=== PATIENT | female | born 1970 | race Caucasian/White ===

== ENCOUNTER 2020-07-04 14:05 | Inpatient (IN) | payer MEDICAID, SELFPAY ==
[2020-07-04 14:13] VITALS: BP 129/70; PULSE 106; RESP 14; TEMP 36.4; O2SAT 97; BMI 27.3
--- NOTE | 2020-07-04 14:23 | W.ED.ABDPA2 ---
Documented by User: KELLE Mixon 07/04/20 16:41 HPI - Abdominal Pain General: Chief Complaint: Abdominal Pain Stated Complaint: lower abd pain Time Seen by Provider: 07/04/20 14:19 History of Present Illness: HPI narrative: Patient is a 49-year-old female who comes to the ED with UTI symptoms. Patient is a past surgical history of a hysterectomy. Symptoms started on Sunday. She describes having a burning sensation when she urinates and also some intermittent cramping pelvic pain. Currently she has no pelvic pain, but says it comes and goes and usually lasts for several minutes to about 1/2-hour. Patient has been taking ibuprofen to help with her pelvic cramping. Denies fever, chills, shortness of breath, chest pain, nausea, diarrhea, constipation, blood in the stool or hematuria. Denies any vaginal discharge or vaginal bleeding. Associated Symptoms: Reports dysuria; Denies chills, constipation, diarrhea, fever(s), hematochezia, hematuria, nausea and vomiting Review of Systems Const: Denies: fever(s), chills or fatigue Eyes: Denies: change in vision or eye discomfort ENMT: Denies: throat pain, odynophagia, nasal discharge or nasal congestion Card: Denies: chest pain, palpitations, edema, swelling of feet/ankles, dyspnea on exertion or orthopnea Resp: Denies: dyspnea, productive cough or non-productive cough GI: Denies: abdominal pain, nausea, vomiting, diarrhea, constipation or hematochezia : Reports: dysuria and pelvic pain (intermittent cramping); Denies: flank pain or hematuria Musc: Denies: neck pain, back pain or extremity swelling Skin/Breast: Denies: rash or new lesions Neuro: Denies: headache(s), numbness in extremities or weakness in extremities PFSH ED PFSH: Social History Smoking and tobacco status: current every day smoker Physical Exam Narrative: EXAM NARRATIVE: Patient is a pleasant 49-year-old female that is sitting comfortably on exam bed when I enter the room. She is showing no signs of acute distress or pain. Const: COMMON NORMALS: no acute distress, patient oriented x3, healthy appearing and alert GENERAL APPEARANCE: cooperative and comfortable HENMT: COMMON NORMALS: normocephalic HEAD & SCALP: normocephalic MOUTH: Normal oral and palatal mucosa present THROAT: posterior oropharynx normal and uvula midline Eye: COMMON NORMALS: Equal, round and reactive pupils present PUPIL: Yes Equal, round and reactive pupils present Neck/C-Spine: COMMON NORMALS: supple GENERAL: Yes normal visual inspection Resp: COMMON NORMALS: normal respiratory effort, No retractions, No use of accessory muscles and clear to auscultation bilaterally AUSCULTATION: clear to auscultation bilaterally Cardio: COMMON NORMALS: regular rate, regular rhythm, S1 normal heart sound present, S2 normal heart sound present, No gallops present (Cardio), No clicks present (Cardio), No murmurs present (Cardio) and Peripheral pulses 2+ throughout RATE: regular rate RHYTHM: regular rhythm HEART SOUNDS: S1 normal heart sound present and S2 normal heart sound present PERIPHERAL PULSES: Peripheral pulses 2+ throughout GI: COMMON NORMALS: Normal to inspection, nondistended, normoactive bowel sounds present, Soft to palpation and no masses PALPATION: Yes Soft to palpation and Yes Tenderness to palpation present (GI) Details: LLQ (mild tenderness) : COMMON NORMALS: Yes no CVA tenderness BLADDER/KIDNEY EXAM: Yes no CVA tenderness Back/Pelvis: COMMON NORMALS: no CVA tenderness Extremity: COMMON NORMALS: normal to inspection and no pedal edema Neuro: COMMON NORMALS: patient oriented x3 SENSORIUM/ORIENTATION: Yes alert GAIT: Yes Normal gait present Skin: COMMON NORMALS: no rashes or lesions noted GENERAL SKIN EXAM: no rashes or lesions noted and dry skin Course Vital Signs: Vital signs: Vital Signs Temperature 97.6 F 07/04/20 14:13 Pulse Rate 106 H 07/04/20 14:13 Respiratory Rate 14 07/04/20 14:13 Blood Pressure 129/70 07/04/20 14:13 Pulse Oximetry 97 07/04/20 14:13 MDM - Abdominal Pain MDM Narrative: Medical decision making narrative: I spoke with Dr. Cardenas about patient's case, lab and CT findings. Patient will need to be admitted. Dr. Cardenas will be taking over patient and managing admitting patient. Lab Data: Attestation: I reviewed the patient's lab results. Labs: Lab Results 08/09/20 08/09/20 08/09/20 Range/Units 14:12 14:29 14:29 WBC 24.9 H (4.0-10.0) 10^3/ uL RBC 3.85 L (4.1-5.3) 10^6/u L Hgb 12.8 (11.5-15.3) g/dL Hct 38.1 (37.0-47.0) % MCV 99.0 (81-99) fL MCH 33.2 (28.0-34.0) pg MCHC 33.6 (30.0-36.0) g/dL RDW 14.3 (12.1-15.1) % Plt Count 338 (130-400) 10^3/c mm MPV 9.4 (7.4-10.4) fL Neut % (Auto) 86.4 % Lymph % (Auto) 6.5 % [place] % (Auto) 5.5 % Eos % (Auto) 0.3 % Baso % (Auto) 0.2 % Neut # (Auto) 21.46 H (1.8-7.7) 10^3/u L Lymph # (Auto) 1.6 (0.8-4.8) 10^3/u L [place] # (Auto) 1.4 H (0.2-0.9) 10^3/u L Eos # (Auto) 0.1 (0.0-0.8) 10^3/u L Baso # (Auto) 0.1 (0.0-0.1) 10^3/u L Nucleated RBC % (a uto) 0 % Nucleated RBCs # 0.0 /100WBC Sodium 133 L (136-145) mmol/L Potassium 4.4 (3.5-5.1) mmol/L Chloride 98 (98-107) mmol/L Carbon Dioxide 27 (22-29) mmol/L Anion Gap 12.4 (5-19) BUN 6 (6-20) mg/dL Creatinine 0.7 (0.5-0.9) mg/dL GFR Calculation 88.9 L (90-130) mL/min Glucose 119 H (65-115) mg/dL Calculated Osmolal ity 273 L (285-295) mOsm/k g Lactic Acid (0.5-2.2) mmol/L Calcium 10.3 (8.5-10.5) mg/dL Total Bilirubin 0.8 (0.15-1.2) mg/dL AST 14 (0-32) U/L ALT 16 (0-33) U/L Alkaline Phosphata se 103 (35-105) IU/L Total Protein 6.9 (6.6-8.7) g/dL Albumin 3.9 (3.5-5.2) g/dL Globulin 3.0 (1.3-4.6) g/dL Lipase 14 (13-60) U/L Urine Color Yellow (Yellow) Urine Appearance Clear (CLEAR) Urine pH 5 (5-7) Ur Specific Gravit y 1.005 (1.005-1.030) Urine Protein Neg (Negative) Urine Glucose (UA) Norm (Normal) Urine Ketones Negative (Negative) Urine Blood 2+ H (Negative) Urine Nitrate Negative (Negative) Urine Bilirubin Neg (NEGATIVE) Urine Urobilinogen Norm (Negative) mg/dL Ur Leukocyte Jo Ann ase Negative (Negative) Urine RBC Rare (0-2) /hpf Urine WBC None (0-5) /hpf Ur Squamous Epith Cells 0-4 H (0-5) Amorphous Sediment Not Reportable Urine Bacteria None (NONE) 07/04/20 Range/Units 14:29 WBC (4.0-10.0) 10^3/ uL RBC (4.1-5.3) 10^6/u L Hgb (11.5-15.3) g/dL Hct (37.0-47.0) % MCV (81-99) fL MCH (28.0-34.0) pg MCHC (30.0-36.0) g/dL RDW (12.1-15.1) % Plt Count (130-400) 10^3/c mm MPV (7.4-10.4) fL Neut % (Auto) % Lymph % (Auto) % [place] % (Auto) % Eos % (Auto) % Baso % (Auto) % Neut # (Auto) (1.8-7.7) 10^3/u L Lymph # (Auto) (0.8-4.8) 10^3/u L [place] # (Auto) (0.2-0.9) 10^3/u L Eos # (Auto) (0.0-0.8) 10^3/u L Baso # (Auto) (0.0-0.1) 10^3/u L Nucleated RBC % (a uto) % Nucleated RBCs # /100WBC Sodium (136-145) mmol/L Potassium (3.5-5.1) mmol/L Chloride (98-107) mmol/L Carbon Dioxide (22-29) mmol/L Anion Gap (5-19) BUN (6-20) mg/dL Creatinine (0.5-0.9) mg/dL GFR Calculation (90-130) mL/min Glucose (65-115) mg/dL Calculated Osmolal ity (285-295) mOsm/k g Lactic Acid 0.9 (0.5-2.2) mmol/L Calcium (8.5-10.5) mg/dL Total Bilirubin (0.15-1.2) mg/dL AST (0-32) U/L ALT (0-33) U/L Alkaline Phosphata se (35-105) IU/L Total Protein (6.6-8.7) g/dL Albumin (3.5-5.2) g/dL Globulin (1.3-4.6) g/dL Lipase (13-60) U/L Urine Color (Yellow) Urine Appearance (CLEAR) Urine pH (5-7) Ur Specific Gravit y (1.005-1.030) Urine Protein (Negative) Urine Glucose (UA) (Normal) Urine Ketones (Negative) Urine Blood (Negative) Urine Nitrate (Negative) Urine Bilirubin (NEGATIVE) Urine Urobilinogen (Negative) mg/dL Ur Leukocyte Jo Ann ase (Negative) Urine RBC (0-2) /hpf Urine WBC (0-5) /hpf Ur Squamous Epith Cells (0-5) Amorphous Sediment Urine Bacteria (NONE) Imaging Data ^: CT Abd/Pel: Attestation: I personally reviewed and interpreted this imaging study as follows: Radiologist's impression: [address] [address] [address] Scan Report Signed with Cassy Patient: Radha Doe Unit #: [id number] : 1970 Age/Sex: 49 / F ADM Date: 07/04/20 Loc: ER Room/Bed: Attending Dr: Ordering Provider/Ordering MD: Trsitan Warner Date of Service: 07/04/20 Procedure(s): CT abdomen pelvis w con* [id number] Accession Number(s): [id number] Report Number: [id number]/CT abdomen pelvis w con* [id number] THIS REPORT CONTAINS FINDINGS THAT MAY BE CRITICAL TO PATIENT CARE. The findings were verbally communicated via telephone conference with Tristan Warner at 4:29 PM CDT on 07/04/2020. The findings were acknowledged and understood. Radiation Dose CTDIVOL = (mGy): DLP = 670.26 (mGy-cm) Addendum Dictated By: Sebastian Cheng MD Addendum Signed By: Sebastian Cheng MD Signed Date/Time: 07/04/20 1630 Addendum Cosigned By: PROCEDURE INFORMATION: Exam: CT Abdomen And Pelvis With Contrast Exam date and time: 07/04/2020 3:10 PM Age: 49 years old Clinical indication: Abdominal tenderness and nausea and vomiting; Prior surgery; Surgery date: 6+ months; Surgery type: Hystorectomy; Patient HX: PT states n/v, cramping x3 days, elevated wbc; Additional info: Lower abdominal pain TECHNIQUE: Imaging protocol: Computed tomography of the abdomen and pelvis with intravenous contrast. Radiation optimization: All CT scans at this facility use at least one of these dose optimization techniques: automated exposure control; mA and/or kV adjustment per patient size (includes targeted exams where dose is matched to clinical indication); or iterative reconstruction. Contrast material: OMNIPAQUE 300; Contrast volume: 95 ml; Contrast route: INTRAVENOUS (IV); COMPARISON: No relevant prior studies available. RADIATION DOSE METRICS: Total DLP (mGy-cm): 670.26 FINDINGS: Liver: Normal. No mass. Gallbladder and bile ducts: Solitary gallstone within the gallbladder. Pancreas: Normal. No ductal dilation. Spleen: Normal. No splenomegaly. Adrenals: Normal. No mass. Kidneys and ureters: Normal. No hydronephrosis. Stomach and bowel: Severe proximal sigmoid diverticulitis. 3.6 x 2.6 x 2.0 cm air-fluid level immediately inferior to the proximal sigmoid colon consistent with developing abscess from loculated/contained perforation of a diverticulum. Mild bowel wall thickening and loops of small bowel adjacent to the contained sigmoid colon perforation. Secondary enteritis/peritonitis. Appendix: Normal appendix. Intraperitoneal space: Prominent inflammation in the fat surrounding the proximal sigmoid colon and developing abscess with no evidence of additional free air or pneumoperitoneum. Vasculature: One or more calcified pelvic phleboliths. Lymph nodes: Unremarkable. No enlarged lymph nodes. Bladder: Unremarkable as visualized. Reproductive: 3.6 and 3.2 cm right ovarian cyst. 1.5 cm left ovarian cyst. Bilateral solitary ovarian calcifications. Status post hysterectomy. Bones/joints: Unremarkable. No acute fracture. Soft tissues: Unremarkable. CT/CT abdomen pelvis w con* [id number] IMPRESSION: 1. Severe proximal sigmoid diverticulitis. 2. 3.6 x 2.6 x 2.0 cm air-fluid level immediately inferior to the proximal sigmoid colon consistent with developing abscess from loculated/contained perforation of a diverticulum. 3. Prominent inflammation in the fat surrounding the proximal sigmoid colon and developing abscess with no evidence of additional free air or pneumoperitoneum. 4. Mild bowel wall thickening within loops of small bowel adjacent to the contained sigmoid colon perforation. Secondary enteritis/peritonitis. Radiation Dose CTDIVOL = (mGy): DLP = 670.26 (mGy-cm) Dictated By: Sebastian Cheng MD Signed By: Sebastian Cheng MD Signed Date/Time: 07/04/201605 DD/ 160 Discharge Plan Discharge Patient Disposition: Admitted As Inpatient Clinical Impression: Diverticulitis, Abdominal abscess Condition: Stable Referrals: Violeta Tavarez MD [Primary Care Provider] - Coding Level of Care Code ED Refractory Manager for Chg Fwd Exam Comprehensive Documented by User: Ana Cardenas 07/04/20 16:38 HPI - Abdominal Pain General: Chief Complaint: Abdominal Pain Stated Complaint: lower abd pain Time Seen by Provider: 07/04/20 14:19 PFSH ED PFSH: Social History Smoking and tobacco status: current every day smoker Course Vital Signs: Vital signs: Vital Signs Temperature 97.6 F 07/04/20 14:13 Pulse Rate 106 H 07/04/20 14:13 Respiratory Rate 14 07/04/20 14:13 Blood Pressure 129/70 07/04/20 14:13 Pulse Oximetry 97 07/04/20 14:13 MDM - Abdominal Pain MDM Narrative: Medical decision making narrative: Care assumed by me after CT scan was performed. On my exam the patient has no peritonitis but has tenderness in the left lower quadrant. She does not appear clinically septic. Her heart rate is improved after IV fluids and pain medication. I reviewed the scan in full with Dr. Wilson who is agreeable to admission. Patient be put on the medical surge floor and receive IV antibiotics and IV fluids. Further care will be dictated by him. Lab Data: Attestation: I reviewed the patient's lab results. Labs: Lab Results 07/04/20 07/04/20 07/04/20 Range/Units 14:12 14:29 14:29 WBC 24.9 H (4.0-10.0) 10^3/ uL RBC 3.85 L (4.1-5.3) 10^6/u L Hgb 12.8 (11.5-15.3) g/dL Hct 38.1 (37.0-47.0) % MCV 99.0 (81-99) fL MCH 33.2 (28.0-34.0) pg MCHC 33.6 (30.0-36.0) g/dL RDW 14.3 (12.1-15.1) % Plt Count 338 (130-400) 10^3/c mm MPV 9.4 (7.4-10.4) fL Neut % (Auto) 86.4 % Lymph % (Auto) 6.5 % [place] % (Auto) 5.5 % Eos % (Auto) 0.3 % Baso % (Auto) 0.2 % Neut # (Auto) 21.46 H (1.8-7.7) 10^3/u L Lymph # (Auto) 1.6 (0.8-4.8) 10^3/u L [place] # (Auto) 1.4 H (0.2-0.9) 10^3/u L Eos # (Auto) 0.1 (0.0-0.8) 10^3/u L Baso # (Auto) 0.1 (0.0-0.1) 10^3/u L Nucleated RBC % (a uto) 0 % Nucleated RBCs # 0.0 /100WBC Sodium 133 L (136-145) mmol/L Potassium 4.4 (3.5-5.1) mmol/L Chloride 98 (98-107) mmol/L Carbon Dioxide 27 (22-29) mmol/L Anion Gap 12.4 (5-19) BUN 6 (6-20) mg/dL Creatinine 0.7 (0.5-0.9) mg/dL GFR Calculation 88.9 L (90-130) mL/min Glucose 119 H (65-115) mg/dL Calculated Osmolal ity 273 L (285-295) mOsm/k g Lactic Acid (0.5-2.2) mmol/L Calcium 10.3 (8.5-10.5) mg/dL Total Bilirubin 0.8 (0.15-1.2) mg/dL AST 14 (0-32) U/L ALT 16 (0-33) U/L Alkaline Phosphata se 103 (35-105) IU/L Total Protein 6.9 (6.6-8.7) g/dL Albumin 3.9 (3.5-5.2) g/dL Globulin 3.0 (1.3-4.6) g/dL Lipase 14 (13-60) U/L Urine Color Yellow (Yellow) Urine Appearance Clear (CLEAR) Urine pH 5 (5-7) Ur Specific Gravit y 1.005 (1.005-1.030) Urine Protein Neg (Negative) Urine Glucose (UA) Norm (Normal) Urine Ketones Negative (Negative) Urine Blood 2+ H (Negative) Urine Nitrate Negative (Negative) Urine Bilirubin Neg (NEGATIVE) Urine Urobilinogen Norm (Negative) mg/dL Ur Leukocyte Jo Ann ase Negative (Negative) Urine RBC Rare (0-2) /hpf Urine WBC None (0-5) /hpf Ur Squamous Epith Cells 0-4 H (0-5) Amorphous Sediment Not Reportable Urine Bacteria None (NONE) 07/04/20 Range/Units 14:29 WBC (4.0-10.0) 10^3/ uL RBC (4.1-5.3) 10^6/u L Hgb (11.5-15.3) g/dL Hct (37.0-47.0) % MCV (81-99) fL MCH (28.0-34.0) pg MCHC (30.0-36.0) g/dL RDW (12.1-15.1) % Plt Count (130-400) 10^3/c mm MPV (7.4-10.4) fL Neut % (Auto) % Lymph % (Auto) % [place] % (Auto) % Eos % (Auto) % Baso % (Auto) % Neut # (Auto) (1.8-7.7) 10^3/u L Lymph # (Auto) (0.8-4.8) 10^3/u L [place] # (Auto) (0.2-0.9) 10^3/u L Eos # (Auto) (0.0-0.8) 10^3/u L Baso # (Auto) (0.0-0.1) 10^3/u L Nucleated RBC % (a uto) % Nucleated RBCs # /100WBC Sodium (136-145) mmol/L Potassium (3.5-5.1) mmol/L Chloride (98-107) mmol/L Carbon Dioxide (22-29) mmol/L Anion Gap (5-19) BUN (6-20) mg/dL Creatinine (0.5-0.9) mg/dL GFR Calculation (90-130) mL/min Glucose (65-115) mg/dL Calculated Osmolal ity (285-295) mOsm/k g Lactic Acid 0.9 (0.5-2.2) mmol/L Calcium (8.5-10.5) mg/dL Total Bilirubin (0.15-1.2) mg/dL AST (0-32) U/L ALT (0-33) U/L Alkaline Phosphata se (35-105) IU/L Total Protein (6.6-8.7) g/dL Albumin (3.5-5.2) g/dL Globulin (1.3-4.6) g/dL Lipase (13-60) U/L Urine Color (Yellow) Urine Appearance (CLEAR) Urine pH (5-7) Ur Specific Gravit y (1.005-1.030) Urine Protein (Negative) Urine Glucose (UA) (Normal) Urine Ketones (Negative) Urine Blood (Negative) Urine Nitrate (Negative) Urine Bilirubin (NEGATIVE) Urine Urobilinogen (Negative) mg/dL Ur Leukocyte Jo [place] ase (Negative) Urine RBC (0-2) /hpf Urine WBC (0-5) /hpf Ur Squamous Epith Cells (0-5) Amorphous Sediment Urine Bacteria (NONE) Discharge Plan Discharge Patient Disposition: Admitted As Inpatient Clinical Impression: Diverticulitis, Abdominal abscess Condition: Stable Referrals: Violeta Tavarez MD [Primary Care Provider] - Coding Level of Care Code ED Refractory Manager for Chg Fwd Exam Comprehensive
[2020-07-04 14:28] LABS: Bilirubin Urine Neg (NEGATIVE); Blood Urine 2+ (Negative); Glucose Urine UA Norm (Normal); Ketones Urine Negative (Negative); Leukocyte Esterase Urine Negative (Negative); Nitrate Urine Negative (Negative); Protein Urine Neg (Negative); Specific Gravity, Urine 1.005 (1.005-1.030); Urine Appearance Clear (CLEAR); Urine Color Yellow (Yellow); Urobilinogen Urine Norm (Negative); pH Urine 5 (5-7)
[2020-07-04 14:29] LABS: RBC Urine RARE /hpf (0-2); Squamous Epithelial Cell Urine 0-4 (0-5)
[2020-07-04 14:31] LABS: Add Urine Culture? No
[2020-07-04 14:35] LABS: Basophils # 0.1 10^3/uL (0.0-0.1); Basophils % 0.2 %; Eosinophils # 0.1 10^3/uL (0.0-0.8); Eosinophils % 0.3 %; Hematocrit 38.1 % (37.0-47.0); Hemoglobin 12.8 g/dL (11.5-15.3); Lymphocytes # 1.6 10^3/uL (0.8-4.8); Lymphocytes % 6.5 %; Mean Corpuscular HGB Conc 33.6 g/dL (30.0-36.0); Mean Corpuscular Hemoglobin 33.2 pg (28.0-34.0); Mean Platelet Volume 9.4 fL (7.4-10.4); Monocytes # 1.4 10^3/uL (0.2-0.9); Monocytes % 5.5 %; Neutrophils # 21.46 10^3/uL (1.8-7.7); Neutrophils % 86.4 %; Nucleated Red Blood Cells % 0 %; Platelet Count 338 10^3/cmm (130-400); Red Blood Count 3.85 10^6/uL (4.1-5.3); Red Cell Distribution Width 14.3 % (12.1-15.1); White Blood Count 24.9 10^3/uL (4.0-10.0)
--- NOTE | 2020-07-04 14:58 | CTR_ITS ---
PROCEDURE INFORMATION: Exam: CT Abdomen And Pelvis With Contrast Exam date and time: 07/04/2020 3:10 PM Age: 49 years old Clinical indication: Abdominal tenderness and nausea and vomiting; Prior surgery; Surgery date: 6+ months; Surgery type: Hystorectomy; Patient HX: PT states n/v, cramping x3 days, elevated wbc; Additional info: Lower abdominal pain TECHNIQUE: Imaging protocol: Computed tomography of the abdomen and pelvis with intravenous contrast. Radiation optimization: All CT scans at this facility use at least one of these dose optimization techniques: automated exposure control; mA and/or kV adjustment per patient size (includes targeted exams where dose is matched to clinical indication); or iterative reconstruction. Contrast material: OMNIPAQUE 300; Contrast volume: 95 ml; Contrast route: INTRAVENOUS (IV); COMPARISON: No relevant prior studies available. RADIATION DOSE METRICS: Total DLP (mGy-cm): 670.26 FINDINGS: Liver: Normal. No mass. Gallbladder and bile ducts: Solitary gallstone within the gallbladder. Pancreas: Normal. No ductal dilation. Spleen: Normal. No splenomegaly. Adrenals: Normal. No mass. Kidneys and ureters: Normal. No hydronephrosis. Stomach and bowel: Severe proximal sigmoid diverticulitis. 3.6 x 2.6 x 2.0 cm air-fluid level immediately inferior to the proximal sigmoid colon consistent with developing abscess from loculated/contained perforation of a diverticulum. Mild bowel wall thickening and loops of small bowel adjacent to the contained sigmoid colon perforation. Secondary enteritis/peritonitis. Appendix: Normal appendix. Intraperitoneal space: Prominent inflammation in the fat surrounding the proximal sigmoid colon and developing abscess with no evidence of additional free air or pneumoperitoneum. Vasculature: One or more calcified pelvic phleboliths. Lymph nodes: Unremarkable. No enlarged lymph nodes. Bladder: Unremarkable as visualized. Reproductive: 3.6 and 3.2 cm right ovarian cyst. 1.5 cm left ovarian cyst. Bilateral solitary ovarian calcifications. Status post hysterectomy. Bones/joints: Unremarkable. No acute fracture. Soft tissues: Unremarkable. CT/CT abdomen pelvis w con* [id number] IMPRESSION: 1. Severe proximal sigmoid diverticulitis. 2. 3.6 x 2.6 x 2.0 cm air-fluid level immediately inferior to the proximal sigmoid colon consistent with developing abscess from loculated/contained perforation of a diverticulum. 3. Prominent inflammation in the fat surrounding the proximal sigmoid colon and developing abscess with no evidence of additional free air or pneumoperitoneum. 4. Mild bowel wall thickening within loops of small bowel adjacent to the contained sigmoid colon perforation. Secondary enteritis/peritonitis. Radiation Dose CTDIVOL = (mGy): DLP = 670.26 (mGy-cm)
[2020-07-04 15:11] LABS: Alanine Aminotransferase 16 U/L (0-33); Albumin Level 3.9 g/dL (3.5-5.2); Alkaline Phosphatase 103 IU/L (35-105); Anion Gap 12.4 (5-19); Aspartate Amino Transferase 14 U/L (0-32); Blood Urea Nitrogen 6 mg/dL (6-20); Calcium 10.3 mg/dL (8.5-10.5); Carbon Dioxide 27 mmol/L (22-29); Chloride 98 mmol/L (98-107); Glomerular Filtration Rate 88.9 mL/min (90-130); Glucose 119 mg/dL (65-115); Lipase 14 U/L (13-60); Osmolality Calculated 273 mOsm/kg (285-295); Potassium 4.4 mmol/L (3.5-5.1); Sodium 133 mmol/L (136-145); Total Bilirubin 0.8 mg/dL (0.15-1.2); Total Protein 6.9 g/dL (6.6-8.7)
[2020-07-04] MEDS: iohexol 300 mg/mL 100 mL Btl IV (15:20)
[2020-07-04] MEDS: piperacillin-tazobactam 3.375 GM in sodium chloride 0.9% (plus) 50 ML IV ×2 (16:31→23:52)
[2020-07-04 16:32] LABS: Lactic Sepsis W/Reflex 0.9 mmol/L (0.5-2.2)
[2020-07-04 17:52] VITALS: BP 127/80; PULSE 73; RESP 14; O2SAT 98
[2020-07-04] MEDS: dextrose 5%-sod chloride 0.45% 1,000 ML 100 ML IV (18:02)
--- NOTE | 2020-07-04 19:32 | PM.HP ---
Providers/Chief Complaint Admitting Physician: Shay Wilson MD Primary Care Provider: Violeta Tavarez MD Chief Complaint: lower abd pain History of Present Illness Radha Doe is a 49 year old female who presented to the ER from the urgent care with left lower quadrant pain. Patient states that her abdominal pain started 2 weeks ago when she thought she was having a UTI. She went to the urgent care today and she had vomiting when she tried to drink a lot of water to get a urine sample. Patient denies any fevers or chills. No constipation or diarrhea. No similar episodes in the past. No history of prior diverticulitis. No prior colonoscopy. Review of Systems General: Reports: 10 or more systems reviewed and unremarkable except in HPI and below Medications/Allergies Home Medications Medication Instructions Recorded Confirmed Last Taken Type albuterol sulfate 2.5 mg INHALATION Q4H PRN 07/04/20 07/04/20 07/04/20 History ibuprofen 800 mg PO TID PRN 07/04/20 07/04/20 07/04/20 13:40 History 800 mg Allergies Allergy/AdvReac Type Severity Reaction Status Date / Time No Known Allergies Allergy Verified 07/04/20 14:41 PFSH Acute PFSH: Medical History (Updated 07/04/20 @ 19:34 by Shay Wilson MD) Diverticular disease of intestine with perforation and abscess Surgical History (Updated 07/04/20 @ 19:32 by Shay Wilson MD) H/O tubal ligation H/O: hysterectomy S/P excision of ganglion cyst Social History Smoking and tobacco status: current every day smoker Female Reproductive History: Date of last menstrual period: 11/26/14 Vitals/I&O/Wt Last Vital Signs Temp 97.6 F 07/04/20 14:13 Pulse 73 07/04/20 17:52 Resp 14 07/04/20 17:52 BP 127/80 07/04/20 17:52 Pulse Ox 98 07/04/20 17:52 Weight last 48 hrs Weight 154 lb Physical Exam Narrative: EXAM NARRATIVE: HEENT: Normocephalic Eye: Sclera /conjunctiva normal Respiratory and chest: Bilateral clear breath sounds on auscultation Cardiovascular: Normal S1 and S2 heart sounds Abdomen: Soft to palpation, tender left lower quadrant, rest of the abdomen is benign Neurological: Oriented to place person and time Skin: Intact, no lesions appreciated on gross exam Data : 07/04/20 14:29 07/04/20 14:29 Micro: Microbiology 07/04/20 14:29 Blood Culture - Preliminary Blood SPECIMEN COLLECTED CT Abd/Pel: Radiologist's impression: 1. Severe proximal sigmoid diverticulitis. 2. 3.6 x 2.6 x 2.0 cm air-fluid level immediately inferior to the proximal sigmoid colon consistent with developing abscess from loculated/contained perforation of a diverticulum. 3. Prominent inflammation in the fat surrounding the proximal sigmoid colon and developing abscess with no evidence of additional free air or pneumoperitoneum. 4. Mild bowel wall thickening within loops of small bowel adjacent to the contained sigmoid colon perforation. Secondary enteritis/peritonitis. A&P Assessment and plan (1) Diverticular disease of intestine with perforation and abscess: 49-year-old female who presents with left lower quadrant pain, leukocytosis of 24.[address] scan showing perforated sigmoid diverticulitis with 3.6 x 2.6 x 2 cm abscess. Patient is currently hemodynamically stable IV fluids at 125 cc/h N.p.o. except ice chips Daily labs IV Zosyn Lovenox for DVT prophylaxis Pepcid for GI prophylaxis Patient will need greater than 2 nights of inpatient stay to ensure resolution of leukocytosis and that she does not need surgery Status: Acute Attestations Medical Necessity Statement*: Perforated diverticular abscess requiring continued inpatient stay for IV antibiotics Coding Level of Care Code Acute [employer] Driver for vladimir Dawkins Diagnoses Diverticular disease of intestine with perforation and abscess K57.80
[2020-07-04] MEDS: famotidine 20 mg/2 mL INJ IVP (19:41)
[2020-07-04] MEDS: D5-NS 0.45% + KCL 20 mEq 20 MEQ/1,000 ML BAG 125 MEQ IV (19:42)
[2020-07-04 20:05] VITALS: BP 127/78; PULSE 93; RESP 18; TEMP 36.6; O2SAT 99
[2020-07-04 20:41] VITALS: PULSE 96; RESP 12; O2SAT 97
[2020-07-04] MEDS: acetaminophen 325 mg Tablet 650 MG PO (22:58)
[2020-07-05] VITALS (9 sets, daily range): BP systolic 100–140; BP diastolic 59–73; PULSE 82–113; RESP 16–20; TEMP 36.7–37.1; O2SAT 94–98
[2020-07-05] MEDS: D5-NS 0.45% + KCL 20 mEq 20 MEQ/1,000 ML BAG 125 MEQ IV ×3 (02:48→20:22)
[2020-07-05] MEDS: morphine 4 mg/mL SDV 1 mL 2 MG IVP ×2 (03:24→20:59)
[2020-07-05 04:38] LABS: Basophils % 0.2 %; Eosinophils # 0.1 10^3/uL (0.0-0.8); Eosinophils % 0.4 %; Hematocrit 38.3 % (37.0-47.0); Hemoglobin 12.9 g/dL (11.5-15.3); Lymphocytes % 9.5 %; Mean Corpuscular HGB Conc 33.7 g/dL (30.0-36.0); Mean Corpuscular Hemoglobin 34.2 pg (28.0-34.0); Mean Corpuscular Volume 101.6 fL (81-99); Mean Platelet Volume 9.9 fL (7.4-10.4); Monocytes # 1.2 10^3/uL (0.2-0.9); Monocytes % 5.6 %; Neutrophils # 17.32 10^3/uL (1.8-7.7); Neutrophils % 82.9 %; Nucleated Red Blood Cells % 0 %; Platelet Count 353 10^3/cmm (130-400); Red Blood Count 3.77 10^6/uL (4.1-5.3); Red Cell Distribution Width 14.4 % (12.1-15.1); White Blood Count 20.9 10^3/uL (4.0-10.0)
[2020-07-05 04:55] LABS: Anion Gap 10.2 (5-19); Blood Urea Nitrogen 6 mg/dL (6-20); Calcium 8.9 mg/dL (8.5-10.5); Carbon Dioxide 26 mmol/L (22-29); Chloride 104 mmol/L (98-107); Glomerular Filtration Rate 88.9 mL/min (90-130); Glucose 114 mg/dL (65-115); Osmolality Calculated 279 mOsm/kg (285-295); Potassium 4.2 mmol/L (3.5-5.1); Sodium 136 mmol/L (136-145)
[2020-07-05] MEDS: enoxaparin 40 mg/0.4 mL Syringe SUBCUT (05:52)
[2020-07-05] MEDS: ondansetron 2 mg/ML SDV 2 mL 4 MG IVP (05:58)
[2020-07-05] MEDS: acetaminophen 325 mg Tablet 650 MG PO ×2 (07:44→14:13)
[2020-07-05] MEDS: piperacillin-tazobactam 3.375 GM in sodium chloride 0.9% (plus) 50 ML IV ×2 (07:44→17:59)
[2020-07-05] MEDS: famotidine 20 mg/2 mL INJ IVP ×2 (07:49→18:46)
[2020-07-05] MEDS: docusate sodium 100 mg Capsule PO ×2 (08:10→17:59)
--- NOTE | 2020-07-05 15:38 | PM.PN ---
Subjective Subjective: Interval history: She has some left lower quadrant pain, no nausea or vomiting, feels a bit bloated Vitals/I&O/Wt Last Vital Signs Temp 98.1 F 07/05/20 12:30 Pulse 88 07/05/20 12:30 Resp 18 07/05/20 12:30 BP 111/73 07/05/20 12:30 Pulse Ox 98 07/05/20 12:30 07/05/20 07/05/20 07/05/20 06:59 14:59 22:59 Intake Total 937.5 / 937.5 1220 / 1220 Output Total 1150 / 1350 300 / 300 Balance -212.5 / -412.5 920 / 920 Weight last 48 hrs Weight 154 lb Physical Exam Narrative: EXAM NARRATIVE: Abdomen: Soft, minimally distended, tender left lower quadrant Data : 07/05/20 03:47 07/05/20 03:47 Micro: Microbiology 07/04/20 14:29 Blood Culture - Preliminary Blood NEGATIVE TO DATE A&P Assessment and plan (1) Diverticular disease of intestine with perforation and abscess: 49-year-old female who presents with left lower quadrant pain, WBC down to 20 today. Patient is currently hemodynamically stable IV fluids at 125 cc/h Clear liquid diet Daily labs IV Zosyn Lovenox for DVT prophylaxis Pepcid for GI prophylaxis Patient will need greater than 2 nights of inpatient stay to ensure resolution of leukocytosis and that she does not need surgery Status: Acute Attestations Medical Necessity Statement*: Perforated diverticulitis Coding Level of Care Code Acute Bomb Squad Officer for vladimir Dawkins Diagnoses Diverticular disease of intestine with perforation and abscess K57.80
[2020-07-06] VITALS (9 sets, daily range): BP systolic 108–122; BP diastolic 62–77; PULSE 75–97; RESP 14–20; TEMP 36.4–37.1; O2SAT 94–98
[2020-07-06] MEDS: piperacillin-tazobactam 3.375 GM in sodium chloride 0.9% (plus) 50 ML IV ×3 (00:13→18:20)
[2020-07-06] MEDS: morphine 4 mg/mL SDV 1 mL 2 MG IVP (00:19)
[2020-07-06 05:03] LABS: Basophils # 0.1 10^3/uL (0.0-0.1); Basophils % 0.4 %; Eosinophils # 0.2 10^3/uL (0.0-0.8); Eosinophils % 1.3 %; Hematocrit 37.6 % (37.0-47.0); Lymphocytes # 1.7 10^3/uL (0.8-4.8); Lymphocytes % 10.6 %; Mean Corpuscular HGB Conc 31.9 g/dL (30.0-36.0); Mean Corpuscular Hemoglobin 32.8 pg (28.0-34.0); Mean Corpuscular Volume 102.7 fL (81-99); Mean Platelet Volume 9.7 fL (7.4-10.4); Monocytes # 1.1 10^3/uL (0.2-0.9); Monocytes % 6.4 %; Neutrophils # 13.05 10^3/uL (1.8-7.7); Neutrophils % 79.7 %; Nucleated Red Blood Cells % 0 %; Platelet Count 355 10^3/cmm (130-400); Red Blood Count 3.66 10^6/uL (4.1-5.3); Red Cell Distribution Width 14.3 % (12.1-15.1); White Blood Count 16.4 10^3/uL (4.0-10.0)
[2020-07-06 05:30] LABS: Anion Gap 8.2 (5-19); Blood Urea Nitrogen 4 mg/dL (6-20); Calcium 8.8 mg/dL (8.5-10.5); Carbon Dioxide 30 mmol/L (22-29); Chloride 102 mmol/L (98-107); Glomerular Filtration Rate 76.2 mL/min (90-130); Glucose 123 mg/dL (65-115); Osmolality Calculated 279 mOsm/kg (285-295); Potassium 4.2 mmol/L (3.5-5.1); Sodium 136 mmol/L (136-145)
[2020-07-06] MEDS: ondansetron 2 mg/ML SDV 2 mL 4 MG IVP (05:43)
[2020-07-06] MEDS: famotidine 20 mg/2 mL INJ IVP ×2 (06:29→18:30)
[2020-07-06] MEDS: enoxaparin 40 mg/0.4 mL Syringe SUBCUT (08:39)
[2020-07-06] MEDS: acetaminophen 325 mg Tablet 650 MG PO (12:05)
--- NOTE | 2020-07-06 17:32 | P.PN_ITS ---
Subjective Subjective: Interval history: Patient passing small amount of flatus, no BM, no nausea or vomiting, tolerating full liquid diet Vitals/I&O/Wt Last Vital Signs Temp 97.7 F 07/06/20 16:00 Pulse 76 07/06/20 16:00 Resp 14 07/06/20 16:00 BP 117/73 07/06/20 16:00 Pulse Ox 98 07/06/20 16:00 07/06/20 07/06/20 07/06/20 06:59 14:59 22:59 Intake Total 50 / 2850 120 / 120 Output Total 1500 / 2350 900 / 900 Balance -1450 / 500 120 / -780 -900 / -780 Physical Exam Narrative: EXAM NARRATIVE: Abdomen: Soft, slightly distended, nontender Data : 07/07/20 04:47 07/07/20 04:47 Micro: Microbiology 07/04/20 14:29 Blood Culture - Preliminary Blood NEGATIVE TO DATE A&P Assessment and plan (1) Diverticular disease of intestine with perforation and abscess: 49-year-old female who presents with left lower quadrant pain, WBC down to 16 today. Patient is currently hemodynamically stable IV fluids at50 cc/h Clear liquid diet Daily labs IV Zosyn Lovenox for DVT prophylaxis Pepcid for GI prophylaxis Patient will need greater than 2 nights of inpatient stay to ensure resolution of leukocytosis and that she does not need surgery Status: Acute Attestations Medical Necessity Statement*: Perforated sigmoid diverticulitis requiring continued IV antibiotics Coding Level of Care Code Acute Journeyman Pipefitter for [facility] Pamela Diagnoses Diverticular disease of intestine with perforation and abscess K57.80
[2020-07-06] MEDS: D5-NS 0.45% + KCL 20 mEq 20 MEQ/1,000 ML BAG 125 MEQ IV (18:21)
[2020-07-07] VITALS: BP 121/72; PULSE 76; RESP 20; TEMP 36.8; O2SAT 97
[2020-07-07] MEDS: piperacillin-tazobactam 3.375 GM in sodium chloride 0.9% (plus) 50 ML IV (01:21)
[2020-07-07 05:18] VITALS: BP 102/65; PULSE 71; RESP 20; TEMP 36.6; O2SAT 97
[2020-07-07 06:22] LABS: Basophils # 0.1 10^3/uL (0.0-0.1); Basophils % 0.5 %; Eosinophils # 0.6 10^3/uL (0.0-0.8); Eosinophils % 4.6 %; Hematocrit 40.7 % (37.0-47.0); Hemoglobin 13.2 g/dL (11.5-15.3); Lymphocytes # 1.8 10^3/uL (0.8-4.8); Lymphocytes % 15.5 %; Mean Corpuscular HGB Conc 32.4 g/dL (30.0-36.0); Mean Corpuscular Hemoglobin 33.2 pg (28.0-34.0); Mean Corpuscular Volume 102.3 fL (81-99); Mean Platelet Volume 9.8 fL (7.4-10.4); Monocytes # 0.8 10^3/uL (0.2-0.9); Monocytes % 6.7 %; Neutrophils # 8.24 10^3/uL (1.8-7.7); Neutrophils % 69.7 %; Nucleated Red Blood Cells % 0 %; Platelet Count 456 10^3/cmm (130-400); Red Blood Count 3.98 10^6/uL (4.1-5.3); Red Cell Distribution Width 14.3 % (12.1-15.1); White Blood Count 11.8 10^3/uL (4.0-10.0)
[2020-07-07 06:56] LABS: Anion Gap 10.2 (5-19); Blood Urea Nitrogen 5 mg/dL (6-20); Calcium 9.1 mg/dL (8.5-10.5); Carbon Dioxide 31 mmol/L (22-29); Chloride 102 mmol/L (98-107); Glomerular Filtration Rate 88.9 mL/min (90-130); Glucose 89 mg/dL (65-115); Osmolality Calculated 283 mOsm/kg (285-295); Potassium 4.2 mmol/L (3.5-5.1); Sodium 139 mmol/L (136-145)
[2020-07-07 08:00] VITALS: BP 115/66; PULSE 74; RESP 16; TEMP 37; O2SAT 97
[2020-07-07] MEDS: famotidine 20 mg/2 mL INJ IVP (08:33)
[2020-07-07 08:39] VITALS: PULSE 78; RESP 16; O2SAT 97
[2020-07-07 08:42] VITALS: PULSE 83
--- NOTE | 2020-07-07 08:45 | P.PN_ITS ---
Subjective Subjective: Interval history: Patient feels great, no nausea or vomiting, tolerating a liquid diet, passing flatus no BM Vitals/I&O/Wt Last Vital Signs Temp 98.6 F 07/07/20 08:00 Pulse 83 07/07/20 08:42 Resp 16 07/07/20 08:39 BP 115/66 07/07/20 08:00 Pulse Ox 97 07/07/20 08:39 07/06/20 07/07/20 07/07/20 22:59 06:59 14:59 Intake Total 222.083 / 392.083 Output Total 1200 / 1500 300 / 1500 600 / 600 Balance -977.917 / -1107.917 -300 / -1107.917 -600 / -600 Weight last 48 hrs Weight 178 lb 2 oz Physical Exam Narrative: EXAM NARRATIVE: Abdomen: Soft, nondistended, minimally tender Data : 07/07/20 04:47 07/07/20 04:47 A&P Assessment and plan (1) Diverticular disease of intestine with perforation and abscess: 49-year-old female who presents with left lower quadrant pain, WBC down to 16 today. Patient is currently hemodynamically stable DC home today Status: Acute Attestations Medical Necessity Statement*: Perforated diverticulitis Coding Level of Care Code Acute [place] Technical Lead Senior Developer for Nayeli Dawkins Diagnoses Diverticular disease of intestine with perforation and abscess K57.80
--- NOTE | 2020-07-07 08:48 | PM.DCS ---
Discharge Providers Date of Admission: 07/04/20 16:27 Date of Discharge: July 07, 2020 Attending Provider at Admission: Shay Wilson MD Attending Provider at Discharge: Shay Wilson MD Primary Care Provider: Violeta Tavarez MD Diagnoses at Discharge Discharge Diagnosis (1) Diverticular disease of intestine with perforation and abscess: Status: Acute Reason for Visit Reason for Visit: lower abd pain Hospital Course Hospital Course: This is a 49-year-old female who was admitted to the hospital for IV antibiotics for perforated sigmoid diverticulitis. Over the next 3 days her white count went down from 20 5K to 11 K. Patient is afebrile and hemodynamically stable and tolerating a full liquid diet at time of discharge. Since patient is doing clinically better I did not repeat imaging but plan to obtain a CT abdomen pelvis in 2 weeks to ensure resolution of abscess. Discharge Data Data Completed and Pending: Completed Studies During Hospitalization Category Date Time Status CT abdomen pelvis w con* [id number] Urge nt Cat Scan 07/04/20 14:58 Completed Pending at discharge Category Date Time Status Blood Culture Sta t Lab 07/04/20 14:29 Results Labs from last 24 hours 07/07/20 07/07/20 04:47 04:47 WBC 11.8 H RBC 3.98 L Hgb 13.2 Hct 40.7 MCV 102.3 H MCH 33.2 MCHC 32.4 RDW 14.3 Plt Count 456 H MPV 9.8 Neut % (Auto) 69.7 Lymph % (Auto) 15.5 [place] % (Auto) 6.7 Eos % (Auto) 4.6 Baso % (Auto) 0.5 Neut # (Auto) 8.24 H Lymph # (Auto) 1.8 [place] # (Auto) 0.8 Eos # (Auto) 0.6 Baso # (Auto) 0.1 Nucleated RBC % (a uto) 0 Nucleated RBCs # 0.0 Sodium 139 Potassium 4.2 Chloride 102 Carbon Dioxide 31 H Anion Gap 10.2 BUN 5 L Creatinine 0.7 GFR Calculation 88.9 L Glucose 89 Calculated Osmolal ity 283 L Calcium 9.1 Vitals: Last Vital Signs Temp 98.6 F 07/07/20 08:00 Pulse 83 07/07/20 08:42 Resp 16 07/07/20 08:39 BP 115/66 07/07/20 08:00 Pulse Ox 97 07/07/20 08:39 Discharge Plan Discharge Patient Disposition: Home Condition: Stable Prescriptions: New Senna Plus 8.6-50 mg capsule 1 tab-cap PO BID Qty: 60 RF: 0 Continued ibuprofen 800 mg Tablet 800 mg PO TID PRN (Reason: Pain) RF: 0 albuterol sulfate 2.5 mg /3 mL (0.083 %) Solution For Nebulization 2.5 mg INHALATION Q4H PRN (Reason: Shortness Of Breath) RF: 0 Discharge Orders: Discharge Order (Routine); Ordered 07/07/20 Ordered By: Shay Wilson Referrals: Violeta Tavarez MD [Primary Care Provider] - Shay Wilson MD [Physician] - 2 weeks Discharge Diet: Advance as tolerated Discharge Activity: Resume usual activity Discharge Attestations Time Spent in Discharge Care*: less than 30 min Quality Metrics Clinical Quality Measures During this hospital stay, did patient experience: None Coding Level of Care Code Acute Chocolate Finisher for [facility] Fwd Diagnoses Diverticular disease of intestine with perforation and abscess K57.80
[2020-07-07] MEDS: acetaminophen 325 mg Tablet 650 MG PO (09:14)
[2020-07-07 09:56] VITALS: BP 115/66; PULSE 83; RESP 16; TEMP 37; O2SAT 97
--- NOTE | 2020-07-07 12:19 | PC.RESP ---
Smoking Cessation information sent to patient.
== END 2020-07-07 10:25 | disposition home or self-care (01) | DRG 392 ==
LOC: ER 16:38 → MEDSURG 17:32
PROVIDERS: Emergency Medicine; Physician Assistant; Admitting Provider Surgery; PCP Family Medicine; Visit Provider Surgery
DX: K57.80 Diverticulitis of intestine, part unspecified, with perforation and abscess without bleeding (principal); F17.210 Nicotine dependence, cigarettes, uncomplicated
CPT/HCPCS: 12345; 36415; 74177; 80048; 80053; 81000; 81001; 83605; 83690; 85025; 87040; 87086; 94640; 96372; 96375; 99283; J1650; J2270; J2405; J2543; J3490; J7611; J7799; Q9967

== ENCOUNTER 2020-07-22 07:47 | Outpatient (CLI) | payer MEDICAID, SELFPAY ==
--- NOTE | 2020-07-22 09:30 | CT_ITS ---
WS: [id number] CT ABDOMEN AND PELVIS WITH CONTRAST HISTORY: perforated diverticulitis TECHNIQUE: Imaging performed of the abdomen and pelvis with IV contrast. Single phase imaging of the abdomen. Coronal and sagittal reformats are submitted. All CT scans at [facility] use at least one of these dose optimization techniques: automated exposure control; mA and/or kV adjustment per patient size (includes targeted exams where dose is matched to clinical indication); or iterativ e reconstruction. IV CONTRAST: Omnipaque 300; 95 mL IV. Oral contrast: Yes. DLP: 1041.64 mGycm COMPARISON: 07/04/2020 Lower thorax: Lung bases are clear. Heart is normal size. Small hiatal hernia. Liver/biliary system: Mild hepatomegaly. No bile duct dilatation. No mass. Gallbladder: Mildly contracted gallbladder with a central stone. No adjacent inflammation. Pancreas: Normal. Spleen: Normal. Adrenal glands: Normal. Right kidney: Normal. Left kidney: Normal. Aorta: Mild atherosclerosis with no aneurysm. Lymphadenopathy: None. Free fluid: None. GI tract: Significant improvement in the recently described inflammatory process surrounding the sigm oid colon. There is mild persistent bowel wall thickening measuring up to 10 mm of the sigmoid colon. The lumen is narrowed throughout a long segment of the sigmoid but no obstruction. Significant decre ase in size of the abscess posterior and inferior to the sigmoid. There are a few small foci of air p ersistent the cavity has significantly decreased in size. Maximum diameter of 1.6 cm. The adjacent sm all bowel loops are also mildly thickened but improved. The mesenteric edema and inflammatory strandi ng has improved significantly but mildly persists. The appendix is normal. Abdominal wall: Unremarkable abdominal wall. No hernia. Pelvis: Normally distended urinary bladder. Bilateral small ovarian follicles. RIGHT ovarian cyst celena suring 2.7 cm has decreased in size. Bones: Mild straightening of the normal lumbar lordosis. CT/CT abdomen pelvis w con* [id number] IMPRESSION: 1. Significant improvement in the acute sigmoid diverticulitis and adjacent si gmoid abscess. 2. Persistent sigmoid wall thickening with narrowing of the lumen. Wall thicke zack measures 10 mm. 3. Significant decrease in size of the sigmoid abscess now measuring 1.6 cm wi th persistent foci of air in the cavity. 4. Cholelithiasis without acute cholecystitis. 5. Significant improvement of mesenteric edema.
[2020-07-22] MEDS: iohexol 300 mg/mL 50 mL Btl PO (09:34)
[2020-07-22] MEDS: iohexol 300 mg/mL 100 mL Btl IV (09:47)
== END 2020-07-22 07:48 | disposition home or self-care (01) ==
LOC: RADWPI 07:51
PROVIDERS: PCP Family Medicine; Visit Provider Surgery
DX: K57.20 Diverticulitis of large intestine with perforation and abscess without bleeding (principal); K80.20 Calculus of gallbladder without cholecystitis without obstruction; R60.0 Localized edema
CPT/HCPCS: 74177; Q9967

== ENCOUNTER → 2021-01-23 11:35 | Outpatient (BNVA) | payer MEDICAID, SELFPAY | PROVIDERS: PCP Family Medicine; Visit Provider Nurse Practitioner | DX: R05 Cough (principal) | CPT/HCPCS: 71046 ==

== ENCOUNTER 2021-01-25 10:56 | Outpatient (CLI) | payer MEDICAID, SELFPAY ==
--- NOTE | 2021-01-25 11:04 | MM_ITS ---
WS: [id number] BILATERAL SCREENING DIGITAL MAMMOGRAM WITH CAD HISTORY: SCREENING COMPARISON: 11/20/2019, 11/15/2018 and 10/06/2015 Bilateral CC and MLO views submitted. Computer aided detection analyzed. Breast composition: There are scattered areas of fibroglandular density. Architectural distortion seen just lateral to the nipple in the LEFT breast on the CC projection. Oth erwise the pattern is stable. MM/[place] [id number] IMPRESSION: BI-RADS: 0-Incomplete: Need additional imaging evaluation FOLLOW UP: Need Additional Imaging LEFT breast: Spot compression views (CC and MLO). True ML. Ultrasound to follow if abnormality persists.
== END 2021-01-25 10:57 | disposition home or self-care (01) ==
LOC: RADSHAW 10:58
PROVIDERS: PCP Family Medicine; Visit Provider Nurse Practitioner Family
DX: Z12.31 Encounter for screening mammogram for malignant neoplasm of breast (principal)
CPT/HCPCS: 77067

== ENCOUNTER 2021-02-16 12:49 | Outpatient (CLI) | payer MEDICAID, SELFPAY ==
--- NOTE | 2021-02-16 13:14 | US_ITS ---
WS: [id number] DIAGNOSTIC LEFT DIGITAL MAMMOGRAM WITH CAD LEFT breast ultrasound, limited HISTORY: LT BREAST ARCHITECTURAL DISTORTION COMPARISON: 01/25/2021, 11/20/2019 and 11/15/2018 Technique: ML view. Spot compression CC and MLO. Breast composition: There are scattered areas of fibroglandular density. The architectural distortio n persists but appears less significant on the spot compression view. Dense fibroglandular tissue in the superior breast towards the upper outer quadrant. LEFT breast ultrasound, limited. There is no soft tissue mass or shadowing or distortion seen by ultrasound in the superior portion of the LEFT breast towards the upper outer quadrant. There is dense fibroglandular tissue at 12-1 o'maykel ck which is probably responsible for the mammographic findings. There is also a small cyst at 1:00, 2 cm from the nipple measuring 5 x 4 x 3 mm. US/US breast LT limited* [id number] IMPRESSION: BI-RADS: 2-Benign FOLLOW UP: 1 Year Follow-up
== END 2021-02-16 12:50 | disposition home or self-care (01) ==
PROVIDERS: PCP Family Medicine; Visit Provider Nurse Practitioner Family
DX: R92.8 Other abnormal and inconclusive findings on diagnostic imaging of breast (principal); N60.02 Solitary cyst of left breast
CPT/HCPCS: 76642; 77065

== ENCOUNTER 2021-02-23 20:23 | Inpatient (IN) | payer MEDICAID, SELFPAY ==
[2021-02-23] VITALS (15 sets, daily range): BP systolic 112–160; BP diastolic 80–116; PULSE 112–126; RESP 16–32; TEMP 36.6; O2SAT 90–99; BMI 27.4; BMI 28.3
--- NOTE | 2021-02-23 20:31 | XR_ITS ---
WS: [id number] Portable AP upright chest, 02/23/2021 Clinical Data: COPD/asthma Comparison: PA and lateral chest, 01/23/2021 Findings: No nodules, masses or effusions are seen. The heart is normal. The pulmonary vascularity is not increased. No pneumonia or pneumothorax is seen. The diaphragms are flattened. There are monitor leads on the chest wall. XR/XR chest 1V portable [id number] Impression: Hyperinflation.
--- NOTE | 2021-02-23 20:33 | ECG_ITS ---
[facility] Test Date: 2021-02-23 Pat Name: Radha Doe Department: Room: Gender: Female [employer]: : 1970 Requested By: Clifton James Order Number: [id number] Santana MD: Sharonda Shirley M.D. Measurements Intervals [place] Rate: 120 P: 85 [place]: 187 QRS: 84 QRSD: 74 T: 83 QT: 339 QTc: 480 Interpretive Statements SINUS TACHYCARDIA LOW QRS VOLTAGE IN PRECORDIAL LEADS [QRS DEFLECTION < 1.0 mV IN CHEST LEADS] NONSPECIFIC T-WAVE ABNORMALITY ABNORMAL RHYTHM ECG No previous ECG available for comparison Electronically Signed On 02-24-2021 17:23:09 CDT by Sharonda Shirley M.D. [id number]
[2021-02-23 20:45] LABS: Basophils % 0.1 %; Eosinophils % 0.1 %; Hematocrit 45.6 % (37.0-47.0); Lymphocytes % 6.9 %; Mean Corpuscular HGB Conc 32.9 g/dL (30.0-36.0); Mean Corpuscular Hemoglobin 32.1 pg (28.0-34.0); Mean Corpuscular Volume 97.6 fL (81-99); Mean Platelet Volume 9.7 fL (7.4-10.4); Monocytes # 0.2 10^3/uL (0.2-0.9); Monocytes % 1.1 %; Neutrophils # 12.88 10^3/uL (1.8-7.7); Neutrophils % 91.2 %; Nucleated Red Blood Cells % 0 %; Platelet Count 460 10^3/cmm (130-400); Red Blood Count 4.67 10^6/uL (4.1-5.3); White Blood Count 14.1 10^3/uL (4.0-10.0)
--- NOTE | 2021-02-23 20:45 | W.ED.SOB ---
HPI - SOB/Dyspnea General: Chief Complaint: Shortness of Breath/Dyspnea Stated Complaint: SOB Time Seen by Provider: 02/23/21 20:40 History of Present Illness: HPI Narrative: The patient is a 52-year-old female with past medical history COPD, asthma, and seasonal allergies who comes to the ER complaining of increased shortness of breath that started this morning. She says it is just now beginning to be springtime which worsens her symptoms and she called her primary care physician who gave her 20 mg of prednisone to start taking today which she did however it has not yet worked. She got short of breath and called EMS who noted her to be satting 84% on room air. She was placed on 6 L and is satting 94% on 6 L. She has severely reduced breath sounds bilaterally with wheezes. MD elicited complaint: shortness of breath and asthma attack Pertinent past history: COPD and asthma Associated symptoms: Deny abdominal pain, chest pain, dizziness, extremity pain, orthopnea, palpitations or polyuria Review of Systems General: Reports: 10 or more systems reviewed and unremarkable except in HPI and below Const: Denies: fatigue Eyes: Denies: change in vision, blurry vision or eye redness ENMT: Denies: throat pain, swelling of lips/tongue, ear or mastoid pain or nasal congestion Card: Denies: chest pain, palpitations, irregular heart rhythm, edema, dyspnea on exertion or orthopnea Resp: Reports: dyspnea, non-productive cough and wheezing; Denies: productive cough GI: Denies: abdominal pain, diarrhea or GI cramping : Denies: flank pain, difficulty voiding, urinary frequency or urinary urgency Musc: Denies: neck pain, back pain, extremity pain, joint pain, joint redness, limited range of motion or muscle weakness Skin/Breast: Denies: rash, pruritus, erythema, skin pain or skin tenderness Neuro: Denies: headache(s), numbness in extremities, weakness in extremities, sensory changes, difficulty walking, dizziness, confusion or Slurred speech present Psych: Denies: anxiety or depression Endo: Denies: polyuria All/Imm: Denies: urticaria, throat swelling or tongue swelling PFSH ED PFSH: Medical History COPD (chronic obstructive pulmonary disease) Diverticular disease of intestine with perforation and abscess Surgical History H/O tubal ligation H/O: hysterectomy S/P excision of ganglion cyst Social History Smoking and tobacco status: former smoker Female Reproductive History: Date of last menstrual period: 11/26/14 Physical Exam Const: COMMON NORMALS: average body habitus, patient oriented x3, no limitations, alert and well nourished GENERAL APPEARANCE: cooperative, comfortable and well developed ORIENTATION/CONSCIOUSNESS: Yes awake, Yes oriented to person, Yes oriented to place and Yes oriented to time HENMT: COMMON NORMALS: normocephalic, external ears normal and Normal external nose present HEAD & SCALP: normal to inspection and normocephalic NOSE: Normal external nose present EXTERNAL EAR: Yes external ears normal MOUTH: Normal oral and palatal mucosa present THROAT: posterior oropharynx normal Eye: COMMON NORMALS: Equal, round and reactive pupils present and EOMs intact bilaterally GENERAL EYE: appearance normal, both eyes and all related structures PUPIL: Yes Equal, round and reactive pupils present Neck/C-Spine: COMMON NORMALS: full ROM, no lymphadenopathy, no meningeal signs and no JVD GENERAL: Yes normal visual inspection Lymph: LYMPHATIC: no lymphadenopathy noted Chest: COMMONS NORMALS: normal inspection of the chest and normal palpation of entire chest wall Resp: EFFORT & INSPECTION: Yes able to speak in complete sentences, Yes tachypneic, Yes respiratory distress (moderate. ), Yes pursed lip breathing, Yes retractions, Yes uses accessory muscles and Yes tripod positioning AUSCULTATION: wheezes and diminished lung sounds (severely reduced breath sounds bilaterally) Cardio: COMMON NORMALS: no JVD, regular rate, regular rhythm, S1 normal heart sound present, S2 normal heart sound present and Peripheral pulses 2+ throughout RATE: regular rate RHYTHM: regular rhythm HEART SOUNDS: S1 normal heart sound present and S2 normal heart sound present PERIPHERAL PULSES: Peripheral pulses 2+ throughout GI: COMMON NORMALS: Normal to inspection, nondistended, normoactive bowel sounds present, Soft to palpation, non-tender and no masses INSPECTION: Yes normal to inspection PALPATION: Yes Soft to palpation : COMMON NORMALS: Yes no CVA tenderness BLADDER/KIDNEY EXAM: Yes no CVA tenderness Back/Pelvis: COMMON NORMALS: no CVA tenderness, thoracic and lumbar spine normal to inspection, no thoracic nor lumbar tenderness and thoraco-lumbar ROM normal Extremity: COMMON NORMALS: normal to inspection, full ROM, capillary refill normal, no joint enlargement and no pedal edema GENERAL: Yes normal exam except as noted Neuro: COMMON NORMALS: patient oriented x3, CN's II-XII intact bilaterally, moves all extremities, no focal motor deficits, no sensory deficits noted and gait normal SENSORIUM/ORIENTATION: Yes alert, Yes oriented to person, Yes oriented to place and Yes oriented to time MENINGEAL SIGNS: Yes no meningeal signs Psych: COMMON NORMALS: mental status grossly normal, Normal thought process present, cooperative, normal affect and speech normal ATTITUDE: Yes calm SPEECH: Yes normal speech THOUGHT PROCESS: Normal thought process present Skin: COMMON NORMALS: no rashes or lesions noted GENERAL SKIN EXAM: no rashes or lesions noted Course Vital Signs: Vital signs: Vital Signs Temperature 97.9 F 02/23/21 20:27 Pulse Rate 118 H 02/23/21 22:34 Respiratory Rate 22 H 02/23/21 22:34 Blood Pressure 112/94 02/23/21 22:34 Pulse Oximetry 98 02/23/21 22:34 MDM - SOB/Dyspnea MDM Narrative: Medical decision making narrative: The patient has COPD, asthma, and likely seasonal allergies have triggered this recent exacerbation. She was in moderate respiratory distress and required BiPAP with slight hypercarbia on ABG. She became comfortable on BiPAP and was stable for admission to the ICU. She was given Solu-Medrol, and albuterol to help with her symptoms. Lab Data: Labs: Lab Results 02/23/21 02/23/21 02/23/21 Range/Units 20:15 20:15 20:15 WBC 14.1 H (4.0-10.0) 10^3/ uL RBC 4.67 (4.1-5.3) 10^6/u L Hgb 15.0 (11.5-15.3) g/dL Hct 45.6 (37.0-47.0) % MCV 97.6 (81-99) fL MCH 32.1 (28.0-34.0) pg MCHC 32.9 (30.0-36.0) g/dL RDW 12.0 L (12.1-15.1) % Plt Count 460 H (130-400) 10^3/c mm MPV 9.7 (7.4-10.4) fL Neut % (Auto) 91.2 % Lymph % (Auto) 6.9 % [place] % (Auto) 1.1 % Eos % (Auto) 0.1 % Baso % (Auto) 0.1 % Neut # (Auto) 12.88 H (1.8-7.7) 10^3/u L Lymph # (Auto) 1.0 (0.8-4.8) 10^3/u L [place] # (Auto) 0.2 (0.2-0.9) 10^3/u L Eos # (Auto) 0.0 (0.0-0.8) 10^3/u L Baso # (Auto) 0.0 (0.0-0.1) 10^3/u L Nucleated RBC % (a uto) 0 % Nucleated RBCs # 0.0 /100WBC D-Dimer (0-0.59) ug/mIFE U Specimen Type Sample Site ABG pH (7.35-7.45) ABG pCO2 (35-45) mmHg ABG pO2 (80.0-100.0) mmH g ABG HCO3 (22-26) mmol/L ABG Base Excess (-2.0-2.0) mmol/ L Prosper Test Hematocrit (37-47) % Hgb O2 Saturation (95-100) % Carboxyhemoglobin (0.4-20.1) %THgb Methemoglobin (0.4-1.5) % Total Hemoglobin (12-16) g/dL O2 Delivery Device O2 Liters/Min % Technical Lead ID Sodium 144 (136-145) mmol/L Potassium 4.0 (3.5-5.1) mmol/L Chloride 104 (98-107) mmol/L Carbon Dioxide 27 (22-29) mmol/L Anion Gap 17.0 (5-19) BUN 6 (6-20) mg/dL Creatinine 0.6 (0.5-0.9) mg/dL GFR Calculation 105.8 (90-130) mL/min Glucose 146 H (65-115) mg/dL Calculated Osmolal ity 298 H (285-295) mOsm/k g Calcium 10.1 (8.5-10.5) mg/dL Total Bilirubin 0.2 (0.15-1.2) mg/dL AST 13 (0-32) U/L ALT 20 (0-33) U/L Alkaline Phosphata se 89 (35-105) IU/L Troponin T Baselin e 7 (0-10) ng/L Troponin T 120 Min [place] (0-10) ng/L Delta Troponin T (0-10) ABS# Total Protein 7.9 (6.6-8.7) g/dL Albumin 4.5 (3.5-5.2) g/dL Globulin 3.4 (1.3-4.6) g/dL SARS-CoV-2 Ag (Rap id) (Negative) 02/23/21 02/23/21 02/23/21 Range/Units 20:15 20:35 20:48 WBC (4.0-10.0) 10^3/ uL RBC (4.1-5.3) 10^6/u L Hgb (11.5-15.3) g/dL Hct (37.0-47.0) % MCV (81-99) fL MCH (28.0-34.0) pg MCHC (30.0-36.0) g/dL RDW (12.1-15.1) % Plt Count (130-400) 10^3/c mm MPV (7.4-10.4) fL Neut % (Auto) % Lymph % (Auto) % [place] % (Auto) % Eos % (Auto) % Baso % (Auto) % Neut # (Auto) (1.8-7.7) 10^3/u L Lymph # (Auto) (0.8-4.8) 10^3/u L [place] # (Auto) (0.2-0.9) 10^3/u L Eos # (Auto) (0.0-0.8) 10^3/u L Baso # (Auto) (0.0-0.1) 10^3/u L Nucleated RBC % (a uto) % Nucleated RBCs # /100WBC D-Dimer 0.71 H (0-0.59) ug/mIFE U Specimen Type Arterial Sample Site Brachial, right ABG pH 7.34 L (7.35-7.45) ABG pCO2 52.8 H (35-45) mmHg ABG pO2 55.9 L (80.0-100.0) mmH g ABG HCO3 28.3 H (22-26) mmol/L ABG Base Excess 1.4 (-2.0-2.0) mmol/ L Prosper Test N/a Hematocrit 45.7 (37-47) % Hgb O2 Saturation 87.0 L (95-100) % Carboxyhemoglobin 1.5 (0.4-20.1) %THgb Methemoglobin 0.3 L (0.4-1.5) % Total Hemoglobin 14.9 (12-16) g/dL O2 Delivery Device Nc O2 Liters/Min 5.0 % Technical Lead ID Harkr Sodium (136-145) mmol/L Potassium (3.5-5.1) mmol/L Chloride (98-107) mmol/L Carbon Dioxide (22-29) mmol/L Anion Gap (5-19) BUN (6-20) mg/dL Creatinine (0.5-0.9) mg/dL GFR Calculation (90-130) mL/min Glucose (65-115) mg/dL Calculated Osmolal ity (285-295) mOsm/k g Calcium (8.5-10.5) mg/dL Total Bilirubin (0.15-1.2) mg/dL AST (0-32) U/L ALT (0-33) U/L Alkaline Phosphata se (35-105) IU/L Troponin T Baselin e (0-10) ng/L Troponin T 120 Min [place] (0-10) ng/L Delta Troponin T (0-10) ABS# Total Protein (6.6-8.7) g/dL Albumin (3.5-5.2) g/dL Globulin (1.3-4.6) g/dL SARS-CoV-2 Ag (Rap id) Negative (Negative) 02/23/21 Range/Units 22:10 WBC (4.0-10.0) 10^3/ uL RBC (4.1-5.3) 10^6/u L Hgb (11.5-15.3) g/dL Hct (37.0-47.0) % MCV (81-99) fL MCH (28.0-34.0) pg MCHC (30.0-36.0) g/dL RDW (12.1-15.1) % Plt Count (130-400) 10^3/c mm MPV (7.4-10.4) fL Neut % (Auto) % Lymph % (Auto) % [place] % (Auto) % Eos % (Auto) % Baso % (Auto) % Neut # (Auto) (1.8-7.7) 10^3/u L Lymph # (Auto) (0.8-4.8) 10^3/u L [place] # (Auto) (0.2-0.9) 10^3/u L Eos # (Auto) (0.0-0.8) 10^3/u L Baso # (Auto) (0.0-0.1) 10^3/u L Nucleated RBC % (a uto) % Nucleated RBCs # /100WBC D-Dimer (0-0.59) ug/mIFE U Specimen Type Sample Site ABG pH (7.35-7.45) ABG pCO2 (35-45) mmHg ABG pO2 (80.0-100.0) mmH g ABG HCO3 (22-26) mmol/L ABG Base Excess (-2.0-2.0) mmol/ L Prosper Test Hematocrit (37-47) % Hgb O2 Saturation (95-100) % Carboxyhemoglobin (0.4-20.1) %THgb Methemoglobin (0.4-1.5) % Total Hemoglobin (12-16) g/dL O2 Delivery Device O2 Liters/Min % Technical Lead ID Sodium (136-145) mmol/L Potassium (3.5-5.1) mmol/L Chloride (98-107) mmol/L Carbon Dioxide (22-29) mmol/L Anion Gap (5-19) BUN (6-20) mg/dL Creatinine (0.5-0.9) mg/dL GFR Calculation (90-130) mL/min Glucose (65-115) mg/dL Calculated Osmolal ity (285-295) mOsm/k g Calcium (8.5-10.5) mg/dL Total Bilirubin (0.15-1.2) mg/dL AST (0-32) U/L ALT (0-33) U/L Alkaline Phosphata se (35-105) IU/L Troponin T Baselin e (0-10) ng/L Troponin T 120 Min [place] 8.84 (0-10) ng/L Delta Troponin T 1.84 (0-10) ABS# Total Protein (6.6-8.7) g/dL Albumin (3.5-5.2) g/dL Globulin (1.3-4.6) g/dL SARS-CoV-2 Ag (Rap id) (Negative) Discharge Plan Discharge Patient Disposition: Admitted As Inpatient Clinical Impression: Acute exacerbation of chronic obstructive pulmonary disease (COPD) Condition: Stable Coding Level of Care Code ED Jewel Bearing Facer for Nayeli Dawkins
[2021-02-23 20:46] LABS: ABG PCO2 52.8 mmHg (35-45); ABG PH Result 7.34 (7.35-7.45); Arterial Blood Gas Hematocrit 45.7 % (37-47); Base Excess ABG 1.4 mmol/L (-2.0-2.0); Blood Gas Operator Identificat HARKR; Blood Gas Sample Site Brachial, right; Blood Gas Sample Type Arterial; Carboxyhemoglobin 1.5 %THgb (0.4-20.1); HCO3 ABG 28.3 mmol/L (22-26); Methemoglobin 0.3 % (0.4-1.5); Oxygen Device NC; PO2 ABG 55.9 mmHg (80.0-100.0); Total Hemoglobin 14.9 g/dL (12-16)
[2021-02-23] MEDS: levofloxacin-dextrose 5 % 750 MG/150 ML PREMIX 100 MG IV (20:52)
[2021-02-23 21:10] LABS: SARS Covid-2 Antigen Negative (Negative)
[2021-02-23 21:12] LABS: Alanine Aminotransferase 20 U/L (0-33); Albumin Level 4.5 g/dL (3.5-5.2); Alkaline Phosphatase 89 IU/L (35-105); Aspartate Amino Transferase 13 U/L (0-32); Blood Urea Nitrogen 6 mg/dL (6-20); Calcium 10.1 mg/dL (8.5-10.5); Carbon Dioxide 27 mmol/L (22-29); Chloride 104 mmol/L (98-107); Globulin 3.4 g/dL (1.3-4.6); Glomerular Filtration Rate 105.8 mL/min (90-130); Glucose 146 mg/dL (65-115); Osmolality Calculated 298 mOsm/kg (285-295); Sodium 144 mmol/L (136-145); Total Bilirubin 0.2 mg/dL (0.15-1.2); Total Protein 7.9 g/dL (6.6-8.7)
[2021-02-23 21:13] LABS: Troponin(5th) Baseline 7 ng/L (0-10)
--- NOTE | 2021-02-23 22:22 | PC.NURSE ---
EKG done at 221 and shown to ER doctor
--- NOTE | 2021-02-23 22:23 | PC.NURSE ---
EKG taken and given to Dr. James
--- NOTE | 2021-02-23 22:24 | P.HP_ITS ---
Providers/Chief Complaint Primary Care Provider: Violeta Tavarez MD Chief Complaint: SOB History of Present Illness Radha Doe is a 50 year old female who has history of seasonal allergies, COPD, nonoxygen dependent, active smoker presented today with chief complaint of shortness of breath. Patient is stating that for last few days she has been struggling with seasonal allergies and today when she woke up she started experiencing shortness of breath, she is also bringing up white sputum with cough, she has not noticed any fever, nausea, vomiting, chest pain, orthopnea, PND or lower extremity swelling. She is trying to cut down on her smoking currently smoking few cigarettes a day. She went to her PCP who prescribed prednisone 20 mg. Her symptoms were not getting better hence she decided to come to the hospital for further evaluation Diagnostics in the ER revealed COPD exacerbation with acute hypoxic respiratory acidosis, she was put on BiPAP setting 12/6 FiO2 40% with good tidal volume, at the time my evaluation she was drinking water, off BiPAP, she quickly desaturated to 88% on room air, she is not moving much air and has active wheezing, no active cyanosis Chest x-ray shows consolidative changes in right lower lobe, bilateral interstitial markings, groundglass opacity EKG shows sinus tachycardia currently saturating well on FiO2 40%, she meets sepsis criteria Review of Systems Const: Reports: chills, body aches and fatigue Eyes: Denies: change in vision ENMT: Denies: throat pain Card: Denies: chest pain Resp: Reports: dyspnea and productive cough GI: Denies: abdominal pain : Denies: flank pain Musc: Denies: neck pain Skin/Breast: Denies: rash Neuro: Denies: headache(s) Psych: Denies: anxiety Endo: Denies: polyuria Jesus/Lymph: Denies: easy bruising All/Imm: Denies: urticaria Medications/Allergies Home Medications Medication Instructions Recorded Confirmed Last Taken Type albuterol sulfate 2.5 mg INHALATION Q4H PRN 30 Days 02/03/21 02/23/21 Unknown Rx #540 ml albuterol sulfate 90 mcg/actuation 2 puff INHALATION Q6H PRN #8.5 g 02/03/21 02/23/21 02/23/21 Rx aerosol inhaler fluticasone 250 mcg-salmeterol 50 1 inh INHALATION Q12H #60 ea 02/03/21 02/23/21 02/23/21 Rx mcg/dose blistr powdr for inhalation prednisone 20 mg tablet 20 mg PO DAILY #30 tab 02/03/21 02/23/21 02/23/21 Rx ibuprofen 800 mg tablet 800 mg PO TID PRN #90 tab 02/07/21 02/23/21 Unknown Rx Allergies Allergy/AdvReac Type Severity Reaction Status Date / Time No Known Allergies Allergy Verified 02/23/21 20:32 PFSH Acute PFSH: Medical History COPD (chronic obstructive pulmonary disease) Diverticular disease of intestine with perforation and abscess Surgical History H/O tubal ligation H/O: hysterectomy S/P excision of ganglion cyst Family History (Updated 02/23/21 @ 23:18 by Dasha Mckeon MD) Father Diabetes Mother Diabetes Social History (Updated 02/23/21 @ 23:18 by Dasha Mckeon MD) Smoking and tobacco status: current every day smoker cigarettes [ Other cigarette details: She smokes 4 to 5 cigarettes a day, heavy smoker in the past ] Alcohol intake: never Substance/Drug Use: never Housing: House Previous occupational history: Worked at [employer] Female Reproductive History: Date of last menstrual period: 11/26/14 Vitals/I&O/Wt Last Vital Signs Temp 97.9 F 02/23/21 20:27 Pulse 112 H 02/23/21 22:21 Resp 16 02/23/21 22:19 BP 125/80 02/23/21 22:19 Pulse Ox 99 02/23/21 22:19 Weight last 48 hrs Weight 70.307 kg Physical Exam Narrative: EXAM NARRATIVE: Middle-age female who appears more than stated age Does not look fluid overloaded or dehydrated No cachexia She was drinking water when entered the room She desaturated quickly on room air, she was put on BiPAP right away which improved her oxygenation S1, S2 sinus tachycardia no signs of heart failure or murmur Abdomen soft nontender EOMI, PERRLA No neurological deficit Appropriate mood and affect She seems a bit anxious Bilateral diminished breath sounds with active expiratory wheezing, 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 of 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 however she is tachypneic in 20s Lower extremity no swelling Data : 02/23/21 20:15 02/23/21 20:15 Micro: Microbiology 02/23/21 22:14 Blood Culture - Preliminary Blood SPECIMEN COLLECTED 02/23/21 22:10 Blood Culture - Preliminary Blood SPECIMEN COLLECTED A&P Assessment and plan (1) Acute exacerbation of chronic obstructive pulmonary disease (COPD): Status: Acute (2) Acute on chronic respiratory failure with hypoxia and hypercapnia: Status: Acute (3) Community acquired pneumonia: Status: Acute (4) Sepsis: Status: Acute Additional A&P Information Sepsis secondary to community-acquired pneumonia Criteria met with tachypnea, tachycardia, leukocytosis Right lower lobe infiltrate seen on chest x-ray, Start her on ceftriaxone and azithromycin Systemic steroids to reduce inflammation Requested procalcitonin level And urine antigen along blood cultures Acute COPD exacerbation Acute hypoxic hypercarbic respiratory failure 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 active smoker does not use oxygen at home, she will need outpatient pulmonary follow-up Exacerbation secondary to seasonal allergies and community-acquired pneumonia Rule out PE requested CTA Full code Cardiac diet DVT prophylaxis Lovenox Will need outpatient pulmonary follow-up and home O2 evaluation Attestations Medical Necessity Statement*: Anticipating stay in the hospital cross more t tompkins to protect for sepsis secondary to pneumonia rule out PE currently on IV antibiotics, requiring BiPAP for acute hypoxic hypercarbic respiratory failure Time Spent in Patient Care: (>than 50% of time spent in counselling and/or direct pt care on unit) . 40mins Coding Level of Care Code Acute Hitcher for Chg Fwd Diagnoses Acute exacerbation of chronic obstructive pulmonary disease (COPD) J44.1 Acute on chronic respiratory failure with hypoxia and hypercapnia J96.21; J96.22 Community acquired pneumonia J18.9 Sepsis A41.9
--- NOTE | 2021-02-23 22:33 | ECG_ITS ---
[facility] Test Date: 2021-02-23 Pat Name: Radha Doe Department: Room: Gender: Female Fowl Blood Tester: : 1970 Requested By: Clifton James Order Number: [id number] Santana MD: Sharonda Shirley M.D. Measurements Intervals [place] Rate: 112 P: 85 KS: 172 QRS: 83 QRSD: 72 T: 79 QT: 291 QTc: 398 Interpretive Statements SINUS TACHYCARDIA LOW QRS VOLTAGE IN PRECORDIAL LEADS [QRS DEFLECTION < 1.0 mV IN CHEST LEADS] NONSPECIFIC T-WAVE ABNORMALITY ABNORMAL RHYTHM ECG Compared to ECG 02/23/2021 20:36:46 No significant changes Electronically Signed On 02-24-2021 17:26:55 CDT by Sharonda Shirley M.D. [email or web address]
[2021-02-23 22:36] LABS: Troponin 5 2HR 8.84 ng/L (0-10); Troponin 5 2HR Delta 1.84 ABS# (0-10)
[2021-02-23 22:46] LABS: D Dimer 0.71 ug/mIFEU (0-0.59)
[2021-02-23 22:56] LABS: Procalcitonin 0.06 ng/mL (0-0.5)
--- NOTE | 2021-02-23 23:12 | CTR_ITS ---
PROCEDURE INFORMATION: Exam: CT Angiography Chest With Contrast Exam date and time: 02/23/2021 11:15 PM Age: 50 years old Clinical indication: Abnormal findings; Abnormal diagnostic tests; Elevated d-dimer; Shortness of breath; Patient HX: Copd exacerbation. Elevated d dimer. ; Additional info: Hypoxia and copd exacerbation TECHNIQUE: Imaging protocol: Computed tomographic angiography of the chest with contrast. 3D rendering (Not supervised by radiologist): MIP and/or 3D reconstructed images were created by the technologist. Total images: 905 Radiation optimization: All CT scans at this facility use at least one of these dose optimization techniques: automated exposure control; mA and/or kV adjustment per patient size (includes targeted exams where dose is matched to clinical indication); or iterative reconstruction. Contrast material: OMNI 350; Contrast volume: 75 ml; Contrast route: INTRAVENOUS (IV); COMPARISON: CR XR chest 1V portable [id number] 02/23/2021 9:19 PM RADIATION DOSE METRICS: Total DLP (mGy-cm): 542.04 FINDINGS: Pulmonary arteries: No visible evidence of pulmonary embolism/pulmonary arterial thrombus. Aorta: The thoracic aorta is nonaneurysmal. No visible intimal flap or dissection. Lungs: Advanced and marked centrilobular emphysema. No visible active interstitial or alveolar airspace disease. Pleural spaces: Unremarkable. No pneumothorax. No pleural effusion. Heart: No cardiomegaly. No visible pericardial effusion. No visible significant coronary artery disease. Lymph nodes: No visible active mediastinal or hilar lymphadenopathy. Gallbladder and bile ducts: Cholelithiasis. Solitary gallstone within the field of view measuring 16 mm. Bones/joints: No visible active or acute osseous pathology. Soft tissues: Unremarkable. CT/CT angio chest PE protcl [id number] IMPRESSION: 1. No visible evidence of pulmonary embolism/pulmonary arterial thrombus. 2. Cholelithiasis. 3. Markedly advanced centrilobular emphysema. Radiation Dose CTDIVOL = (mGy): DLP = 542.04 (mGy-cm)
[2021-02-23] MEDS: iohexol 350 mg/mL 100 mL Btl IV (23:27)
[2021-02-23] MEDS: enoxaparin 40 mg/0.4 mL Syringe SUBCUT (23:48)
[2021-02-24] VITALS (158 sets, daily range): BP systolic 81–190; BP diastolic 48–134; PULSE 70–130; RESP 13–60; TEMP 36.3–36.7; O2SAT 83–889
[2021-02-24 01:56] LABS: Add Urine Microscopic? YES; Bacteria Urine 3+ /hpf; Bilirubin Urine Neg (Negative); Blood Urine 3+ (Negative); Glucose Urine UA Norm (Normal); Hyaline Casts Urine 0-4 /lpf; Ketones Urine Negative (Negative); Leukocyte Esterase Urine Trace (Negative); Mucus Urine 1+ /hpf; Nitrate Urine Negative (Negative); Protein Urine Neg (Negative); Squamous Epithelial Cell Urine 15-25 /hpf (0-5); Urine Appearance Clear (CLEAR); Urine Color Yellow (Yellow); Urobilinogen Urine Norm (Negative); WBC Urine 15-25 /hpf (0-5); pH Urine 5 (5-7)
[2021-02-24] MEDS: ipratropium-albuterol 3 mL Neb INHALATION ×6 (03:24→23:36)
[2021-02-24 04:16] LABS: Basophils % 0.1 %; Hematocrit 44.4 % (37.0-47.0); Hemoglobin 14.6 g/dL (11.5-15.3); Lymphocytes % 6.5 %; Mean Corpuscular HGB Conc 32.9 g/dL (30.0-36.0); Mean Corpuscular Hemoglobin 32.4 pg (28.0-34.0); Mean Corpuscular Volume 98.7 fL (81-99); Mean Platelet Volume 9.5 fL (7.4-10.4); Monocytes # 0.1 10^3/uL (0.2-0.9); Monocytes % 0.5 %; Neutrophils # 14.12 10^3/uL (1.8-7.7); Neutrophils % 92.2 %; Nucleated Red Blood Cells % 0 %; Platelet Count 426 10^3/cmm (130-400); Red Cell Distribution Width 12.2 % (12.1-15.1); White Blood Count 15.3 10^3/uL (4.0-10.0)
[2021-02-24 04:32] LABS: Anion Gap 12.3 (5-19); Blood Urea Nitrogen 8 mg/dL (6-20); Calcium 10.4 mg/dL (8.5-10.5); Carbon Dioxide 30 mmol/L (22-29); Chloride 102 mmol/L (98-107); Creatinine Clr Calc Pharmacy 107.0823; Glomerular Filtration Rate 105.8 mL/min (90-130); Glucose 137 mg/dL (65-115); Osmolality Calculated 290 mOsm/kg (285-295); Potassium 4.3 mmol/L (3.5-5.1); Sodium 140 mmol/L (136-145)
[2021-02-24 05:39] LABS: ABG PH Result 7.27 (7.35-7.45); Arterial Blood Gas Hematocrit 44.8 % (37-47); Base Excess ABG 2.3 mmol/L (-2.0-2.0); Blood Gas Operator Identificat JB; Blood Gas Sample Site Brachial, right; Blood Gas Sample Type Arterial; HCO3 ABG 31.5 mmol/L (22-26); Oxygen Device BIPAP; PO2 ABG 79.2 mmHg (80.0-100.0)
[2021-02-24 05:40] LABS: ABG PCO2 69.1 mmHg (35-45)
[2021-02-24] MEDS: LORazepam 2 mg/mL INJ 1 mL IM ×2 (08:17→11:56)
[2021-02-24] MEDS: azithromycin 250 mg Tablet 500 MG PO (08:18)
[2021-02-24] MEDS: cefTRIAXone 1,000 MG in sodium chloride 0.9% (plus) 50 ML 100 MG IV (09:20)
--- NOTE | 2021-02-24 09:20 | PC.NURSE ---
Second vial of rocephin was removed from the pyxis because the first one was broken/ cracked et was not able to be administered.
--- NOTE | 2021-02-24 10:12 | PM.PN ---
Subjective Subjective: Interval history: Denies pain. Was anxious earlier this morning but received 2 mg Ativan IM, currently resting. Oriented x3. States BiPAP is helping. Vitals/I&O/Wt Last Vital Signs Temp 97.3 F L 02/24/21 08:00 Pulse 114 H 02/24/21 09:08 Resp 23 H 02/24/21 09:00 BP 170/119 02/24/21 08:00 Pulse Ox 88 L 02/24/21 09:03 02/23/21 02/24/21 02/24/21 22:59 06:59 14:59 Intake Total 150 / 150 Output Total 325 / 325 Balance 150 / 150 -325 / -175 Weight last 48 hrs Weight 72.575 kg Weight 70.307 kg Physical Exam Const: COMMON NORMALS: no acute distress and patient oriented x3 OTHER: Sleeping. HENMT: COMMON NORMALS: oropharynx normal Neck/C-Spine: COMMON NORMALS: no JVD Resp: COMMON NORMALS: normal respiratory effort AUSCULTATION: wheezes and diminished lung sounds Cardio: COMMON NORMALS: no JVD, regular rhythm, S1 normal heart sound present, S2 normal heart sound present and No murmurs present (Cardio) RHYTHM: regular rhythm HEART SOUNDS: S1 normal heart sound present and S2 normal heart sound present GI: COMMON NORMALS: Normal to inspection, nondistended, normoactive bowel sounds present, Soft to palpation and non-tender PALPATION: Yes Soft to palpation Extremity: COMMON NORMALS: no joint enlargement and no pedal edema Neuro: COMMON NORMALS: patient oriented x3 and moves all extremities Skin: COMMON NORMALS: no rashes or lesions noted GENERAL SKIN EXAM: no rashes or lesions noted Data : 02/24/21 03:45 02/24/21 03:45 Micro: Microbiology 02/23/21 01:35 Legionella Urinary Antigen - Final Urine,Clean Catch Bacterial Antigens - Final 02/23/21 22:14 Blood Culture - Preliminary Blood SPECIMEN COLLECTED 02/23/21 22:10 Blood Culture - Preliminary Blood SPECIMEN COLLECTED A&P Assessment and plan (1) Acute exacerbation of chronic obstructive pulmonary disease (COPD): Severe exacerbation of COPD. Worsening. Worsening on ABG this morning, 7.2 /. She was very anxious earlier. Appears was not working with BiPAP well. Received 2 mg IM Ativan this morning for anxiety. Currently resting. Change Solu-Medrol to 60 mg every 6. Pulmicort. Add scheduled nebulizations every 4 hours and continue as needed. Continue BiPAP. Avoid hyperoxia. Monitor. Discussed with her may require intubation if continues to worsen or getting tired. She verbalized understanding agreement. Tried several times to contact her mother for an update on the phone number listed, but unable to connect. Status: Acute (2) Acute on chronic respiratory failure with hypoxia and hypercapnia: Status: Acute (3) Community acquired pneumonia: No pneumonia on CTA, however, clinically in respiratory failure, with leukocytosis, sinus tachycardia. Noted sepsis on admission. Continue antibiotics. Follow blood cultures. Requesting sputum culture. Status: Acute (4) Sepsis: Status: Acute (5) Smoking addiction: Continue to encourage cessation. Status: Acute Additional A&P Information Full code Cardiac diet DVT prophylaxis Lovenox Will need outpatient pulmonary follow-up and home O2 evaluation p Attestations Medical Necessity Statement*: Continue admission for assessment of management of severe exacerbation of COPD, with worsening, BiPAP support, escalation of therapy. Critical Care Time: In addition to noncritical issues 35 minutes critical care time spent on assessment and management of life-threatening conditions of respiratory failure, severe COPD exacerbation requiring escalation of therapy. Discussed with nursing staff, respiratory therapy and patient in detail. Coding Level of Care Code Acute Rn Ur[facility] for Nayeli Dawkins Diagnoses Acute exacerbation of chronic obstructive pulmonary disease (COPD) J44.1 Acute on chronic respiratory failure with hypoxia and hypercapnia J96.21; J96.22 Community acquired pneumonia J18.9 Sepsis A41.9 Smoking addiction F17.200
--- NOTE | 2021-02-24 11:33 | PC.NURSE ---
Patient's respiratory assessment remains unchanged with very little air movement et wheexing, worse on the left. Notified physician. New orders noted et implemented. Will continue to monitor.
[2021-02-24 12:02] LABS: ABG PH Result 7.26 (7.35-7.45); Alveolar-Arterial Oxygen Gradi 11.7 mmHg (5-10); Arterial Blood Gas Hematocrit 44.4 % (37-47); Base Excess ABG 3.9 mmol/L (-2.0-2.0); Blood Gas Allen Test Pos; Blood Gas Operator Identificat GD; Blood Gas Sample Site Radial, right; Blood Gas Sample Type Arterial; Carboxyhemoglobin 0.5 %THgb (0.4-20.1); HCO3 ABG 33.8 mmol/L (22-26); Ionized Calcium Level - ABG 1.4 mmol/L (1.1-1.4); Methemoglobin 0.5 % (0.4-1.5); Oxygen Device BIPAP; Oxygen Saturation ABG 98.1; Potassium Level - ABG 4.6 mmol/L (3.5-5.0); Total Hemoglobin 14.5 g/dL (12-16)
[2021-02-24 12:05] LABS: ABG PCO2 75.8 mmHg (35-45)
--- NOTE | 2021-02-24 12:15 | PC.CHAP ---
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 [] Patient/Family/Request visit [] Outpatient visit [] Follow-up visit [] Physician referral [] Code/Alert [x] Routine visit [] Staff referral [] Actively dying [] Patient sleeping [] Family support [] [] Out of room [] Palliative care [] [] Receiving care in room [] Pre-surgical visit [] Trauma [] Long length of stay [x] ICU visit [x] Other: ventilator Relational/Emotional Strength [] Patient feels connected with others/family/visitors/staff [] Distress [] Loneliness/isolation [] Abandonment Spirituality of Patient [] Person of Sia [] Attends [facility]itan of their Sia [] Believes in Prayer [] Reads Bible or Bahai materials [] There are Spiritual issues to be addressed Extension Course Counselor Interventions [x] Prayer [] Active listening [] Non-anxious presence [] Spiritual/emotional support [] Crisis/trauma care [] Spiritual counseling [] Bereavement support [] Provided bereavement packet [] Provided Bible/devotional materials [] Provided toy/stuffed animal, coloring book to patient or family member [] Provided Communion [] Anointing/[place] [] Salvation [x] Completed spiritual assessment [] Other: Impact on Illness or Injury [] Angry [] Fearful [] Anxious [] Often cries [] Exhaustion [] Unable to work [] Unable to attend scientology [] Unable to walk/stand [] Unable to read [] Unable to drive [] Unable to eat/drink [] Unable to sleep [] Unable to be with family [] Patient intubated [] Other: Summary Time spent with patient
--- NOTE | 2021-02-24 14:15 | XR_ITS ---
WS: [id number] Portable AP upright chest, 02/24/2021 Clinical Data: intub Comparison: Portable chest, 02/23/2021 Findings: The endotracheal tube is above the marco a. No pneumothorax is noted. Monitor leads are on t he chest wall. XR/XR chest 1V portable [id number] Impression: Satisfactory insertion of endotracheal tube.
--- NOTE | 2021-02-24 14:17 | P.PN_ITS ---
Subjective Subjective: Interval history: Despite escalation in therapy she unfortunately progressively continue to worsen, working harder on breathing, with worsening on ABG. She is getting tired. Additional discussion was had with her and her son as well on the phone conference call, and they were agreeable to proceed with intubation. Vitals/I&O/Wt Last Vital Signs Temp 97.3 F L 02/24/21 08:00 Pulse 105 H 02/24/21 11:34 Resp 22 H 02/24/21 11:25 BP 149/119 02/24/21 10:00 Pulse Ox 93 02/24/21 11:25 02/23/21 02/24/21 02/24/21 22:59 06:59 14:59 Intake Total 150 / 150 50 / 50 Output Total 325 / 325 450 / 450 Balance 150 / 150 -325 / -175 -400 / -400 Weight last 48 hrs Weight 72.575 kg Weight 70.307 kg Physical Exam Const: COMMON NORMALS: no acute distress and patient oriented x3 OTHER: Awake, alert, sitting forward, left up on, speaking in few short statements. HENMT: COMMON NORMALS: oropharynx normal Neck/C-Spine: COMMON NORMALS: no JVD Resp: COMMON NORMALS: normal respiratory effort AUSCULTATION: wheezes and diminished lung sounds Cardio: COMMON NORMALS: no JVD, regular rhythm, S1 normal heart sound present, S2 normal heart sound present and No murmurs present (Cardio) RHYTHM: regular rhythm HEART SOUNDS: S1 normal heart sound present and S2 normal heart sound present GI: COMMON NORMALS: Normal to inspection, nondistended, normoactive bowel sounds present, Soft to palpation and non-tender PALPATION: Yes Soft to palpation Extremity: COMMON NORMALS: no joint enlargement and no pedal edema Neuro: COMMON NORMALS: patient oriented x3 and moves all extremities Skin: COMMON NORMALS: no rashes or lesions noted GENERAL SKIN EXAM: no rashes or lesions noted Data : 02/24/21 03:45 02/24/21 03:45 Micro: Microbiology 02/23/21 01:35 Legionella Urinary Antigen - Final Urine,Clean Catch Bacterial Antigens - Final 02/23/21 22:14 Blood Culture - Preliminary Blood SPECIMEN COLLECTED 02/23/21 22:10 Blood Culture - Preliminary Blood SPECIMEN COLLECTED A&P Assessment and plan (1) Acute exacerbation of chronic obstructive pulmonary disease (COPD): With progressive worsening, increasing work of breathing, worsening blood gas, 7.27-7.26 on repeat, carbon dioxide worsening from 69-75.8 despite BiPAP. Intubated. CXR. Initiate MV support. Sedation. Collect culture if poss. Weaning trial in the morning. Severe exacerbation of COPD. Worsening. Solu-Medrol 0 mg every 6. Pulmicort. Scheduled nebulizations every 4 hours and continue as needed. Status: Acute (2) Acute on chronic respiratory failure with hypoxia and hypercapnia: Status: Acute (3) Community acquired pneumonia: No pneumonia on CTA, however, clinically in respiratory failure, with leukocytosis, sinus tachycardia. Noted sepsis on admission. Continue antibiotics. Follow blood cultures. Requesting sputum culture. Status: Acute (4) Sepsis: Status: Acute (5) Smoking addiction: Continue to encourage cessation. Status: Acute Additional A&P Information Full code Cardiac diet DVT prophylaxis Lovenox Will need outpatient pulmonary follow-up and home O2 evaluation p Attestations Medical Necessity Statement*: Continued mission for assessment management of acute hypoxic and hypercapnic respite failure. 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
[2021-02-24] MEDS: succinylcholine 20 mg/mL SDV 10mL 75 MG IVP (14:27)
--- NOTE | 2021-02-24 14:27 | PM.ACPR ---
Procedure/Consent Consent: Consent for Procedure: Consent obtained from patient Procedure Narrative: Intubation due to worsening respiratory failure. Acute Procedures Intubation: Time out performed: Yes Sedative: etomidate Mg given: 20 Paralytic: succinylcholine Mg given: 100 Laryngoscope: fiber optic video scope ET tube size: 8 ET tube uncuffed: Yes Tube secured depth (cm): 23 Tube placement confirmation: visualized tube passing through cords, equal breath sounds bilaterally, no breath sounds over epigastrium and color change noted Patient tolerated procedure: well and no complications Additional comments: Assisted by Dr Elliott at bedside.
--- NOTE | 2021-02-24 14:30 | PC.NURSE ---
Dr. Nieto et Dr. Andrews at bedside to intubate patient. Patient pre-medicated with 20 mg IV etomidate et 100 mg IV Succinylcholine. Time out performed. Patient orally intubated with 8.0 ETT, positive placement confirmed with CO2 color changer, chest x-ray will be obtained. Patient tolerated intubation well. Please RT flowsheet for details.
--- NOTE | 2021-02-24 14:30 | PC.NURSE ---
Post intubation chest x-ray results reviewed. Satisfactory placement of ETT.
[2021-02-24] MEDS: propofol 1,000 MG/100 ML INJ 4.4 MG IV (14:39)
[2021-02-24] MEDS: propofol 1,000 MG/100 ML INJ 8.7 MG IV (17:32)
[2021-02-24 17:52] LABS: ABG PH Result 7.36 (7.35-7.45); Alveolar-Arterial Oxygen Gradi 20.1 mmHg (5-10); Arterial Blood Gas Hematocrit 42.6 % (37-47); Base Excess ABG 7.2 mmol/L (-2.0-2.0); Blood Gas Allen Test Pos; Blood Gas Operator Identificat GD; Blood Gas Sample Site Radial, right; Blood Gas Sample Type Arterial; Carboxyhemoglobin 0.9 %THgb (0.4-20.1); HCO3 ABG 34.8 mmol/L (22-26); Ionized Calcium Level - ABG 1.5 mmol/L (1.1-1.4); Methemoglobin 0.7 % (0.4-1.5); Oxygen Device VENT; Oxygen Saturation ABG 92.4; Potassium Level - ABG 4.5 mmol/L (3.5-5.0); Total Hemoglobin 13.9 g/dL (12-16)
[2021-02-24 17:54] LABS: ABG PCO2 61.4 mmHg (35-45)
[2021-02-24] MEDS: dexmedetomidine 400 MCG in sodium chloride 0.9% (100 ml) 100 ML IV (18:10)
[2021-02-24] MEDS: propofol 1,000 MG/100 ML INJ 21.8 MG IV (21:41)
--- NOTE | 2021-02-24 21:51 | PC.NURSE ---
Authorization to release information Matt Harper had called [employer] [facility] about concerns of not receiving healthcare information on his mother. Matt was informed by manager local he was not on contact list. Neno Harper (son of patient) called to floor at 1940 and verbalized authorization to give information to Matt Harper (also son) and wishes for patient to be added to call list for PHI. Registration notified.
[2021-02-24] MEDS: enoxaparin 40 mg/0.4 mL Syringe SUBCUT (23:03)
--- NOTE | 2021-02-24 23:43 | PC.NURSE ---
Change in sedation Propofol causing hypotension. Had notified Dr. Mckeon, orders received to wean Propofol and start Versed gtt.
[2021-02-25] VITALS (118 sets, daily range): BP systolic 81–134; BP diastolic 53–96; PULSE 60–117; RESP 10–20; TEMP 36.4–37; O2SAT 87–99
[2021-02-25] MEDS: ipratropium-albuterol 3 mL Neb INHALATION ×7 (04:02→23:21)
[2021-02-25 04:03] LABS: Basophils % 0.1 %; Hemoglobin 12.2 g/dL (11.5-15.3); Lymphocytes # 1.2 10^3/uL (0.8-4.8); Lymphocytes % 7.4 %; Mean Corpuscular HGB Conc 31.3 g/dL (30.0-36.0); Mean Corpuscular Hemoglobin 31.6 pg (28.0-34.0); Monocytes # 0.5 10^3/uL (0.2-0.9); Monocytes % 2.7 %; Neutrophils # 14.82 10^3/uL (1.8-7.7); Neutrophils % 89.3 %; Nucleated Red Blood Cells % 0 %; Platelet Count 323 10^3/cmm (130-400); Red Blood Count 3.86 10^6/uL (4.1-5.3); Red Cell Distribution Width 12.4 % (12.1-15.1); White Blood Count 16.6 10^3/uL (4.0-10.0)
[2021-02-25 04:24] LABS: Alanine Aminotransferase 16 U/L (0-33); Albumin Level 3.8 g/dL (3.5-5.2); Alkaline Phosphatase 66 IU/L (35-105); Anion Gap 13.2 (5-19); Aspartate Amino Transferase 12 U/L (0-32); Blood Urea Nitrogen 25 mg/dL (6-20); Carbon Dioxide 32 mmol/L (22-29); Chloride 102 mmol/L (98-107); Globulin 2.8 g/dL (1.3-4.6); Glomerular Filtration Rate 75.9 mL/min (90-130); Glucose 135 mg/dL (65-115); Osmolality Calculated 302 mOsm/kg (285-295); Potassium 4.2 mmol/L (3.5-5.1); Sodium 143 mmol/L (136-145); Total Bilirubin 0.2 mg/dL (0.15-1.2); Total Protein 6.6 g/dL (6.6-8.7)
[2021-02-25 04:36] LABS: ABG PH Result 7.34 (7.35-7.45); Arterial Blood Gas Hematocrit 38.7 % (37-47); Base Excess ABG 8.2 mmol/L (-2.0-2.0); Blood Gas Sample Site Brachial, right; Blood Gas Sample Type Arterial; HCO3 ABG 36.4 mmol/L (22-26); Oxygen Device VENT; PO2 ABG 64.6 mmHg (80.0-100.0)
--- NOTE | 2021-02-25 06:00 | XR_ITS ---
WS: [id number] Portable AP semiupright chest, 02/25/2021 Clinical Data: Hypoxia Comparison: Portable chest, 02/24/2021. Findings: No nodules, masses or effusions are seen. The heart is normal. The pulmonary vascularity is not increased. No pneumonia or pneumothorax is seen. The endotracheal tube remains above the marco a. Monitor leads on the chest wall. XR/XR chest 1V portable [id number] Impression: No change from yesterday's portable chest.
[2021-02-25] MEDS: budesonide 0.5 mg/2 mL Neb INHALATION ×2 (07:35→20:04)
--- NOTE | 2021-02-25 08:52 | P.PN_ITS ---
Subjective Subjective: Interval history: Eyes closed, appears to be resting. Denies pain. Reports breathing overall is more comfortable. Denies chest tightness or pain. Vitals/I&O/Wt Last Vital Signs Temp 97.6 F 02/25/21 06:00 Pulse 86 02/25/21 07:35 Resp 15 02/25/21 07:41 BP 115/85 02/25/21 06:00 Pulse Ox 88 L 02/25/21 07:41 02/24/21 02/25/21 02/25/21 22:59 06:59 14:59 Intake Total 165.276 / 215.276 96.533 / 311.809 Output Total 500 / 950 250 / 1200 Balance -334.724 / -734.724 -153.467 / -888.191 Weight last 48 hrs Weight 72.575 kg Weight 70.307 kg Physical Exam Const: COMMON NORMALS: no acute distress and patient oriented x3 HENMT: COMMON NORMALS: oropharynx normal Neck/C-Spine: COMMON NORMALS: no JVD Resp: COMMON NORMALS: normal respiratory effort AUSCULTATION: no rhonchi, no wheezes and diminished lung sounds Cardio: COMMON NORMALS: no JVD, regular rhythm, S1 normal heart sound present, S2 normal heart sound present and No murmurs present (Cardio) RHYTHM: regular rhythm HEART SOUNDS: S1 normal heart sound present and S2 normal heart sound present GI: COMMON NORMALS: Normal to inspection, nondistended, normoactive bowel sounds present, Soft to palpation and non-tender PALPATION: Yes Soft to palpation Extremity: COMMON NORMALS: no joint enlargement and no pedal edema Neuro: COMMON NORMALS: patient oriented x3 and moves all extremities Skin: COMMON NORMALS: no rashes or lesions noted GENERAL SKIN EXAM: no rashes or lesions noted Urinary Catheter Management^: Walters: Cath Placed During This Visit: yes Reason for Continuing Indwelling Catheter: Accurate Measurement of Urinary Output in Critically Ill Patients Urinary Catheter Date of Insertion: 02/24/21 Urinary Catheter Time of Insertion: 21:30 Data : 02/25/21 03:30 02/25/21 03:30 Micro: Microbiology 02/23/21 22:14 Blood Culture - Preliminary Blood NEGATIVE TO DATE 02/23/21 22:10 Blood Culture - Preliminary Blood NEGATIVE TO DATE 02/24/21 14:30 Gram Stain - Final Sputum - Endotracheal Tube Aspirate 02/23/21 01:35 Legionella Urinary Antigen - Final Urine,Clean Catch Bacterial Antigens - Final A&P Assessment and plan (1) Acute exacerbation of chronic obstructive pulmonary disease (COPD): Clinically she is doing a bit better today. Does not have as much wheezing. Moving little bit more air. Still, working against a ventilator per discussion with RT, despite being on 100 MCG of fentanyl, 5 of Versed, as well as 0.3 of Precedex. She appears calm, but is awake, answering questions, following commands. Discussed with her . He denies any drug alcohol use. We will keep working with sedation to try to get her little bit better sedated so she may work with the ventilator. Follow sputum culture. Severe exacerbation of COPD. Solu-Medrol 60 mg every 6. Antibiotics. Pulmicort. Nebulizations every 4 hours with DuoNeb. Twice daily Pulmicort. Long-term she really needs to quit smoking. Discussed with . May benefit from seeing a record maker. Consider testing for alpha-1 antitrypsin deficiency. Status: Acute (2) Acute on chronic respiratory failure with hypoxia and hypercapnia: Status: Acute (3) Community acquired pneumonia: Follow-up sputum, blood cultures. Continue antibiotics. Status: Acute (4) Sepsis: Status: Acute (5) Smoking addiction: Continue to encourage cessation. Status: Acute Additional A&P Information Full code Cardiac diet DVT prophylaxis Lovenox p Attestations Medical Necessity Statement*: Continue admission for assessment management of acute respiratory failure with hypoxia and hypercapnia, mechanical ventilator support. Critical Care Time: In addition to noncritical issues 30 minutes critical care time spent on life-threatening issues of respiratory failure requiring mechanical infiltrate support, with ventilator dyssynchrony, incomplete response to sedation, adjustment of ventilation, sedation. Discussed with respiratory therapy. Nursing staff. Patient's . 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
[2021-02-25] MEDS: cefTRIAXone 1,000 MG in sodium chloride 0.9% (plus) 50 ML 100 MG IV (09:29)
[2021-02-25] MEDS: azithromycin 500 MG in sodium chloride 0.9% 250 ML 250 MG IV (12:00)
[2021-02-25] MEDS: dexmedetomidine 400 MCG in sodium chloride 0.9% (100 ml) 100 ML 7.5 MCG IV (12:02)
[2021-02-25 12:26] LABS: ABG PCO2 67.8 mmHg (35-45)
--- NOTE | 2021-02-25 16:06 | XRR_ITS ---
PROCEDURE INFORMATION: Exam: XR Chest Exam date and time: 02/25/2021 4:08 PM Age: 50 years old Clinical indication: Other: Hypoxia, difficulty ventilating TECHNIQUE: Imaging protocol: XR of the chest Views: 1 view. COMPARISON: CR XR chest 1V portable [id number] 02/25/2021 5:07 AM FINDINGS: Tubes, catheters and devices: Endotracheal tube is 3.6 cm above the marco a. Lungs: Unremarkable. No consolidation. Pleural spaces: Unremarkable. No pleural effusion. No pneumothorax. Heart/Mediastinum: Unremarkable. No cardiomegaly. Bones/joints: Unremarkable. XR/XR chest 1V portable [id number] IMPRESSION: 1. No acute findings. 2. Endotracheal tube is above the marco a
--- NOTE | 2021-02-25 16:30 | PC.NURSE ---
RT requesting more sedation for patient because she is unable to ventilate patient. RT called physician. Vent settings were changed per physician. Please see physician et RT notes for details et vent changes.
--- NOTE | 2021-02-25 17:35 | PC.NURSE ---
ABG results noted. Physician notified et present. vent changes noted et implemented.
[2021-02-25 17:49] LABS: Arterial Blood Gas Hematocrit 40.1 % (37-47); Base Excess ABG 6.8 mmol/L (-2.0-2.0); Blood Gas Allen Test Pos; Blood Gas Operator Identificat GD; Blood Gas Sample Site Radial, right; Blood Gas Sample Type Arterial; HCO3 ABG 38.3 mmol/L (22-26); Oxygen Device VENT
[2021-02-25 17:50] LABS: ABG PCO2 97.1 mmHg (35-45)
--- NOTE | 2021-02-25 18:13 | PC.RESP ---
Unable to reach Dr. Nieto to report critical ABG results. Will keep trying.
[2021-02-25 18:56] LABS: Alveolar-Arterial Oxygen Gradi 32.3 mmHg (5-10); Arterial Blood Gas Hematocrit 38.8 % (37-47); Base Excess ABG 4.7 mmol/L (-2.0-2.0); Blood Gas Allen Test Pos; Blood Gas Operator Identificat GD; Blood Gas Sample Site Radial, right; Blood Gas Sample Type Arterial; Carboxyhemoglobin 0.5 %THgb (0.4-20.1); HCO3 ABG 36.1 mmol/L (22-26); Ionized Calcium Level - ABG 1.4 mmol/L (1.1-1.4); Methemoglobin 1.1 % (0.4-1.5); Oxygen Device VENT; Oxygen Saturation ABG 91.4; Potassium Level - ABG 4.6 mmol/L (3.5-5.0); Total Hemoglobin 12.7 g/dL (12-16)
[2021-02-25 18:57] LABS: ABG PCO2 96.3 mmHg (35-45); ABG PH Result 7.18 (7.35-7.45)
--- NOTE | 2021-02-25 19:00 | PC.NURSE ---
Report Bedside report received from Odette MCCORD. Pt remains intubated with fentanyl at 150mcg/hr, Versed at 6mg/hr, Precedex at 0.4mcg/kg/hr. Physician Dr. Nieto approved of fentanyl and versed being above hospital protocol max rates. High PIP pressures, pt autopeeping on ventilator and use of accessory muscles. Dr. Nieto at bedside on phone with catering attendant for ventilator changes and ABG results.
[2021-02-25] MEDS: magnesium sulfate premix 2 GM/50 ML PIGGYBACK IV (19:51)
--- NOTE | 2021-02-25 19:55 | XRR_ITS ---
PROCEDURE INFORMATION: Exam: XR Chest Exam date and time: 02/25/2021 8:10 PM Age: 50 years old Clinical indication: Shortness of breath; Additional info: R/O pneumothorax TECHNIQUE: Imaging protocol: XR of the chest Views: 1 view. COMPARISON: CR XR chest 1V portable [id number] 02/25/2021 4:33 PM FINDINGS: Tubes, catheters and devices: ET tube is in the trachea approximately 3.5 cm above the marco a. Lungs: Hyperlucency of the upper lungs is related to the patient's known advanced, marked centrilobular emphysema described on 02/23/2021 CTA of the chest. No alveolar infiltrate. Pleural spaces: No pneumothorax is detected. No pleural effusion. Heart/Mediastinum: Unremarkable. No cardiomegaly. Bones/joints: Unremarkable. XR/XR chest 1V portable [id number] IMPRESSION: New pneumothorax detected. Hyperlucency of the upper lungs is related to the patient's known advanced, marked centrilobular emphysema.
--- NOTE | 2021-02-25 20:55 | PC.NURSE ---
Chest Xray Clarification Stat chest xray done to R/o pneumothorax. [facility] report had orginially reported New pneumonthorax seen. Dr. Mckeon, Dr. Snow, and Dr. Garcia reviewed xray and contacted [facility]. Radiologist had typed in report incorrectly, report was supposed to read no pneumothorax seen . Dr. Mckeon calls to floor and reports no pneumothorax on chest xray and to cancel second repeat chest xray.
--- NOTE | 2021-02-25 21:35 | PC.NURSE ---
Central Line Dr. Mckeon at bedside to place central line prior to starting paralytics. Informed consent was obtained by Dr. Nieto with Vikas. Time out completed prior to procedure, see flowsheet.
[2021-02-25 21:54] LABS: ABG PCO2 90.2 mmHg (35-45); ABG PH Result 7.22 (7.35-7.45)
[2021-02-25 21:55] LABS: HCO3 ABG 36.8 mmol/L (22-26); Oxygen Device vent
[2021-02-25 21:56] LABS: Arterial Blood Gas Hematocrit 38.7 % (37-47)
--- NOTE | 2021-02-25 22:10 | PC.NURSE ---
Arterial line Informed consent received from family by Dr. Mckeon over the phone. Nurse to verify. Immediate time out completed and right radial arterial line [address] Mckeon. Assistant Associate Professor assisted with sterile procedure.
--- NOTE | 2021-02-25 22:27 | P.PCN_ITS ---
Procedure/Consent Time out: Time Out Performed: Yes Consent: Consent for Procedure: Consent obtained from other (indicate) (Consent taken from her mother, indications, complications and benefits explained, benefits outweigh the risk of arterial line infection and bleeding) Procedure Narrative: Ultrasound-guided right radial arterial access under sterile technique for hypertension continuous monitoring of blood pressure and repeated ABG indication Acute Procedures Arterial Line: Time out performed: Yes Size (Gauge): 20 Technique used: other (Ultrasound-guided) Post-Procedure: dry sterile dressing placed Pa tient tolerated procedure: no complications Complications: none Site: right Additional comments: Right radial arterial line placement using ultrasound guided technique Right wrist was prepped with prep stick, sterile ultrasound probe was used, sterile gel was obtained to visualize right radial arterial pulsation, right radial access obtained on first attempt without any complications Estimated blood loss 0 mL Sterile dressing placed mean arterial pressure 65 Epistaxis Control: Time out performed: Yes
--- NOTE | 2021-02-25 22:32 | PM.ACPR ---
Procedure/Consent Time out: Time Out Performed: Yes Consent: Consent for Procedure: Consent obtained from other (indicate) (, witnessed by the nurse, risk benefits and complication explained including central line infection, bleeding) Additional Consent Information: Right-sided femoral central venous access using ultrasound-guided technique Site was prepped and properly draped Sterile ultrasound probe was used along sterile gel Femoral vein compressibility checked Nivia ICU nurse present throughout the procedure Lidocaine 1%, 5 mL injected 3 cm below inguinal ligament Femoral line was accessed with first attempt, good venous return noted and was witnessed by the nurse as well Seldinger technique was used to access femoral vein Good venous return from all 3 ports after the placement of central line Line was secured with sutures, sterile LOCK and sterile dressing placed Estimated blood loss 10 mL Acute Procedures Arterial Line: Size (Gauge): 20 Epistaxis Control: Time out performed: Yes
--- NOTE | 2021-02-25 22:35 | PM.EVENT ---
Event Note Event Note: I reviewed chest x-ray findings with Dr. Snow and Dr. Garcia, there is no pneumothorax no significant change from previous chest x-ray, addendum made to the chest x-ray findings I was asked to put central line by my colleague Dr. Nieto Patient mean arterial pressure was 63mmhg Right femoral vein was accessed using ultrasound technique , Right radial arterial line was placed as well with ultrasound technique Consent was obtained for procedure ICU nurse Nivia was present throughout the procedure Post procedure no complications It Infrastructure Specialist Dr. Snow was notified, Patient clinically looks dry and getting BNP and lactic acid and giving 500 mL bolus will monitor urine output on hourly basis Mechanical ventilator settings as per pulmonology Above intervention and 500 cc bolus discussed with the printed circuit boards pinner Critical care time 60 minutes
--- NOTE | 2021-02-25 22:44 | PC.NURSE ---
BIZ monitor placed on patient. Baseline level 30's-40. Peripheral nerve stimulator used to eyebrow at 4mA to illicit response. 4/4 twitches seen. PNS to right ulnar at 8mA to ilicit nerve response, 4/4 twitches observed.
[2021-02-25] MEDS: rocuronium 10 mg/mL INJ 5mL 70 MG IV (23:01)
--- NOTE | 2021-02-25 23:09 | PC.NURSE ---
Addendum entered by Nivia Noble RN 02/26/21 01:52: Rocuronium drip started at 5mcg/kg/min per protocol. Original Note: Paralytic 70mg Rocuronium IVP bolus given. Rocuronium gtt started at 1.5mcg/kg/min at this time. Restraints released and discontinued at this time.
[2021-02-25 23:10] LABS: Lactate (Lactic Acid level) 1.3 mmol/L (0.5-2.2)
[2021-02-25] MEDS: enoxaparin 40 mg/0.4 mL Syringe SUBCUT (23:18)
[2021-02-25 23:20] LABS: NT Pro B Type Natriuretic Pept 533 pg/mL (0-125)
[2021-02-25] MEDS: sodium chloride 0.9% 500 ML IV (23:35)
[2021-02-26] VITALS (131 sets, daily range): BP systolic 99–132; BP diastolic 57–84; PULSE 87–122; RESP 16; TEMP 36.4–37.7; O2SAT 90–99
--- NOTE | 2021-02-26 00:59 | PC.NURSE ---
Train of Four 4/4 twitches response with 4mA applied. Rocuronium titrated to 6mcg/kg/min.
[2021-02-26 01:00] LABS: ABG PH Result 7.31 (7.35-7.45); Arterial Blood Gas Hematocrit 36.8 % (37-47); Base Excess ABG 5.5 mmol/L (-2.0-2.0); Blood Gas Sample Site Not specified; Blood Gas Sample Type Arterial; HCO3 ABG 33.6 mmol/L (22-26); Oxygen Device VENT; PO2 ABG 86.6 mmHg (80.0-100.0)
[2021-02-26 01:39] LABS: ABG PCO2 66.7 mmHg (35-45)
[2021-02-26] MEDS: ipratropium-albuterol 3 mL Neb INHALATION ×2 (03:12→15:05)
[2021-02-26] MEDS: dexmedetomidine 400 MCG in sodium chloride 0.9% (100 ml) 100 ML 7.5 MCG IV ×2 (03:29→17:24)
--- NOTE | 2021-02-26 03:29 | PC.NURSE ---
TOF 4/4 twitches observed to brow. Ventilator compliance met . Rocuronium drip infusing at 6mcg/kg/min, no adjustment at this time. BIS score 20's, Versed drip decreased by 1mg. Will continue to monitor and assess.
--- NOTE | 2021-02-26 03:58 | PC.NURSE ---
After consulting with RT, patient peak insp pressures continue to elevated high 30's-mid 40's. TOF 4/4 twitches on 4 mA. Rocuronium gtt increased to 7mcg/kg/min at this time for better compliance. Pt is breathing at set rate of ventilator at 16 and pulling 500 tidal volumes.
[2021-02-26] MEDS: sodium chloride 0.9% 500 ML IV (04:09)
[2021-02-26 05:21] LABS: Basophils % 0.1 %; Hematocrit 36.8 % (37.0-47.0); Hemoglobin 11.3 g/dL (11.5-15.3); Lymphocytes % 5.3 %; Mean Corpuscular HGB Conc 30.7 g/dL (30.0-36.0); Mean Corpuscular Hemoglobin 31.6 pg (28.0-34.0); Mean Corpuscular Volume 102.8 fL (81-99); Monocytes # 0.8 10^3/uL (0.2-0.9); Neutrophils # 17.47 10^3/uL (1.8-7.7); Neutrophils % 89.9 %; Nucleated Red Blood Cells % 0 %; Platelet Count 335 10^3/cmm (130-400); Red Blood Count 3.58 10^6/uL (4.1-5.3); Red Cell Distribution Width 12.2 % (12.1-15.1); White Blood Count 19.4 10^3/uL (4.0-10.0)
--- NOTE | 2021-02-26 05:31 | PC.NURSE ---
TOF/BIS TOF 6 mA to elicit response 4/4 twitches to brow BIS monitor fluctuating 20-25
[2021-02-26 05:40] LABS: ABG PH Result 7.36 (7.35-7.45); Arterial Blood Gas Hematocrit 34.7 % (37-47); Base Excess ABG 6.8 mmol/L (-2.0-2.0); Blood Gas Sample Type Arterial; HCO3 ABG 33.9 mmol/L (22-26); Oxygen Device VENT; PO2 ABG 76.6 mmHg (80.0-100.0)
[2021-02-26 05:41] LABS: Alanine Aminotransferase 12 U/L (0-33); Albumin Level 3.7 g/dL (3.5-5.2); Alkaline Phosphatase 54 IU/L (35-105); Anion Gap 10.8 (5-19); Aspartate Amino Transferase 7 U/L (0-32); Blood Urea Nitrogen 39 mg/dL (6-20); Calcium 9.5 mg/dL (8.5-10.5); Carbon Dioxide 30 mmol/L (22-29); Chloride 108 mmol/L (98-107); Globulin 2.1 g/dL (1.3-4.6); Glomerular Filtration Rate 75.9 mL/min (90-130); Glucose 170 mg/dL (65-115); Osmolality Calculated 313 mOsm/kg (285-295); Potassium 3.8 mmol/L (3.5-5.1); Sodium 145 mmol/L (136-145); Total Bilirubin 0.3 mg/dL (0.15-1.2); Total Protein 5.8 g/dL (6.6-8.7)
[2021-02-26 05:41] LABS: ABG PCO2 60.8 mmHg (35-45)
--- NOTE | 2021-02-26 06:00 | XRR_ITS ---
PROCEDURE INFORMATION: Exam: XR Chest Exam date and time: 02/25/2021 11:59 PM Age: 50 years old Clinical indication: Other: Hypoxia TECHNIQUE: Imaging protocol: XR of the chest Views: 1 view. COMPARISON: CR XR chest 1V portable [id number] 02/25/2021 7:53 PM FINDINGS: Tubes, catheters and devices: Termination of endotracheal tube 4.1 cm above the marco a. Lungs: Severe emphysematous change and mild interstitial disease. Pleural spaces: No pleural effusion. Heart/Mediastinum: Diminished heart size in association with COPD. Bones/joints: Unremarkable. When correlating with the previous study, no significant interval changes are present. XR/XR chest 1V portable [id number] IMPRESSION: Stable appearance of the chest, not significantly changed from 02/25/2021 .
--- NOTE | 2021-02-26 06:28 | XRR_ITS ---
PROCEDURE INFORMATION: Exam: XR Chest Exam date and time: 02/26/2021 6:28 AM Age: 50 years old Clinical indication: Shortness of breath; Additional info: Intubated TECHNIQUE: Imaging protocol: XR of the chest Views: 1 view. COMPARISON: CR (CHEST, ) 02/26/2021 5:07 AM FINDINGS: Tubes, catheters and devices: Endotracheal tube tip resides 4.3 cm above the marco a. Lungs: Hyperinflation bilaterally persist. Possible bullous emphysematous changes of the superior lungs bilaterally. Scarring at the medial right upper lobe. Pleural spaces: Unremarkable. No pleural effusion. No pneumothorax. Heart/Mediastinum: Unremarkable. No cardiomegaly. Bones/joints: Unremarkable. XR/XR chest 1V portable [id number] IMPRESSION: Hyperinflation with similar hyper lucency at the upper lungs which may indicate large bulla formation. No change in the appearance of the chest compared to earlier on the same date.
[2021-02-26] MEDS: budesonide 0.5 mg/2 mL Neb INHALATION ×2 (07:33→19:47)
[2021-02-26] MEDS: ipratropium 0.5 mg/2.5 mL Neb INHALATION ×8 (07:33→23:27)
[2021-02-26] MEDS: levalbuterol 1.25 mg/3 mL Neb INHALATION ×8 (07:33→22:20)
[2021-02-26] MEDS: FUROsemide 10 mg/mL SDV 2mL 20 MG IVP (08:33)
[2021-02-26] MEDS: cefTRIAXone 1,000 MG in sodium chloride 0.9% (plus) 50 ML 100 MG IV (09:07)
--- NOTE | 2021-02-26 10:24 | P.PN_ITS ---
Vitals/I&O/Wt Last Vital Signs Temp 98.1 F 02/26/21 08:00 Pulse 116 H 02/26/21 10:00 Resp 16 02/26/21 09:44 BP 103/64 02/26/21 10:00 Pulse Ox 99 02/26/21 10:00 02/25/21 02/26/21 02/26/21 22:59 06:59 14:59 Intake Total 150 / 221.640 9657.047 / 2006.403 350.060 / 350.060 Output Total 500 / 500 435 / 935 Balance -350 / 194.356 877.047 / 1071.403 350.060 / 350.060 Physical Exam Const: COMMON NORMALS: no acute distress and patient oriented x3 OTHER: HENMT: COMMON NORMALS: oropharynx normal Neck/C-Spine: COMMON NORMALS: no JVD Resp: COMMON NORMALS: normal respiratory effort AUSCULTATION: no rhonchi, no wheezes and diminished lung sounds Cardio: COMMON NORMALS: no JVD, regular rhythm, S1 normal heart sound present, S2 normal heart sound present and No murmurs present (Cardio) RHYTHM: regular rhythm HEART SOUNDS: S1 normal heart sound present and S2 normal heart sound present GI: COMMON NORMALS: Normal to inspection, nondistended, normoactive bowel soun ds present, Soft to palpation and non-tender PALPATION: Yes Soft to palpation Extremity: COMMON NORMALS: no joint enlargement and no pedal edema Neuro: COMMON NORMALS: patient oriented x3 and moves all extremities Skin: COMMON NORMALS: no rashes or lesions noted GENERAL SKIN EXAM: no rashes or lesions noted Urinary Catheter Management^: Walters: Cath Placed During This Visit: yes Reason for Continuing Indwelling Catheter: Accurate Measurement of Urinary Output in Critically Ill Patients Urinary Catheter Date of Insertion: 02/24/21 Urinary Catheter Time of Insertion: 21:30 Data : 02/26/21 04:43 02/26/21 04:43 Micro: Microbiology 02/24/21 14:30 Gram Stain - Final Sputum - Endotracheal Tube Aspirate Sputum Culture - Preliminary A&P Assessment and plan (1) Acute exacerbation of chronic obstructive pulmonary disease (COPD): Yesterday very difficult time to ventilate, despite changing multiple settings, with auto PEEP, working against the ventilator. Discussing with her family, ended up having to use paralytic. Blood pressure low due to sedation, paralysis, with central line placement, art line placement due to hypotension, on minimal dose of pressor to maintain blood pressures currently. Likely can wean off today. To the airways still sound tight, but is working with the ventilator much better. ABG improving. Additional magnesium repeated today. Nebulization continued until the afternoon, with pressure monitoring, and may be extended if needed. Lasix given. Discussed with . Agreeable with plan. Continue to monitor pressures. Target manage ventilation 8.5-9. If worsening acidosis on subsequent ABG, check lactic acid. Follow sputum culture. Severe exacerbation of COPD. Bronchospasm. Suspected asthma component. Solu-Medrol IV. Antibiotics. Pulmicort. Nebulizations changed to Xopenex, Atrovent. Pulmicort. Long-term she really needs to quit smoking. Discussed with . We will need a PFT. Follow-up with pulmonology. Very severe emphysema on imaging. Will check alpha-1 antitrypsin. Tube feeds. Famotidine GI prophylaxis. Status: Acute (2) Acute on chronic respiratory failure with hypoxia and hypercapnia: Status: Acute (3) Community acquired pneumonia: Follow-up sputum, blood cultures. Continue antibiotics. Status: Acute (4) Sepsis: Status: Acute (5) Smoking addiction: Continue to encourage cessation. Status: Acute Additional A&P Information Full code DVT prophylaxis Lovenox Attestations Medical Necessity Statement*: Continue admission for assessment management of severe respiratory failure with hypoxia and hypercapnia, severe COPD exacerbation, mechanical ventilator dependence, paralysis, sedation. Critical Care Time: In addition to known critical issues, 40 minutes critical care time spent on assessment management of persistent severe respiratory failure with hypoxia and hypercapnia, reassessment of respiratory status, ventilator settings, additional treatments for bronchospasm, hemodynamic as sessment adjustment of pressor support, reassessment of antibiotic therapy. Discussed with family. Nursing staff. Respiratory therapy. Procedures Arterial Line Size (Gauge): 20 Coding Level of Care Code Acute International Relations Teacher for Chg Fwd Exam Comprehensive Diagnoses Acute exacerbation of chronic obstructive pulmonary disease (COPD) J44.1 Acute on chronic respiratory failure with hypoxia and hypercapnia J96.21; J96.22 Community acquired pneumonia J18.9 Sepsis A41.9 Smoking addiction F17.200
[2021-02-26] MEDS: azithromycin 500 MG in sodium chloride 0.9% 250 ML 250 MG IV (11:28)
[2021-02-26] MEDS: famotidine 20 mg/2 mL INJ IVP (11:29)
--- NOTE | 2021-02-26 13:46 | PC.NURSE ---
BIS BIS 25-30 Brow twitch 4/4 MA 5
--- NOTE | 2021-02-26 18:27 | PC.NURSE ---
TOF/BIS/Shift Summary TOF 5 mA 4/4 twitches BIS between 25-30 Pt is resting well current gtt rates; Fentanyl 150mcg, versed 4mg, precedex 0.4mcg, rocuronium 7mcg. Vent settings Fio2 55, RR 16, Tidal 500, peep 8. Pt's lungs are still tight. Urine output of 700. Right radial art CDI. Right femoral central CDI. Family has been updated throughout the shift by nursing and phys.
[2021-02-27] VITALS (128 sets, daily range): BP systolic 106–170; BP diastolic 63–98; PULSE 82–105; RESP 16; TEMP 36.6–37.2; O2SAT 92–99
[2021-02-27] MEDS: enoxaparin 40 mg/0.4 mL Syringe SUBCUT
--- NOTE | 2021-02-27 00:22 | PC.NURSE ---
ASSUMING CARE Patient is resting in bed mechanically ventilated. 23 cm @ lip, 8.0 tube, CMV mode, FiO2 55%, TV 500, Rate 26, PEEP 8. Patient has fentanyl running at 150 mcg/hour, versed at 4 mg/hour, precedex at 0.4 mcg/hour, and rocuronium at 7 mcg/kg/min. Day shift nurse reports at bedside last T04 done at approximately 1730, 4/4 twitches, but patient remains vent compliant. BIS monitor in upper 20s to low 30s.
[2021-02-27] MEDS: levalbuterol 1.25 mg/3 mL Neb INHALATION ×8 (01:06→23:11)
[2021-02-27] MEDS: ipratropium 0.5 mg/2.5 mL Neb INHALATION ×5 (02:24→23:12)
[2021-02-27] MEDS: ipratropium-albuterol 3 mL Neb INHALATION ×2 (04:06→07:29)
[2021-02-27 04:53] LABS: ABG PH Result 7.35 (7.35-7.45); Arterial Blood Gas Hematocrit 33.9 % (37-47); Base Excess ABG 10.2 mmol/L (-2.0-2.0); Blood Gas Operator Identificat JB; Blood Gas Sample Type Arterial; HCO3 ABG 37.9 mmol/L (22-26); Oxygen Device VENT
[2021-02-27 04:54] LABS: ABG PCO2 68.2 mmHg (35-45)
[2021-02-27 05:25] LABS: Basophils % 0.1 %; Hematocrit 35.6 % (37.0-47.0); Hemoglobin 10.7 g/dL (11.5-15.3); Lymphocytes # 0.7 10^3/uL (0.8-4.8); Lymphocytes % 6.7 %; Mean Corpuscular HGB Conc 30.1 g/dL (30.0-36.0); Mean Corpuscular Hemoglobin 31.8 pg (28.0-34.0); Mean Corpuscular Volume 105.6 fL (81-99); Mean Platelet Volume 10.1 fL (7.4-10.4); Monocytes # 0.4 10^3/uL (0.2-0.9); Monocytes % 4.1 %; Neutrophils # 9.58 10^3/uL (1.8-7.7); Neutrophils % 88.2 %; Nucleated Red Blood Cells % 0 %; Platelet Count 289 10^3/cmm (130-400); Red Blood Count 3.37 10^6/uL (4.1-5.3); Red Cell Distribution Width 12.5 % (12.1-15.1); White Blood Count 10.9 10^3/uL (4.0-10.0)
[2021-02-27 05:50] LABS: Alanine Aminotransferase 32 U/L (0-33); Albumin Level 3.4 g/dL (3.5-5.2); Alkaline Phosphatase 48 IU/L (35-105); Anion Gap 10.1 (5-19); Aspartate Amino Transferase 24 U/L (0-32); Blood Urea Nitrogen 32 mg/dL (6-20); Calcium 9.4 mg/dL (8.5-10.5); Carbon Dioxide 33 mmol/L (22-29); Chloride 112 mmol/L (98-107); Globulin 2.4 g/dL (1.3-4.6); Glomerular Filtration Rate 88.6 mL/min (90-130); Glucose 138 mg/dL (65-115); Osmolality Calculated 321 mOsm/kg (285-295); Potassium 4.1 mmol/L (3.5-5.1); Sodium 151 mmol/L (136-145); Total Bilirubin 0.3 mg/dL (0.15-1.2); Total Protein 5.8 g/dL (6.6-8.7)
--- NOTE | 2021-02-27 06:00 | XRR_ITS ---
PROCEDURE INFORMATION: Exam: XR Chest Exam date and time: 02/27/2021 5:29 AM Age: 50 years old Clinical indication: Shortness of breath; Patient HX: Hypoxia requiring vent TECHNIQUE: Imaging protocol: XR of the chest Views: 1 view. COMPARISON: CR (CHEST, ) 02/26/2021 7:28 AM FINDINGS: Tubes, catheters and devices: An endotracheal tube is placed with its tip approximately 3.3 cm from the marco a. Lungs: There are hazy linear opacities present in the lower hemithoraces bilaterally and some mild bronchial wall thickening present, findings compatible with a bilateral basilar atelectasis versus pneumonia. Pleural spaces: Unremarkable. No pleural effusion. No pneumothorax. Heart/Mediastinum: Unremarkable. No cardiomegaly. Bones/joints: Unremarkable. XR/XR chest 1V portable [id number] IMPRESSION: 1. Endotracheal tube tip 3.3 cm from the marco a. 2. Hazy linear opacities in the lower hemithoraces and mild bronchial wall thickening suggests bilateral basilar atelectasis versus pneumonia.
--- NOTE | 2021-02-27 06:01 | PC.NURSE ---
TO4/BIS TO4 Per rocuronium protocol 2130 4/4 twitches to left eye brow 0130 4/4 twitches to left eye brow 0430 4/4 twitches to left eye brow *Vent compliance met throughout entire shift and rocuronium not titrated this shift. BIS Q2H protocol 1900 30 2030 26 (fentanyl, versed, precedex decreased) 2130 34 2330 32 0130 36 0330 34 0530 37
--- NOTE | 2021-02-27 06:04 | PC.NURSE ---
SHIFT SUMMARY Patient has had very uneventful night and has met vent compliance this shift. Tidal volume decreased to 400 by respiratory therapist. 1000 mL urine output. Temperature max at beginning of night 99.8, most recent 97.6. Radial art line still in place, no issues with pressures. Fentanyl at 100 mcg/hour, precedex at 0.3 mcg/hour, versed at 3 mg/hour, and rocuronium remains at 7 mcg/kg/min. Neurologically pupils are ERRL. See previous note for BIS/TO4.
[2021-02-27] MEDS: budesonide 0.5 mg/2 mL Neb INHALATION ×2 (07:29→19:34)
--- NOTE | 2021-02-27 08:39 | XRR_ITS ---
PROCEDURE INFORMATION: Exam: XR Chest Exam date and time: 02/27/2021 9:09 AM Age: 50 years old Clinical indication: Device placement; Ng tube; Additional info: Tube placement TECHNIQUE: Imaging protocol: XR of the chest Views: 1 view. COMPARISON: CR XR chest 1V portable [id number] 02/27/2021 5:17 AM FINDINGS: Tubes, catheters and devices: Termination of feeding tube in the proximal stomach. Lungs: Emphysematous change and interstitial prominence in the incompletely visualized chest. Pleural spaces: No left pleural effusion. Nonvisualization of the right costophrenic angle. Heart/Mediastinum: No cardiomegaly. Bones/joints: Unremarkable. XR/XR chest 1V portable [id number] IMPRESSION: Termination of feeding tube in the proximal stomach.
[2021-02-27] MEDS: cefTRIAXone 1,000 MG in sodium chloride 0.9% (plus) 50 ML 100 MG IV (08:47)
--- NOTE | 2021-02-27 10:30 | P.PN_ITS ---
Subjective Subjective: Interval history: Intubated, sedated. Vitals/I&O/Wt Last Vital Signs Temp 97.9 F 02/27/21 05:57 Pulse 91 02/27/21 10:00 Resp 16 02/27/21 09:30 BP 117/71 02/27/21 10:00 Pulse Ox 94 02/27/21 10:00 02/26/21 02/27/21 02/27/21 22:59 06:59 14:59 Intake Total 540.708 / 1245.201 250 / 1495.201 150 / 150 Output Total 200 / 1735 800 / 2535 Balance 340.708 / -489.799 -550 / -1039.799 150 / 150 Weight last 48 hrs Weight 74.344 kg Physical Exam Const: COMMON NORMALS: no acute distress OTHER: Intubated, sedated, paralyzed. HENMT: COMMON NORMALS: oropharynx normal Neck/C-Spine: COMMON NORMALS: no JVD Resp: COMMON NORMALS: normal respiratory effort AUSCULTATION: no rhonchi, wheezes (mild) and diminished lung sounds Cardio: COMMON NORMALS: no JVD, regular rhythm, S1 normal heart sound present, S2 normal heart sound present and No murmurs present (Cardio) RHYTHM: regular rhythm HEART SOUNDS: S1 normal heart sound present and S2 normal heart sound present GI: COMMON NORMALS: Normal to inspection, nondistended, normoactive bowel sounds present, Soft to palpation and non-tender PALPATION: Yes Soft to palpation Extremity: COMMON NORMALS: no joint enlargement and no pedal edema Neuro: COMMON NORMALS: moves all extremities Skin: COMMON NORMALS: no rashes or lesions noted GENERAL SKIN EXAM: no rashes or lesions noted Urinary Catheter Management^: Walters: Cath Placed During This Visit: yes Reason for Continuing Indwelling Catheter: Accurate Measurement of Urinary Output in Critically Ill Patients Urinary Catheter Date of Insertion: 02/24/21 Urinary Catheter Time of Insertion: 21:30 Data : 02/27/21 04:46 02/27/21 04:46 Micro: Microbiology 02/24/21 14:30 Gram Stain - Final Sputum - Endotracheal Tube Aspirate Sputum Culture - Final A&P Assessment and plan (1) Acute exacerbation of chronic obstructive pulmonary disease (COPD): Yesterday management lotion was good, 8.5-8.9. Or it appears to have decreased. Oxygenation remains good. Came down on FiO2 45%. Discussing with respiratory, appears perhaps paradoxically some transient worsening bronchospasm noted after albuterol. We are therefore switching all nebulizations to Xopenex only. At this time continue every 2 hours. We will monitor. Target ventilation 8.5-9. For now continue paralytics, sedation. Tomorrow once available consider pulmonary consultation. Updated and discussed with . Agreeable with plan. If worsening acidosis on subsequent ABG, check lactic acid. Negative sputum culture. Severe exacerbation of COPD. Bronchospasm. Suspected asthma component. Solu-Medrol IV. Antibiotics. Pulmicort. Atrovent. Long-term she really needs to quit smoking. Discussed with . We will need a PFT. Follow-up with pulmonology. Very severe emphysema on imaging. Will check alpha-1 antitrypsin. Tube feeds. Famotidine GI prophylaxis. Status: Acute (2) Acute on chronic respiratory failure with hypoxia and hypercapnia: Status: Acute (3) Hypernatremia: Tube flushes 150 mL every 6 hours. Discussed with pharmacy, switch over infusion base fluids to D5 where possible. Status: Acute (4) Community acquired pneumonia: Follow-up sputum, blood cultures. Continue antibiotics. Status: Acute (5) Sepsis: Status: Acute (6) Smoking addiction: Will need to discuss and encourage cessation. Status: Acute Additional A&P Information Full code DVT prophylaxis Lovenox Attestations Medical Necessity Statement*: Continue admission for assessment management of acute respiratory with hypoxia and hypercapnia. Procedures Arterial Line Size (Gauge): 20 Coding Level of Care Code Acute Cuff Setter for [facility] Diagnoses Acute exacerbation of chronic obstructive pulmonary disease (COPD) J44.1 Acute on chronic respiratory failure with hypoxia and hypercapnia J96.21; J96.22 Hypernatremia E87.0 Community acquired pneumonia J18.9 Sepsis A41.9 Smoking addiction F17.200
--- NOTE | 2021-02-27 11:02 | PC.PHAR ---
All appropriate IVP medications and infusions have been switched over to D5W from NS per Dr. Nieto's request.
[2021-02-27] MEDS: famotidine 20 mg/2 mL INJ IVP ×2 (11:53)
[2021-02-27] MEDS: dexmedetomidine 400 MCG in sodium chloride 0.9% (100 ml) 100 ML 7.5 MCG IV (13:05)
--- NOTE | 2021-02-27 20:23 | PC.NURSE ---
Addendum entered by Lenora Andre RN 02/27/21 20:33: Charted by Lenora Andre RN on accident, amended to assume care. Original Note: Assumed care from GENEVA RN. BIS monitor sensors not functioning correctly. Both nurses repositioned sensors. New BIS sensor applied. BIS level 22. TOF 4/4 on eyebrow with m/A at 6. Decreased versed to 2 mg/hr, precedex to 0.2 mcg/kg/hr Fentanyl to 75 mcg/hr, Hieu currently at 7 mcg/kg/min. Reassessed BIS now reading at 2000 at 33, TOF 4/4 w/ m/A 6. Vent compliance still met. Continue care.
[2021-02-28] VITALS (120 sets, daily range): BP systolic 100–187; BP diastolic 70–120; PULSE 67–108; RESP 11–17; TEMP 36.6–37.6; O2SAT 89–99
[2021-02-28] MEDS: levalbuterol 1.25 mg/3 mL Neb INHALATION ×9 (00:28→23:54)
[2021-02-28] MEDS: enoxaparin 40 mg/0.4 mL Syringe SUBCUT ×2 (00:31→23:35)
[2021-02-28] MEDS: famotidine 20 mg/2 mL INJ IVP ×3 (00:32→23:35)
[2021-02-28] MEDS: labetalol 5 mg/mL SDV 20mL 20 MG IVP (00:40)
--- NOTE | 2021-02-28 02:50 | PC.NURSE ---
Addendum entered by Lenora Andre RN 02/28/21 05:01: Witnessed waste Original Note: Wasted 26.417 of Versed witness by Destin Andre RN
[2021-02-28] MEDS: ipratropium 0.5 mg/2.5 mL Neb INHALATION ×6 (03:18→23:53)
--- NOTE | 2021-02-28 05:02 | PC.NURSE ---
TO4/BIS TO4 Per rocuronium protocol 1929 4/4 twitches to left eye brow 2200 4/4 twitches to left eye brow 0000 4/4 twitches to left eye brow 0200 1/4 twitches to left eye brow (Hieu turned off per protocol) 0230 2/4 twitches to left eye brow (Hieu turned back on at 3.5 mcg/kg/min per protocol) 0300 3/4 twitches to left eye brow 0330 4/4 twitches to left eye brow 0430 4/4 twitches to left eye brow 0500 4/4 twitches to left eye brow *Vent compliance met throughout entire shift and rocuronium not titrated this shift. BIS Q2H protocol 1929 22 (fentanyl, versed, precedex decreased) 1999 33 2200 34 2400 32 0130 36 0200 30 0230 38 0300 40 0330 38 0430 38 0500 38
[2021-02-28 06:17] LABS: ABG PH Result 7.38 (7.35-7.45); Arterial Blood Gas Hematocrit 36.4 % (37-47); Base Excess ABG 13.3 mmol/L (-2.0-2.0); Blood Gas Operator Identificat JB; Blood Gas Sample Site Not specified; Blood Gas Sample Type Arterial; HCO3 ABG 41.2 mmol/L (22-26); Oxygen Device VENT; PO2 ABG 73.5 mmHg (80.0-100.0)
[2021-02-28 06:19] LABS: ABG PCO2 69.7 mmHg (35-45)
--- NOTE | 2021-02-28 06:27 | PC.NURSE ---
TOF 0600 4/4 twitches to left eye brow BIS 0600 40
[2021-02-28] MEDS: budesonide 0.5 mg/2 mL Neb INHALATION ×2 (07:27→19:50)
--- NOTE | 2021-02-28 08:00 | PC.NURSE ---
BIS/TOF BIS 37 TOF 4/4 eyebrow twitch Fentanyl at 50mcg, precedex 0.4mcg, versed 2mg, Hieu 3mcg.
--- NOTE | 2021-02-28 08:15 | XRR_ITS ---
PROCEDURE INFORMATION: Exam: XR Chest Exam date and time: 02/28/2021 8:24 AM Age: 50 years old Clinical indication: Shortness of breath; Additional info: SOB TECHNIQUE: Imaging protocol: XR of the chest Views: 1 view. COMPARISON: CR (CHEST, ) 02/27/2021 9:11 AM FINDINGS: Tubes, catheters and devices: An endotracheal tube and nasogastric tube projects in satisfactory position. Lungs: There is overinflation of the lungs consistent with emphysema.. No consolidation. Pleural spaces: Unremarkable. No pleural effusion. No pneumothorax. Heart/Mediastinum: Unremarkable. No cardiomegaly. Bones/joints: Unremarkable. XR/XR chest 1V portable [id number] IMPRESSION: 1. Satisfactory endotracheal tube and nasogastric tube position. 2. Overinflated lungs consistent with emphysema. 3. No pneumonia is seen.
--- NOTE | 2021-02-28 08:16 | USCV_ITS ---
Radha Doe Age: 50 Gender: F : 1970 Exam Date: 02/28/2021 13:18 Ordering Phys: Hansel Grant MD Technologist: Sunny Hewitt Exam Location: [facility] – [place] Indication: TX BP: 151 / 105 HR: 97 Rhythm: Sinus Technical Quality: Technically difficult study MEASUREMENTS (Male / Female) Normal Values 2D ECHO LV Diastolic Diameter PLAX 3.6 cm 4.2 - 5.9 / 3.9 - 5.3 cm LV Systolic Diameter PLAX 2.4 cm IVS Diastolic Thickness 0.9 cm 0.6 - 1.0 / 0.6 - 0.9 cm IVS Systolic Thickness 0.9 cm LVPW Diastolic Thickness 1.0 cm 0.6 - 1.0 / 0.6 - 0.9 cm LVPW Systolic Thickness 1.2 cm LVOT Diameter 1.5 cm LV Ejection Fraction 2D Teich 61.7 % LV Ejection Fraction MOD 2C 45.5 % LV Ejection Fraction 2C AL 46.0 % LA Diameter 3.1 cm LA Width 3.7 cm LA Height 3.2 cm RA Width 3.1 cm RA Height 2.4 cm Aorta at Sinotubular Diameter 2.0 cm M-MODE LV Diastolic Diameter MM 5.8 cm 4.2 - 5.9 / 3.9 - 5.3 cm LV Systolic Diameter MM 4.9 cm LV Ejection Fraction MM Teich 31.6 % IVS Diastolic Thickness MM 0.9 cm 0.6 - 1.0 / 0.6 - 0.9 cm IVS Systolic Thickness MM 1.2 cm LVPW Diastolic Thickness MM 1.1 cm 0.6 - 1.0 / 0.6 - 0.9 cm LVPW Systolic Thickness MM 1.6 cm RV Diastolic Diameter MM 1.3 cm Aortic Annulus Diameter 3.2 cm LA Ao Ratio MM 1.0 MV E Point Septal Separation 1.8 cm DOPPLER AV Peak Velocity 76.0 cm/s LVOT Peak Velocity 78.0 cm/s AV Area Cont Eq vti 2.2 cm squared AV Area Cont Eq pk 1.9 cm squared MV Area PHT 5.0 cm squared Mitral E to A Ratio 2.9 MV E' Velocity 44.0 cm/s Mitral E to MV E' Ratio 8.0 Mitral E to LV E' Lateral Ratio 10.3 Mitral E to LV E' Septal Ratio 6.5 TR Peak Velocity 96.6 cm/s TR Peak Gradient 3.7 mmHg PV Peak Velocity 92.0 cm/s FINDINGS Left Ventricle Technically difficult study. Grossly LV systolic function is atleast moderately reduced. Can not rule out regional wall motion abnormalities because of poor visualization. Diastolic function is abnormal Right Ventricle The right ventricle is normal in size and function. Right Atrium Not well visualized Left Atrium Not well visualized Mitral Valve Grossly normal Aortic Valve Not well visualized. No significant aortic stenosis or regurgitation Tricuspid Valve Not well visualized Pulmonic Valve Not visualized Pericardium Normal pericardium without effusion. Aorta Normal ascending aorta dimension. CONCLUSIONS This is technically limited study. Poor visualization of cardiac structures. LV systolic function is at least moderately reduced. Wall motion abnormalities cannot be ruled out because of poor visualization. Diastolic function is abnormal. Valves are not well visualized however no gross abnormalities No comparison studies are available Matthew Romo MD (Electronically Signed) Final Date: 28 February 2021 19:30 S
[2021-02-28] MEDS: amlodipine 10 mg Tablet PO (09:03)
[2021-02-28] MEDS: cefTRIAXone 1,000 MG in dextrose 5 % 100 ML 100 MG IV (09:03)
[2021-02-28 09:30] LABS: Basophils % 0.2 %; Hematocrit 39.9 % (37.0-47.0); Hemoglobin 11.8 g/dL (11.5-15.3); Lymphocytes # 0.7 10^3/uL (0.8-4.8); Mean Corpuscular HGB Conc 29.6 g/dL (30.0-36.0); Mean Corpuscular Hemoglobin 32.1 pg (28.0-34.0); Mean Corpuscular Volume 108.4 fL (81-99); Mean Platelet Volume 9.8 fL (7.4-10.4); Monocytes # 0.7 10^3/uL (0.2-0.9); Monocytes % 6.3 %; Neutrophils # 10.05 10^3/uL (1.8-7.7); Neutrophils % 85.5 %; Nucleated Red Blood Cells % 0.2 %; Platelet Count 286 10^3/cmm (130-400); Red Blood Count 3.68 10^6/uL (4.1-5.3); Red Cell Distribution Width 12.4 % (12.1-15.1); White Blood Count 11.8 10^3/uL (4.0-10.0)
[2021-02-28] MEDS: dexmedetomidine 400 MCG in sodium chloride 0.9% (100 ml) 100 ML 11.3 MCG IV (09:32)
[2021-02-28 09:52] LABS: Lactate (Lactic Acid level) 0.9 mmol/L (0.5-2.2)
[2021-02-28 09:53] LABS: Alanine Aminotransferase 586 U/L (0-33); Albumin Level 3.5 g/dL (3.5-5.2); Alkaline Phosphatase 56 IU/L (35-105); Anion Gap 9.5 (5-19); Aspartate Amino Transferase 512 U/L (0-32); Blood Urea Nitrogen 31 mg/dL (6-20); Calcium 9.6 mg/dL (8.5-10.5); Carbon Dioxide 36 mmol/L (22-29); Chloride 106 mmol/L (98-107); Creatinine Clr Calc Pharmacy 131.5834; Globulin 2.4 g/dL (1.3-4.6); Glomerular Filtration Rate 130.6 mL/min (90-130); Glucose 152 mg/dL (65-115); Magnesium 2.6 mg/dL (1.7-2.3); Osmolality Calculated 314 mOsm/kg (285-295); Phosphorus 2.9 mg/dL (2.5-4.5); Potassium 4.5 mmol/L (3.5-5.1); Sodium 147 mmol/L (136-145); Total Bilirubin 0.8 mg/dL (0.15-1.2); Total Protein 5.9 g/dL (6.6-8.7)
--- NOTE | 2021-02-28 10:00 | PC.NURSE ---
BIS/TOF BIS 39 TOF 4/4 to left eyebrow
[2021-02-28 11:48] LABS: Alpha 1 Antitrypsin 171 mg/dL (83-199)
--- NOTE | 2021-02-28 12:00 | PC.NURSE ---
BIS/TOF BIS 42 TOF is 4/4 with eyebrow twitch. Fetanyl 75mcg, precedex 1.0, versed 1.0, sravanthi 2.5
--- NOTE | 2021-02-28 13:12 | PM.PN ---
Subjective Subjective: Interval history: This morning patient was examined, she remains intubated, mechanically ventilated, sedated, on paralytics, her PCO2 is 69.7, pH 7.38, her ventilator settings were adjusted by Dr. Flores, overnight she remains afebrile, good urine output, normotensive, 40% FiO2 Vitals/I&O/Wt Last Vital Signs Temp 98.2 F 02/28/21 07:00 Pulse 82 02/28/21 12:31 Resp 12 02/28/21 12:31 BP 105/70 02/28/21 12:15 Pulse Ox 94 02/28/21 12:31 02/27/21 02/28/21 02/28/21 22:59 06:59 14:59 Intake Total 710.10 / 8090.711 0072.175 / 2205.900 1778.574 / 1778.574 Output Total 500 / 2000 1000 / 3000 1800 / 1800 Balance 210.10 / -809.275 15.175 / -794.100 -21.426 / -21.426 Weight last 48 hrs Weight 76.204 kg Weight 74.344 kg Physical Exam Narrative: EXAM NARRATIVE: Intubated, sedated, on paralytics Eye: GENERAL EYE: appearance normal, both eyes and all related structures Neck/C-Spine: COMMON NORMALS: no lymphadenopathy and no JVD Chest: COMMONS NORMALS: normal inspection of the chest Resp: COMMON NORMALS: normal respiratory effort and No use of accessory muscles AUSCULTATION: diminished lung sounds OTHER: Barrel chested Cardio: COMMON NORMALS: no JVD, regular rate, regular rhythm, S1 normal heart sound present and S2 normal heart sound present RATE: regular rate RHYTHM: regular rhythm HEART SOUNDS: S1 normal heart sound present and S2 normal heart sound present GI: COMMON NORMALS: Normal to inspection, nondistended, normoactive bowel sounds present, Soft to palpation, non-tender and No hepatosplenomegaly present PALPATION: Yes Soft to palpation and Yes No hepatosplenomegaly present Extremity: COMMON NORMALS: capillary refill normal, no clubbing, cyanosis or edema and no pedal edema Neuro: OTHER: Intubated, sedated Urinary Catheter Management^: Walters: Cath Placed During This Visit: yes Reason for Continuing Indwelling Catheter: Accurate Measurement of Urinary Output in Critically Ill Patients Urinary Catheter Date of Insertion: 02/24/21 Urinary Catheter Time of Insertion: 21:30 Data : 02/28/21 09:15 02/28/21 09:15 A&P Assessment and plan (1) Acute exacerbation of chronic obstructive pulmonary disease (COPD): -Secondary to COPD, hypercarbic respiratory failure, pneumonia -Over the weekend has had issues with auto PEEP, breathing over ventilator, bronchospasms -Currently pH 7.38, hypercarbic PCO2 69.7 -Intubated, sedated, ventilator, numerous PEEP, minimize FiO2, Daily spontaneous weaning trials -Art line in place, central line in place -Currently off pressors -Currently on Versed, fentanyl, Precedex. Plan on weaning Versed -Currently on rocuronium, maintain bis greater than 60 -Solu-Medrol 80 every 6 hours -Continue tube feeds, blood sugars every 4 hours, maintain blood sugar 140-180 --2 L, avoid fluid overload, cardiac echo ordered -Follow alpha-1 antitrypsin -Continue Rocephin and azithromycin -Follow sputum cultures, blood cultures -Xopenex, Pulmicort -Pepcid for GI prophylaxis -Lovenox for GI prophylaxis -Pulmonary on consult -Prognosis guarded, status is stable -Discussed with at bedside, he agrees to continue interventions, will hold off on transfer Status: Acute (2) Acute on chronic respiratory failure with hypoxia and hypercapnia: Status: Acute (3) Hypernatremia: Status: Acute (4) Community acquired pneumonia: Follow-up sputum, blood cultures. Continue antibiotics. Status: Acute (5) Sepsis: Status: Acute (6) Smoking addiction: Continue to encourage cessation. 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
--- NOTE | 2021-02-28 13:15 | PM.CONSULT ---
Providers/Reason For Consult Consulting Physican/Specialty*: Pulmonary critical care medicine Reason for Consult*: Acute hypoxic respiratory failure due to COPD exacerbation Attending Physician: Hansel Grant MD Primary Care Provider: Violeta Tavarez MD History of Present Illness History of Present Illness Radha Doe is a 50 year old female with history of COPD who presented to the hospital on February 23 with COPD exacerbation. The patient was initially managed with noninvasive positive pressure ventilation however she got intubated on February 24. After getting intubated, there had been difficulty ventilating the patient. Currently the patient is paralyzed and sedated with fentanyl, Versed and Precedex. Radiologic data: The patient had a CT angiogram of the chest on February 23 which did not reveal any evidence of pneumonia. There is no pulmonary embolism. Patient has significant centrilobular emphysema bilaterally predominantly in the upper lobes. The chest x-ray obtained this morning revealed hyperinflation without any evidence of pneumonia. Microbiology data: The endotracheal aspirate Gram stain and culture had been negative for any pathogenic bacteria. The patient has chronic hypercapnic respiratory failure with a baseline PCO2 in the mid 60s. Pulmonary function test: Pulmonary function test obtained in September 2018 revealed an FEV1 FVC ratio of 43% with FEV1 of 1.18 L which was 42% of break and forced vital capacity of 2.77 L which was 79% of corrected. The expiratory time was 14 seconds. The patient was seen and examined this morning. Currently she is intubated sedated and paralyzed. Review of Systems Narrative: Unable to assess Meds/Allergies Home Medications and Allergies Home Medications Medication Instructions Recorded Confirmed Last Taken Type albuterol sulfate 2.5 mg INHALATION Q4H PRN 30 Days 02/03/21 02/23/21 Unknown Rx #540 ml albuterol sulfate 90 mcg/actuation 2 puff INHALATION Q6H PRN #8.5 g 02/03/21 02/23/21 02/23/21 Rx aerosol inhaler fluticasone 250 mcg-salmeterol 50 1 inh INHALATION Q12H #60 ea 02/03/21 02/23/21 02/23/21 Rx mcg/dose blistr powdr for inhalation prednisone 20 mg tablet 20 mg PO DAILY #30 tab 02/03/21 02/23/21 02/23/21 Rx ibuprofen 800 mg tablet 800 mg PO TID PRN #90 tab 02/07/21 02/23/21 Unknown Rx Allergies Allergy/AdvReac Type Severity Reaction Status Date / Time No Known Allergies Allergy Verified 02/23/21 20:32 Current Medications Current Medications Generic Name Dose Route Start Last Admin Trade Name Freq PRN Reason Stop Dose Admin Amlodipine Besylate 10 mg 02/28/21 09:00 02/28/21 09:03 Amlodipine 10 Mg Tablet PO 10 mg DAILY EDMUNDO Administration Budesonide 0.5 mg 02/25/21 08:00 02/28/21 07:27 Budesonide 0.5 Mg/2 Ml Neb INHALATION 0.5 mg BID.RESPIRATORY EDMUNDO Administration Enoxaparin Sodium 40 mg 02/23/21 23:19 02/28/21 00:31 Enoxaparin 40 Mg/0.4 Ml Syringe SUBCUT 40 mg Q24H EDMUNDO Administration Famotidine 20 mg 02/26/21 12:00 02/28/21 11:34 Famotidine 20 Mg/2 Ml Inj IVP 20 mg Q12H EDMUNDO Administration Dexmedetomidine HCl 400 mcg/ 104 mls @ 0 mls/hr 02/24/21 16:00 02/28/21 10:40 Sodium Chloride IV 1 mcg/kg/hr .Q0M EDMUNDO 18.9 mls/hr Titration Protocol Per Protocol Norepinephrine Bitartrate 4 mg 254 mls @ 0 mls/hr 02/25/21 19:45 02/27/21 06:22 / Dextrose IV Infused .Q0M EDMUNDO Titration Protocol Per Protocol Azithromycin 500 mg/ Dextrose 250 mls @ 250 mls/hr 02/27/21 11:30 02/28/21 12:08 IV Infused Q24H EDMUNDO Infusion Protocol Ceftriaxone Sodium 1,000 mg/ 100 mls @ 100 mls/hr 02/28/21 09:00 02/28/21 10:40 Dextrose IV Infused DAILY EDMUNDO Infusion Protocol Midazolam HCl 100 mg/ Dextrose 100 mls @ 0 mls/hr 02/27/21 11:00 02/28/21 11:45 IV 1 mg/hr .Q0M EDMUNDO 1 mls/hr Titration Protocol Per Protocol Fentanyl 1,000 mcg/ Dextrose 100 mls @ 0 mls/hr 02/27/21 11:00 02/28/21 10:45 IV 75 mcg/hr .Q0M EDMUNDO 7.5 mls/hr Administration Protocol Per Protocol Rocuronium [place] 250 mg/ 250 mls @ 0 mls/hr 02/27/21 11:00 02/28/21 08:16 Dextrose IV 3 mcg/kg/min .Q0M EDMUNDO 13.7 mls/hr Titration Protocol Per Protocol Ipratropium [place] 0.5 mg 02/27/21 12:00 02/28/21 12:30 Ipratropium 0.5 Mg/2.5 Ml Neb INHALATION 0.5 mg Q4H.RESPIRATORY EDMUNDO Administration Levalbuterol HCl 1.25 mg 02/27/21 12:00 02/28/21 12:30 Levalbuterol 1.25 Mg/3 Ml Neb INHALATION 1.25 mg Q4H.RESPIRATORY EDMUNDO Administration Levalbuterol HCl 1.25 mg 02/27/21 09:00 02/28/21 10:11 Levalbuterol 1.25 Mg/3 Ml Neb INHALATION 1.25 mg Q2H PRN Administration SHORTNESS OF BREATH Methylprednisolone Sodium Succinate 80 mg 02/28/21 00:31 02/28/21 11:34 Methylprednisolone Sod Succ 40 Mg/Ml Inj IVP 80 mg Q6H EDMUNDO Administration PFSH Acute PFSH: Medical History COPD (chronic obstructive pulmonary disease) Diverticular disease of intestine with perforation and abscess Surgical History H/O tubal ligation H/O: hysterectomy S/P excision of ganglion cyst Family History Father Diabetes Mother Diabetes Social History Smoking and tobacco status: current every day smoker cigarettes [ Other cigarette details: She smokes 4 to 5 cigarettes a day, heavy smoker in the past ] Alcohol intake: never Substance/Drug Use: never Housing: House Previous occupational history: Worked at [email or web address] Female Reproductive History: Date of last menstrual period: 11/26/14 Vitals/I&O/Wt Last Vital Signs Temp 98.2 F 02/28/21 07:00 Pulse 82 02/28/21 12:31 Resp 12 02/28/21 12:31 BP 105/70 02/28/21 12:15 Pulse Ox 94 02/28/21 12:31 02/27/21 02/28/21 02/28/21 22:59 06:59 14:59 Intake Total 710.10 / 4827.804 8180.175 / 2205.900 1778.574 / 1778.574 Output Total 500 / 2000 1000 / 3000 1800 / 1800 Balance 210.10 / -809.275 15.175 / -794.100 -21.426 / -21.426 Weight last 48 hrs Weight 168 lb Weight 163 lb 14.4 oz Physical Exam Narrative: EXAM NARRATIVE: General: The patient is intubated and sedated Neck: No JVD Respiratory: Inspection: Barrel-shaped chest Auscultation: Reduced breath sound bilaterally, no crackles or wheezing occasional rhonchi Cardiovascular: Regular rate and rhythm, S1-S2 present, distant heart sound, no murmur, no peripheral edema. Abdomen: Soft, nontender, nondistended, absent bowel sound Musculoskeletal: No obvious joint deformity Skin: No rash Neuro: Unable to assess Urinary Catheter Management^: Walters: Cath Placed During This Visit: yes Reason for Continuing Indwelling Catheter: Accurate Measurement of Urinary Output in Critically Ill Patients Urinary Catheter Date of Insertion: 02/24/21 Urinary Catheter Time of Insertion: 21:30 A&P Assessment and plan (1) Acute exacerbation of chronic obstructive pulmonary disease (COPD): The patient had suffered from acute on chronic hypoxic and hypercapnic respiratory failure from COPD exacerbation. There is no evidence of pneumonia at this time. The patient is on ceftriaxone and azithromycin. I have cut down the Solu-Medrol dose to 40 mg twice a day IV. The patient is on DuoNeb and Pulmicort nebulization [id number]. The most important thing for this patient is the prevention of auto PEEP as well as air trapping and hyperinflation. Currently the patient is on volume control mechanical ventilation with respiratory rate of 12. She is currently paralyzed. The plan is going to be stopping the paralytics today and maintain her sedation on fentanyl and Precedex preferably and as much as Versed is needed. The most crucial part of her management is control of respiratory rate. Any event that increases her respiratory rate will result in dynamic hyperinflation resulting in respiratory failure. Status: Acute (2) Acute on chronic respiratory failure with hypoxia and hypercapnia: I am hoping to extubate the patient tomorrow or the day after. She will certainly need to be extubated to BiPAP. 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
[2021-02-28 13:18] LABS: Blood Gas Sample Site ARTLINE
--- NOTE | 2021-02-28 13:21 | US_ITS ---
WS: [id number] ULTRASOUND ABDOMEN CLINICAL INFORMATION: tranaminits COMPARISON: None. FINDINGS: Liver Size: Enlarged Craniocaudal length: 19.9 cm. Echogenicity: Coarse Surface nodularity: None. Mass (size and location): None. Normal hepatic veins and portal veins. Bile ducts Intrahepatic ducts: Normal. Common bile duct diameter: 0.6 cm. Gallbladder Cholelithiasis Gallstones: Present Gallbladder sludge: None. Gallbladder wall thickening: None. Pericholecystic fluid: None. Sonographic Solis sign: Absent. Pancreas Normal as visualized. Right kidney: Normal. Hydronephrosis: None. Size: 9.2 cm x 4.9 cm x 4.3 cm Abdominal aorta and IVC Visualized portions are normal. Ascites: None. US/US liver [id number] IMPRESSION: 1. Hepatomegaly with diffuse fatty infiltration. 2. Gallbladder is contracted. Cholelithiasis. 3. Normal common bile duct. 4. No hydronephrosis in right kidney.
--- NOTE | 2021-02-28 14:00 | PC.NURSE ---
BIS/TOF Pt BIS is 39 TOF 4/4 twitch to eyebrow.
--- NOTE | 2021-02-28 14:00 | PC.NURSE ---
MDR with PULM Hieu has been turned off per Dr Flores. Precedex is now at 1.5mcg, Fentanyl is at 75mcg, and versed is at 0.5. Per Dr Flores we are to maintain these settings as long as pt is tolerating well.
[2021-02-28 14:05] LABS: Hepatitis A Antibody IgM Non-Reactive (Nonreactive); Hepatitis B Core IgM Non-Reactive (Nonreactive); Hepatitis B Surface Antigen Non-Reactive (Nonreactive); Hepatitis C Virus Antibody Non-Reactive (Nonreactive)
[2021-02-28] MEDS: dexmedetomidine 400 MCG in sodium chloride 0.9% (100 ml) 100 ML 28.3 MCG IV (15:10)
--- NOTE | 2021-02-28 15:13 | PC.NURSE ---
FELISHA response Pt is still and opens eyes when her name is said. She has no signs of anxiety.
--- NOTE | 2021-02-28 16:02 | PC.NURSE ---
Phys Notification Dr Flores notified of pt's 02 sats in the high 80's. Verbal order given to bolus 50mcg of fentanyl then increase to 100mcg. Order given to bolus 50mcg again after 15min if a positive response is not seen. Fentanyl can be maxed out at 200mcg if needed. No additional orders at this time.
--- NOTE | 2021-02-28 16:18 | PC.NURSE ---
Fentanyl 1600 Fentanyl bolus of 50mcg. 1619 Fentanyl bolus of 50mcg. Basal set to 100mcg. O2 sat of 90%. BP 107/71, HR 100.
--- NOTE | 2021-02-28 18:36 | PC.NURSE ---
Phys notified Pt having increased accessory breathing. Dr Grant came and examined pt, Dr Flores came to bedside also. Pt is using stomach muscles and lungs sound tight. Dr Flores increased fentanyl to 150mcg. Also ordered Versed 2mg bolus as needed to help keep pt comfortable. Sats currently at 92%, HR 89, BP 109/79. Dr Grant was able to reach Pt's and update him.
[2021-02-28 18:55] LABS: HIV 1 & 2 Antibody Non-Reactive (Non-Reactiv); HIV 1 & 2 Antigen Non-Reactive (Non-Reactiv)
[2021-02-28 20:07] LABS: ABG PH Result 7.39 (7.35-7.45); Arterial Blood Gas Hematocrit 37.7 % (37-47); Blood Gas Operator Identificat JB; Blood Gas Sample Type Arterial; Carboxyhemoglobin 0.8 %THgb (0.4-20.1); HCO3 ABG 40.7 mmol/L (22-26); Ionized Calcium Level - ABG 1.3 mmol/L (1.1-1.4); Oxygen Saturation ABG 96.7; PO2 ABG 83.9 mmHg (80.0-100.0); Potassium Level - ABG 4.6 mmol/L (3.5-5.0); Total Hemoglobin 12.3 g/dL (12-16)
[2021-02-28 20:08] LABS: ABG PCO2 66.7 mmHg (35-45); Alveolar-Arterial Oxygen Gradi 15.6 mmHg (5-10); Oxygen Device VENT
[2021-03-01] VITALS (113 sets, daily range): BP systolic 83–161; BP diastolic 63–106; PULSE 72–119; RESP 11–27; TEMP 36.6–37.9; O2SAT 88–97
[2021-03-01] MEDS: ipratropium 0.5 mg/2.5 mL Neb INHALATION ×6 (04:20→23:12)
[2021-03-01] MEDS: levalbuterol 1.25 mg/3 mL Neb INHALATION ×6 (04:20→23:12)
--- NOTE | 2021-03-01 05:00 | USCV_ITS ---
Nader Radha Age: 50 Gender: F : 1970 Exam Date: 03/01/2021 06:39 Ordering Phys: Hansel Grant MD Technologist: Qiana Villanueva Exam Location: [facility] [place] Indication: RUE SWELLING HISTORY: Lower extremity edema. PROCEDURES: RIGHT IJV, INNOM V, SUBCLAV, AXILLARY, CEPHALIC, BRACHIALS, BASILIC V, RADIAL V, AND ULNAR V IMAGED FINDINGS: THROMBUS SEEN IN CEPHALIC VEIN FROM PROX-ACF, ALL OTHER VEINS APPEAR PATENT CONCLUSIONS Thrombus RUE cephalic vein in the upper arm to elbow Remainder of RUE veins are patent Gustavo Escobar MD (Electronically Signed) Final Date: 01 March 2021 17:26 S
[2021-03-01 05:41] LABS: ABG PH Result 7.43 (7.35-7.45); Arterial Blood Gas Hematocrit 37.3 % (37-47); Base Excess ABG 16.1 mmol/L (-2.0-2.0); Blood Gas Operator Identificat JB; Blood Gas Sample Type Arterial; HCO3 ABG 43.4 mmol/L (22-26); PO2 ABG 75.6 mmHg (80.0-100.0)
[2021-03-01 05:42] LABS: Oxygen Device VENT
[2021-03-01 05:44] LABS: ABG PCO2 64.9 mmHg (35-45)
[2021-03-01 05:45] LABS: Basophils # 0.1 10^3/uL (0.0-0.1); Basophils % 0.5 %; Hematocrit 39.4 % (37.0-47.0); Lymphocytes # 1.2 10^3/uL (0.8-4.8); Lymphocytes % 7.3 %; Mean Corpuscular HGB Conc 30.5 g/dL (30.0-36.0); Mean Corpuscular Hemoglobin 32.1 pg (28.0-34.0); Mean Corpuscular Volume 105.3 fL (81-99); Mean Platelet Volume 10.6 fL (7.4-10.4); Monocytes # 1.3 10^3/uL (0.2-0.9); Neutrophils % 80.5 %; Nucleated Red Blood Cells % 0 %; Platelet Count 279 10^3/cmm (130-400); Red Blood Count 3.74 10^6/uL (4.1-5.3); White Blood Count 15.8 10^3/uL (4.0-10.0)
--- NOTE | 2021-03-01 06:00 | XRR_ITS ---
PROCEDURE INFORMATION: Exam: XR Chest Exam date and time: 03/01/2021 5:02 AM Age: 50 years old Clinical indication: Condition or disease; Lung condition and disease; Respiratory failure; Status not specified; Patient HX: Intubated; Additional info: Hypoxia TECHNIQUE: Imaging protocol: XR of the chest Views: 1 view. COMPARISON: CR XR chest 1V portable [id number] 02/28/2021 8:37 AM FINDINGS: Tubes, catheters and devices: There is an endotracheal tube present with tip approximately 2.7 cm above the expected location of the marco a. An enteric tube extends down into the stomach and off of the image. Lungs: There is hyperlucency and architectural changes in the upper lung zones compatible with emphysema. No pneumonia or pulmonary edema. Pleural spaces: No pleural effusion or pneumothorax. Heart/Mediastinum: The cardiac silhouette is not enlarged. The mediastinal contours are normal. Bones/joints: No acute osseous abnormality. XR/XR chest 1V portable [id number] IMPRESSION: 1. Endotracheal and enteric tubes as described. 2. Emphysema.
[2021-03-01 06:20] LABS: Alanine Aminotransferase 512 U/L (0-33); Albumin Level 3.5 g/dL (3.5-5.2); Alkaline Phosphatase 61 IU/L (35-105); Anion Gap 8.7 (5-19); Aspartate Amino Transferase 107 U/L (0-32); Blood Urea Nitrogen 32 mg/dL (6-20); Calcium 9.1 mg/dL (8.5-10.5); Carbon Dioxide 39 mmol/L (22-29); Chloride 103 mmol/L (98-107); Globulin 2.3 g/dL (1.3-4.6); Glomerular Filtration Rate 105.8 mL/min (90-130); Glucose 137 mg/dL (65-115); Osmolality Calculated 311 mOsm/kg (285-295); Potassium 4.7 mmol/L (3.5-5.1); Sodium 146 mmol/L (136-145); Total Bilirubin 0.4 mg/dL (0.15-1.2); Total Protein 5.8 g/dL (6.6-8.7)
[2021-03-01 06:21] LABS: C Reactive Protein 0.7 mg/L (0.0-4.9); Magnesium 2.5 mg/dL (1.7-2.3); Phosphorus 2.6 mg/dL (2.5-4.5)
[2021-03-01 07:12] LABS: NT Pro B Type Natriuretic Pept 4617 pg/mL (0-125); Procalcitonin 0.08 ng/mL (0-0.5)
[2021-03-01] MEDS: budesonide 0.5 mg/2 mL Neb INHALATION ×2 (07:26→20:18)
--- NOTE | 2021-03-01 09:07 | PC.NURSE ---
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 Versed decreased to 1.5 mg/hr it was set on 3 mg\hr upon initial assessment this am. Pt able to respond and shake her head up and down when asked if she was in pain.
[2021-03-01] MEDS: enoxaparin 80 mg/0.8 mL Syringe 70 MG SUBCUT ×2 (09:36→20:54)
[2021-03-01] MEDS: FUROsemide 10 mg/mL SDV 10mL 60 MG IVP (09:36)
[2021-03-01] MEDS: cefTRIAXone 1,000 MG in dextrose 5 % 100 ML 200 MG IV (09:37)
[2021-03-01] MEDS: amlodipine 10 mg Tablet PO (09:37)
[2021-03-01] MEDS: famotidine 20 mg/2 mL INJ IVP (13:18)
--- NOTE | 2021-03-01 14:28 | PM.PN ---
Subjective Subjective: Interval history: Patient was examined this morning, no acute events overnight, remains afebrile, normotensive, she is up 150 of fentanyl, 1.5 from Precedex, is on 2 of Versed, this morning ABG shows a pH of 7.43, PCO2 64.9, chest x-ray this morning shows some pulmonary vascular congestion, Vitals/I&O/Wt Last Vital Signs Temp 99.5 F 03/01/21 09:45 Pulse 100 03/01/21 14:15 Resp 20 H 03/01/21 13:51 BP 132/85 03/01/21 10:45 Pulse Ox 97 03/01/21 14:15 02/28/21 03/01/21 03/01/21 22:59 06:59 14:59 Intake Total 933.21 / 2839.493 202.538 / 3042.031 1243.274 / 1243.274 Output Total 600 / 2400 1000 / 3400 250 / 250 Balance 333.21 / 439.493 -797.462 / -357.969 993.274 / 993.274 Weight last 48 hrs Weight 69.995 kg Weight 76.204 kg Physical Exam Narrative: EXAM NARRATIVE: Intubated, sedated, Eye: GENERAL EYE: appearance normal, both eyes and all related structures Neck/C-Spine: COMMON NORMALS: no lymphadenopathy and no JVD Chest: COMMONS NORMALS: normal inspection of the chest Resp: COMMON NORMALS: normal respiratory effort and No use of accessory muscles EFFORT & INSPECTION: Yes labored AUSCULTATION: wheezes OTHER: Barrel chested Cardio: COMMON NORMALS: no JVD, regular rate, regular rhythm, S1 normal heart sound present and S2 normal heart sound present RATE: regular rate RHYTHM: regular rhythm HEART SOUNDS: S1 normal heart sound present and S2 normal heart sound present GI: COMMON NORMALS: Normal to inspection, nondistended, normoactive bowel sounds present, Soft to palpation, non-tender and No hepatosplenomegaly present PALPATION: Yes Soft to palpation and Yes No hepatosplenomegaly present Extremity: COMMON NORMALS: capillary refill normal, no clubbing, cyanosis or edema and no pedal edema Neuro: OTHER: Intubated, sedated Urinary Catheter Management^: Walters: Cath Placed During This Visit: yes Reason for Continuing Indwelling Catheter: Accurate Measurement of Urinary Output in Critically Ill Patients Urinary Catheter Date of Insertion: 02/24/21 Urinary Catheter Time of Insertion: 21:30 Data : 03/01/21 04:52 03/01/21 04:52 Micro: Microbiology 02/23/21 22:14 Blood Culture - Final Blood NO GROWTH AFTER 5 DAYS 02/23/21 22:10 Blood Culture - Final Blood NO GROWTH AFTER 5 DAYS A&P Assessment and plan (1) Acute exacerbation of chronic obstructive pulmonary disease (COPD): -Secondary to COPD, hypercarbic respiratory failure, pneumonia -Over the weekend has had issues with auto PEEP, breathing over ventilator, bronchospasms -Currently pH 7.43, PCO2 64.9 -Will attempt sedation vacation trial today, extubation today, slowly wean off Versed and fentanyl, extubate on Precedex monitor mentation closely, monitor for tachypnea -Patient's was notified that there is a high risk that she might be reintubated after trial of extubation, and high risk that she might require a tracheostomy, he voiced understanding, all questions answered, agreed to proceed -Intubated, sedated, ventilator, numerous PEEP, minimize FiO2, Daily spontaneous weaning trials -Art line in place, central line in place -Currently off pressors -Currently on Versed, fentanyl, Precedex -Off paralytics -Solu-Medrol 80 every 6 hours -Continue tube feeds, blood sugars every 4 hours, maintain blood sugar 140-180 -- cardiac echo should was of poor quality study, moderately reduced EF, will give 1 dose of Lasix 40 mg this morning -Follow alpha-1 antitrypsin -Continue Rocephin and azithromycin -Follow sputum cultures, blood cultures -Xopenex, Pulmicort -Pepcid for GI prophylaxis -Lovenox for GI prophylaxis -Pulmonary on consult -Prognosis guarded, status is stable -Discussed with at bedside, he agrees to continue interventions, plan on sedation vacation trial today, extubation today Status: Acute (2) Acute on chronic respiratory failure with hypoxia and hypercapnia: Status: Acute (3) Hypernatremia: Status: Acute (4) Community acquired pneumonia: Follow-up sputum, blood cultures. Continue antibiotics. Status: Acute (5) Sepsis: Status: Acute (6) Smoking addiction: Continue to encourage cessation. 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
--- NOTE | 2021-03-01 15:28 | P.PN_ITS ---
Subjective Subjective: Interval history: The patient was seen and examined multiple times today. Overnight the patient did well. She has completely been compliant. This morning her sedation was titrated optimally. Eventually the patient did well on pressure support ventilation and was extubated to BiPAP. The patient seems comfortable and seems to be doing well. Her echocardiogram yesterday revealed moderate reduction of ejection fraction. The patient is on Lasix. Medications: Reviewed: Yes Vitals/I&O/Wt Last Vital Signs Temp 99.5 F 03/01/21 09:45 Pulse 95 03/01/21 15:18 Resp 18 03/01/21 15:12 BP 132/85 03/01/21 10:45 Pulse Ox 94 03/01/21 15:17 03/01/21 03/01/21 03/01/21 06:59 14:59 22:59 Intake Total 202.538 / 3042.031 1243.274 / 1243.274 Output Total 1000 / 3400 250 / 250 Balance -797.462 / -357.969 993.274 / 993.274 Weight last 48 hrs Weight 154 lb 5 oz Weight 168 lb Physical Exam Narrative: EXAM NARRATIVE: General: The patient was intubated and sedated when I examined her Neck: No JVD Respiratory: Inspection: Barrel-shaped chest Auscultation: Reduced breath sound bilaterally, no crackles or wheezing occasional rhonchi Cardiovascular: Regular rate and rhythm, S1-S2 present, distant heart sound, no murmur, no peripheral edema. Abdomen: Soft, nontender, nondistended, absent bowel sound Musculoskeletal: No obvious joint deformity Skin: No rash Neuro: The patient was intermittently responsive Urinary Catheter Management^: Walters: Cath Placed During This Visit: yes Reason for Continuing Indwelling Catheter: Accurate Measurement of Urinary Out put in Critically Ill Patients Urinary Catheter Date of Insertion: 02/24/21 Urinary Catheter Time of Insertion: 21:30 Data : 03/01/21 04:52 03/01/21 04:52 Micro: Microbiology 02/23/21 22:14 Blood Culture - Final Blood NO GROWTH AFTER 5 DAYS 02/23/21 22:10 Blood Culture - Final Blood NO GROWTH AFTER 5 DAYS Attestation for Other Data: I personally reviewed and interpreted the following: Other data: I have reviewed the laboratory, microbiologic and radiologic data. Patient has mild leukocytosis and mild hyponatremia. Chest x-ray obtained this morning did not reveal any evidence of pneumonia or pulmonary vascular congestion. A&P Assessment and plan (1) Acute exacerbation of chronic obstructive pulmonary disease (COPD): I am going to reduce the dose of Solu-Medrol to 40 mg IV daily. We will continue with DuoNeb and Pulmicort nebulization. The patient is on antibiotic. Will complete a 7-day course. Status: Acute (2) Acute on chronic respiratory failure with hypoxia and hypercapnia: The patient was extubated to BiPAP today. She will benefit from BiPAP at nighttime. We could try a BiPAP set up of 10/5 centimeters of water. I will follow up with the patient as outpatient and optimize her therapy. 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
[2021-03-01] MEDS: sodium chloride 0.9% 500 ML IV (19:37)
[2021-03-02] VITALS (55 sets, daily range): BP systolic 106–158; BP diastolic 73–111; PULSE 75–113; RESP 12–24; TEMP 36.7–36.8; O2SAT 84–97
[2021-03-02] MEDS: ondansetron 2 mg/ML SDV 2 mL 4 MG IVP ×2 (00:38→02:24)
--- NOTE | 2021-03-02 00:44 | PC.NURSE ---
Patient was on bipap, this nurse went to room and took bipap off and offered a drink for dry mouth, after a drink patient became nauseous and progectile vomited a few times. PRN order for zofran received from Dr. Mckeon and administered per JAN. Offering patient ice chips until nausea resides. Continue care.
[2021-03-02] MEDS: famotidine 20 mg/2 mL INJ IVP ×2 (00:48→15:59)
[2021-03-02] MEDS: ipratropium 0.5 mg/2.5 mL Neb INHALATION ×6 (03:25→23:50)
[2021-03-02] MEDS: levalbuterol 1.25 mg/3 mL Neb INHALATION ×6 (03:25→23:49)
[2021-03-02 03:55] LABS: Basophils # 0.2 10^3/uL (0.0-0.1); Basophils % 0.7 %; Eosinophils % 0.2 %; Hemoglobin 14.2 g/dL (11.5-15.3); Lymphocytes # 2.1 10^3/uL (0.8-4.8); Lymphocytes % 8.9 %; Mean Corpuscular HGB Conc 30.2 g/dL (30.0-36.0); Mean Corpuscular Volume 102.6 fL (81-99); Monocytes # 2.4 10^3/uL (0.2-0.9); Monocytes % 9.9 %; Neutrophils # 18.28 10^3/uL (1.8-7.7); Neutrophils % 75.9 %; Nucleated Red Blood Cells % 0 %; Platelet Count 329 10^3/cmm (130-400); Red Blood Count 4.58 10^6/uL (4.1-5.3); White Blood Count 24.1 10^3/uL (4.0-10.0)
[2021-03-02 04:19] LABS: Alanine Aminotransferase 395 U/L (0-33); Albumin Level 3.6 g/dL (3.5-5.2); Alkaline Phosphatase 59 IU/L (35-105); Anion Gap 8.8 (5-19); Aspartate Amino Transferase 60 U/L (0-32); Blood Urea Nitrogen 24 mg/dL (6-20); Chloride 96 mmol/L (98-107); Globulin 2.3 g/dL (1.3-4.6); Glomerular Filtration Rate 130.6 mL/min (90-130); Glucose 114 mg/dL (65-115); Osmolality Calculated 301 mOsm/kg (285-295); Potassium 3.8 mmol/L (3.5-5.1); Sodium 143 mmol/L (136-145); Total Bilirubin 0.8 mg/dL (0.15-1.2); Total Protein 5.9 g/dL (6.6-8.7)
[2021-03-02 04:25] LABS: C Reactive Protein 1.5 mg/L (0.0-4.9); Magnesium 2.5 mg/dL (1.7-2.3); Phosphorus 3.1 mg/dL (2.5-4.5)
[2021-03-02 04:29] LABS: NT Pro B Type Natriuretic Pept 6763 pg/mL (0-125); Procalcitonin 0.08 ng/mL (0-0.5)
[2021-03-02 04:36] LABS: Carbon Dioxide 42 mmol/L (22-29)
[2021-03-02 05:27] LABS: ABG PH Result 7.47 (7.35-7.45); Arterial Blood Gas Hematocrit 44.9 % (37-47); Base Excess ABG 19.3 mmol/L (-2.0-2.0); Blood Gas Operator Identificat JB; Blood Gas Sample Site Not specified; Blood Gas Sample Type Arterial; HCO3 ABG 47.1 mmol/L (22-26); Oxygen Device NC
[2021-03-02 05:28] LABS: ABG PCO2 65.1 mmHg (35-45)
--- NOTE | 2021-03-02 05:56 | PC.NURSE ---
Two episodes of N/V this shift. Uneventful shift. Continue care.
[2021-03-02] MEDS: budesonide 0.5 mg/2 mL Neb INHALATION ×2 (07:38→19:32)
--- NOTE | 2021-03-02 07:53 | XR_ITS ---
WS: [id number] Portable AP upright chest, 03/02/2021 Clinical Data: sob Comparison: Portable chest, 03/01/2021 Findings: No nodules, masses or effusions are seen. The heart is normal. The pulmonary vascularity is not increased. No pneumonia or pneumothorax is seen. The endotracheal tube and nasogastric tube have been removed. The diaphragms are flattened. There is diminished opacity in the upper lobes. Monitor leads are on the chest wall. XR/XR chest 1V portable [id number] Impression: Hyperinflation and emphysematous change of the upper lobes.
[2021-03-02] MEDS: enoxaparin 80 mg/0.8 mL Syringe 70 MG SUBCUT ×2 (09:10→20:32)
[2021-03-02] MEDS: cefTRIAXone 1,000 MG in dextrose 5 % 100 ML 200 MG IV (09:11)
[2021-03-02] MEDS: amlodipine 10 mg Tablet PO (09:11)
--- NOTE | 2021-03-02 10:28 | PC.CHAP ---
Pastoral Care Encounter/Spiritual Assessment Type of Contact [] Declined security and compliance project manager visit [] Patient/Family/Request visit [] Outpatient visit [] Follow-up visit [] Physician referral [] Code/Alert [x] Routine visit [] Staff referral [] Actively dying [] Patient sleeping [] Family support [] [] Out of room [] Palliative care [] [] Receiving care in room [] Pre-surgical visit [] Trauma [] Long length of stay [x] ICU visit [] Other: Relational/Emotional Strength [] Patient feels connected with others/family/visitors/staff [] Distress [] Loneliness/isolation [] Abandonment Spirituality of Patient [] Person of Sia [] Attends Adventist of their Sia [] Believes in Prayer [] Reads Bible or Rastafarian materials [] There are Spiritual issues to be addressed Embedded Software Manager Interventions [x] Prayer [] Active listening [] Non-anxious presence [] Spiritual/emotional support [] Crisis/trauma care [] Spiritual counseling [] Bereavement support [] Provided bereavement packet [] Provided Bible/devotional materials [] Provided toy/stuffed animal, coloring book to patient or family member [] Provided Communion [] Anointing/Iva [] Salvation [x] Completed spiritual assessment [] Other: Impact on Illness or Injury [] Angry [] Fearful [] Anxious [] Often cries [] Exhaustion [] Unable to work [] Unable to attend evangelical [] Unable to walk/stand [] Unable to read [] Unable to drive [] Unable to eat/drink [] Unable to sleep [] Unable to be with family [] Patient intubated [] Other: Summary Time spent with patient
--- NOTE | 2021-03-02 12:00 | PC.NURSE ---
ART line discontinued per orders. Cath tip intact. PRessure held for 8 min
--- NOTE | 2021-03-02 13:10 | PM.PN ---
Subjective Subjective: Interval history: This morning patient was examined, her also is at bedside, she is on 6 L, still has some complaints of shortness of breath and wheezing, no nausea, no vomiting, no lightheadedness, no dizziness, no chest pain, she tells me that she has never seen a lung doctor, she smoked for all her life, she does see Dr. Tavarez as outpatient, uses albuterol and a nebulizer as outpatient, she does not have a cardiovascular history, no history of stenting Vitals/I&O/Wt Last Vital Signs Temp 98.1 F 03/02/21 08:00 Pulse 97 03/02/21 12:00 Resp 24 H 03/02/21 12:00 BP 130/103 03/02/21 12:00 Pulse Ox 93 03/02/21 12:00 03/01/21 03/02/21 03/02/21 22:59 06:59 14:59 Intake Total 542.459 / 1785.733 270 / 270 Output Total 1350 / 3400 1000 / 4400 275 / 275 Balance -807.541 / -1614.267 -1000 / -2614.267 -5 / -5 Weight last 48 hrs Weight 65.062 kg Weight 69.995 kg Physical Exam Const: COMMON NORMALS: no acute distress and patient oriented x3 ORIENTATION/CONSCIOUSNESS: Yes awake, Yes oriented to person and Yes oriented to place; not oriented to time HENMT: COMMON NORMALS: normocephalic HEAD & SCALP: normocephalic Neck/C-Spine: COMMON NORMALS: no JVD Resp: COMMON NORMALS: normal respiratory effort, No retractions and No use of accessory muscles AUSCULTATION: wheezes OTHER: Barrel chested Cardio: COMMON NORMALS: no JVD, regular rate, regular rhythm, S1 normal heart sound present and S2 normal heart sound present RATE: regular rate RHYTHM: regular rhythm HEART SOUNDS: S1 normal heart sound present and S2 normal heart sound present GI: COMMON NORMALS: Normal to inspection, nondistended, normoactive bowel sounds present, Soft to palpation, non-tender, No hepatosplenomegaly present, no masses and no bruits PALPATION: Yes Soft to palpation and Yes No hepatosplenomegaly present Extremity: COMMON NORMALS: capillary refill normal, no clubbing, cyanosis or edema, no calf tenderness and no pedal edema Neuro: COMMON NORMALS: patient oriented x3 SENSORIUM/ORIENTATION: Yes oriented to person, Yes oriented to place and No oriented to time Psych: COMMON NORMALS: mental status grossly normal Urinary Catheter Management^: Walters: Cath Placed During This Visit: yes Reason for Continuing Indwelling Catheter: Accurate Measurement of Urinary Output in Critically Ill Patients Urinary Catheter Date of Insertion: 02/24/21 Urinary Catheter Time of Insertion: 21:30 Data : 03/02/21 03:41 03/02/21 03:41 A&P Assessment and plan (1) Acute exacerbation of chronic obstructive pulmonary disease (COPD): -Secondary to COPD, hypercarbic respiratory failure, pneumonia -Successfully extubated yesterday onto BiPAP -Art line in place will remove, continue central line in place -Currently off pressors -Currently on Precedex -Continue BiPAP schedule during the night, BiPAP as needed during the day, oxygen therapy during the day -Solu-Medrol 40 mg every 12 hours -Currently in a clinical diet -cardiac echo should was of poor quality study, moderately reduced EF -Follow alpha-1 antitrypsin -Continue Rocephin and azithromycin -Follow sputum cultures, blood cultures -Xopenex, Pulmicort -Pepcid for GI prophylaxis -Lovenox for GI prophylaxis -Pulmonary on consult -Prognosis guarded, status is stable -Discussed with at bedside, continue to monitor in the ICU, continue antibiotics, continue to monitor respiratory status closely, hold off on diuretics as alkalotic Status: Acute (2) Acute on chronic respiratory failure with hypoxia and hypercapnia: Status: Acute (3) Hypernatremia: Status: Acute (4) Community acquired pneumonia: Follow-up sputum, blood cultures. Continue antibiotics. Status: Acute (5) Sepsis: Status: Acute (6) Smoking addiction: Continue to encourage cessation. Status: Acute (7) Deep vein thrombosis, upper right extremity: Patient has a cephalic vein DVT, on therapeutic Lovenox, arterial line removed Status: Acute Additional A&P Information Full code DVT prophylaxis Lovenox Attestations Medical Necessity Statement*: Patient requires hospitalization, for acute hypercarbic respiratory failure, ICU, critical care time spent over 50 minutes Procedures Arterial Line Size (Gauge): 20 Coding Level of Care Code Acute Senior It Specialist for aNyeli Dawkins Diagnoses Acute exacerbation of chronic obstructive pulmonary disease (COPD) J44.1 Acute on chronic respiratory failure with hypoxia and hypercapnia J96.21; J96.22 Hypernatremia E87.0 Community acquired pneumonia J18.9 Sepsis A41.9 Smoking addiction F17.200 Deep vein thrombosis, upper right extremity I82.621
--- NOTE | 2021-03-02 15:41 | P.PN_ITS ---
Subjective Subjective: Interval history: The patient was seen and examined. She appears a little slow to respond but overall looked comfortable. Her was present at bedside. Medications: Reviewed: Yes Vitals/I&O/Wt Last Vital Signs Temp 98.1 F 03/02/21 08:00 Pulse 94 03/02/21 15:14 Resp 18 03/02/21 15:05 BP 130/103 03/02/21 12:00 Pulse Ox 95 03/02/21 15:05 03/02/21 03/02/21 03/02/21 06:59 14:59 22:59 Intake Total 270 / 270 Output Total 1000 / 4400 275 / 275 Balance -1000 / -2614.267 -5 / -5 Weight last 48 hrs Weight 143 lb 7 oz Weight 154 lb 5 oz Physical Exam Narrative: EXAM NARRATIVE: General: The patient is able to follow commands and answer questions, appears to be a slow to respond Neck: No JVD Respiratory: Inspection: Barrel-shaped chest Auscultation: Reduced breath sound bilaterally, no crackles or wheezing occasional rhonchi Cardiovascular: Regular rate and rhythm, S1-S2 present, distant heart sound, no murmur, no peripheral edema. Abdomen: Soft, nontender, nondistended, absent bowel sound Musculoskeletal: No obvious joint deformity Skin: No rash Neuro: The patient was intermittently responsive Urinary Catheter Management^: Walters: Cath Placed During This Visit: yes Reason for Continuing Indwelling Catheter: Accurate Measurement of Urinary Output in Critically Ill Patients Urinary Catheter Date of Insertion: 02/24/21 Urinary Catheter Time of Insertion: 21:30 Data : 03/02/21 03:41 03/02/21 03:41 Attestation for Other Data: I personally reviewed and interpreted the following: Other data: I have reviewed her laboratory, microbiologic and radiologic data. The patient had good diuresis with Lasix. Has developed mild metabolic alkalosis from diuresis A&P Assessment and plan (1) Acute exacerbation of chronic obstructive pulmonary disease (COPD): When ready, the patient can be switched to oral prednisone. We can do a tapering course of prednisone over the next 7 to 10 days. We will continue with DuoNeb and Pulmicort nebulization. The patient can be discharged on DuoNeb and Pulmicort if that would be easier for her to use or to obtain for insurance reasons. The patient is on antibiotic. Will complete a 7-day course. Status: Acute (2) Acute on chronic respiratory failure with hypoxia and hypercapnia: Patient is overall doing okay. Currently she is on 6 L oxygen. She should be using BiPAP at night and upon discharge she should continue to use that at nighttime at least. I will be following up with her as outpatient. 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
[2021-03-02] MEDS: lisinopril 20 mg Tablet PO (16:00)
--- NOTE | 2021-03-02 18:04 | PC.NURSE ---
Urine noticed to be a red cintia aid color. Dr. Grant notified. Pt is on an increased dose of Lovenox for blood clot in right arm. order for H&H received.
[2021-03-02 20:06] LABS: Hematocrit 48.1 % (37.0-47.0); Hemoglobin 15.1 g/dL (11.5-15.3)
--- NOTE | 2021-03-02 21:25 | PC.NURSE ---
ASSUMING CARE 1900 Bedside report done with FLEX Posadas. Patient is resting in bed on 6 L nasal cannula. Precedex is running at 0.2 mcg/hour. Patient is alert and oriented x 4. Hematuria noted in melton bag, Katharina states Dr. Grant notified and H&H ordered. Right femoral central line in place and returns blood.
--- NOTE | 2021-03-02 21:32 | PC.NURSE ---
BIPAP Change of shift RN reports that Dr. Grant would like patient to wear BIPAP throughout the night tonight. Respiratory placed patient on BIPAP, 16/8, Rate 14, FiO2 35%.
[2021-03-03] VITALS (39 sets, daily range): BP systolic 103–150; BP diastolic 72–106; PULSE 89–112; RESP 15–26; TEMP 35.8–37.3; O2SAT 91–99
[2021-03-03] MEDS: famotidine 20 mg/2 mL INJ IVP ×2 (00:49→13:55)
[2021-03-03 03:52] LABS: Basophils # 0.2 10^3/uL (0.0-0.1); Basophils % 0.7 %; Eosinophils % 0.1 %; Hematocrit 46.4 % (37.0-47.0); Hemoglobin 14.6 g/dL (11.5-15.3); Lymphocytes % 8.3 %; Mean Corpuscular HGB Conc 31.5 g/dL (30.0-36.0); Mean Corpuscular Hemoglobin 31.9 pg (28.0-34.0); Mean Corpuscular Volume 101.5 fL (81-99); Mean Platelet Volume 10.7 fL (7.4-10.4); Monocytes # 2.1 10^3/uL (0.2-0.9); Neutrophils # 18.22 10^3/uL (1.8-7.7); Neutrophils % 76.9 %; Nucleated Red Blood Cells % 0 %; Platelet Count 340 10^3/cmm (130-400); Red Blood Count 4.57 10^6/uL (4.1-5.3); Red Cell Distribution Width 11.9 % (12.1-15.1); White Blood Count 23.7 10^3/uL (4.0-10.0)
[2021-03-03 04:12] LABS: C Reactive Protein 15.5 mg/L (0.0-4.9); Magnesium 2.5 mg/dL (1.7-2.3); Phosphorus 3.3 mg/dL (2.5-4.5)
[2021-03-03 04:13] LABS: Alanine Aminotransferase 306 U/L (0-33); Albumin Level 3.5 g/dL (3.5-5.2); Alkaline Phosphatase 66 IU/L (35-105); Anion Gap 9.1 (5-19); Aspartate Amino Transferase 58 U/L (0-32); Blood Urea Nitrogen 22 mg/dL (6-20); Calcium 10.1 mg/dL (8.5-10.5); Chloride 96 mmol/L (98-107); Globulin 2.5 g/dL (1.3-4.6); Glomerular Filtration Rate 105.8 mL/min (90-130); Glucose 125 mg/dL (65-115); Osmolality Calculated 301 mOsm/kg (285-295); Potassium 4.1 mmol/L (3.5-5.1); Sodium 143 mmol/L (136-145); Total Bilirubin 0.9 mg/dL (0.15-1.2)
[2021-03-03 04:19] LABS: Carbon Dioxide 42 mmol/L (22-29); NT Pro B Type Natriuretic Pept 4621 pg/mL (0-125)
[2021-03-03] MEDS: levalbuterol 1.25 mg/3 mL Neb INHALATION ×6 (04:20→23:48)
[2021-03-03] MEDS: ipratropium 0.5 mg/2.5 mL Neb INHALATION ×6 (04:20→23:48)
[2021-03-03 05:07] LABS: ABG PH Result 7.47 (7.35-7.45); Arterial Blood Gas Hematocrit 46.4 % (37-47); Base Excess ABG 17.7 mmol/L (-2.0-2.0); Blood Gas Sample Type Arterial; HCO3 ABG 45.3 mmol/L (22-26); PO2 ABG 98.2 mmHg (80.0-100.0)
[2021-03-03 05:08] LABS: Blood Gas Sample Site Brachial, right; Oxygen Device BIPAP
--- NOTE | 2021-03-03 05:30 | PC.NURSE ---
SHIFT SUMMARY Patient has had uneventful shift. Patient has worn BIPAP at 35% for a total of about 7 hours this shift. Precedex weaned off from 0.2 mcg/kg/hour. Patient has remained alert and oriented x 4 this shift and has complained of being uncomfortable a couple of times with comfort after repositioning. Patient requests nurse to do things for her and patient is educated and encouraged on importance of attempting to get stronger and become more independent. 700 mL urine output, hematuria appears better from change of shift. Hemoglobin and hematocrit remain stable.
[2021-03-03] MEDS: budesonide 0.5 mg/2 mL Neb INHALATION ×2 (07:38→20:16)
[2021-03-03] MEDS: enoxaparin 80 mg/0.8 mL Syringe 70 MG SUBCUT ×2 (09:48→22:03)
[2021-03-03] MEDS: amlodipine 10 mg Tablet PO (09:48)
[2021-03-03] MEDS: cefTRIAXone 1,000 MG in dextrose 5 % 100 ML 200 MG IV (09:49)
[2021-03-03] MEDS: lisinopril 20 mg Tablet PO (09:49)
[2021-03-03] MEDS: nystatin 100,000 unit/mL UDC 5 mL 100000 UNIT PO ×4 (09:49→22:04)
--- NOTE | 2021-03-03 10:43 | PC.CHAP ---
Pastoral Care Encounter/Spiritual Assessment Type of Contact [] Declined sports medicine trainer visit [] Patient/Family/Request visit [] Outpatient visit [] Follow-up visit [] Physician referral [] Code/Alert [x] Routine visit [] Staff referral [] Actively dying [] Patient sleeping [] Family support [] [] Out of room [] Palliative care [] [] Receiving care in room [] Pre-surgical visit [] Trauma [] Long length of stay [x] ICU visit [] Other: Relational/Emotional Strength [] Patient feels connected with others/family/visitors/staff [] Distress [] Loneliness/isolation [] Abandonment Spirituality of Patient [] Person of Sia [] Attends Buddhist of their Sia [] Believes in Prayer [] Reads Bible or Islam materials [] There are Spiritual issues to be addressed Machine Engraver Interventions [x] Prayer [x] Active listening [x] Non-anxious presence [x] Spiritual/emotional support [] Crisis/trauma care [] Spiritual counseling [] Bereavement support [] Provided bereavement packet [] Provided Bible/devotional materials [] Provided toy/stuffed animal, coloring book to patient or family member [] Provided Communion [] Anointing/[place] [] Salvation [x] Completed spiritual assessment [] Other: Impact on Illness or Injury [] Angry [] Fearful [] Anxious [] Often cries [] Exhaustion [] Unable to work [] Unable to attend scientologist [] Unable to walk/stand [] Unable to read [] Unable to drive [] Unable to eat/drink [] Unable to sleep [] Unable to be with family [] Patient intubated [] Other: Summary patient feeling much stronger today... breathing starting to improve Time spent with patient 5 min
--- NOTE | 2021-03-03 12:16 | P.PN_ITS ---
Subjective Subjective: Interval history: This morning patient was seen, she according to nursing staff is quite fatigued, she does not have the energy to feed herself, remains afebrile overnight, she did use BiPAP overnight, patient tells me that she feels tired, fatigued, her shortness of breath has improved, she is feeling better, but she tells me she tires out easily, no chest pain, no palpitations, denies an urge to smoke Vitals/I&O/Wt Last Vital Signs Temp 96.4 F L 03/03/21 09:00 Pulse 99 03/03/21 11:44 Resp 20 H 03/03/21 11:30 BP 145/98 03/03/21 09:00 Pulse Ox 94 03/03/21 11:30 03/02/21 03/03/21 03/03/21 22:59 06:59 14:59 Intake Total 380 / 650 68.737 / 718.737 460 / 460 Output Total 1800 / 2075 Balance -1420 / -1425 68.737 / -1356.263 460 / 460 Weight last 48 hrs Weight 65.862 kg Weight 65.062 kg Physical Exam Const: COMMON NORMALS: no acute distress and patient oriented x3 HENMT: COMMON NORMALS: normocephalic HEAD & SCALP: normocephalic Neck/C-Spine: COMMON NORMALS: no JVD Resp: COMMON NORMALS: normal respiratory effort, No retractions and No use of accessory muscles AUSCULTATION: wheezes OTHER: Barrel chested Cardio: COMMON NORMALS: no JVD, regular rate, regular rhythm, S1 normal heart sound present and S2 normal heart sound present RATE: regular rate RHYTHM: regular rhythm HEART SOUNDS: S1 normal heart sound present and S2 normal heart sound present GI: COMMON NORMALS: Normal to inspection, nondistended, normoactive bowel sounds present, Soft to palpation, non-tender, No hepatosplenomegaly present, no masses and no bruits PALPATION: Yes Soft to palpation and Yes No he patosplenomegaly present Extremity: COMMON NORMALS: capillary refill normal, no clubbing, cyanosis or edema, no calf tenderness and no pedal edema Neuro: COMMON NORMALS: patient oriented x3 Psych: COMMON NORMALS: mental status grossly normal Urinary Catheter Management^: Walters: Cath Placed During This Visit: yes Reason for Continuing Indwelling Catheter: Accurate Measurement of Urinary Output in Critically Ill Patients Urinary Catheter Date of Insertion: 02/24/21 Urinary Catheter Time of Insertion: 21:30 Data : 03/03/21 03:23 03/03/21 03:23 A&P Assessment and plan (1) Acute exacerbation of chronic obstructive pulmonary disease (COPD): -Secondary to COPD, hypercarbic respiratory failure, pneumonia -Successfully extubated yesterday onto BiPAP -Central line in place -Currently off pressors -Currently off Precedex -Continue BiPAP schedule during the night, BiPAP as needed during the day, oxygen therapy during the day, patient needs BiPAP on discharge, would clinically benefit from BiPAP, for her COPD, reduce risk of exacerbations, hospitalizations -Solu-Medrol 40 mg every 24 hours -Advance diet as tolerated -cardiac echo should was of poor quality study, moderately reduced EF, will consult cardiology -Follow alpha-1 antitrypsin -Continue Rocephin and azithromycin -Follow sputum cultures, blood cultures, so far negative -Xopenex, Pulmicort -Pepcid for GI prophylaxis -Lovenox for GI prophylaxis -Pulmonary on consult -White blood cell count is 23.7, afebrile, is on antibiotic therapy, cultures n egative, will continue to monitor -Patient is alkalotic, had over 4 L of urine output, hold Lasix -Continue to monitor in ICU, PT OT, aggressive incentive spirometer, monitor respiratory status closely, likely de-escalate out of ICU the next 2448 hrs., will consult cardiology Status: Acute (2) Acute on chronic respiratory failure with hypoxia and hypercapnia: Status: Acute (3) Hypernatremia: Status: Acute (4) Community acquired pneumonia: Follow-up sputum, blood cultures. Continue antibiotics. Status: Acute (5) Sepsis: Status: Acute (6) Smoking addiction: Continue to encourage cessation. 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
[2021-03-03] MEDS: oxyCODONE 5 mg IR Tab/Cap PO (17:06)
--- NOTE | 2021-03-03 21:24 | P.CONIM_ITS ---
Providers/Reason For Consult Consulting Physican/Specialty*: Cardiology Reason for Consult*: New onset of heart failure, LV dysfunction, respiratory failure Attending Physician: Hansel Grant MD Primary Care Provider: Violeta Tavarez MD History of Present Illness History of Present Illness Radha Doe is a 50 year old female was admitted with COPD exacerbation and mixed picture of heart failure she was intubated diuresed given antibiotics and extubated. Left ventricle ejection fraction turned out to be moderately reduced by recent echocardiogram it is the reason we have been asked to assist in her care. Patient is not a good historian but he admits to continuous tobacco abuse which is going on for years. He denies any prior history of coronary artery disease or diabetes mellitus. He is not aware of prior history of congestive heart failure. According to her apart from COPD he does not have any other problem. Currently he appeared to be congested with chest tightness due to shortness of breath. Mostly she complains of expiratory difficulty. She has a lot of secretions. Review of Systems General: Reports: 10 or more systems reviewed and unremarkable except in HPI and below Narrative: Unable to assess Const: Reports: chills, body aches and fatigue Eyes: Denies: change in vision, blurry vision or eye redness ENMT: Denies: throat pain, swelling of lips/tongue, ear or mastoid pain or nasal congestion Card: Denies: chest pain, palpitations, irregular heart rhythm, edema, dyspnea on exertion or orthopnea Resp: Reports: dyspnea, productive cough, non-productive cough and wheezing GI: Denies: abdominal pain, diarrhea or GI cramping : Denies: flank pain, difficulty voiding, urinary frequency or urinary urgency Musc: Denies: neck pain, back pain, extremity pain, joint pain, joint redness, limited range of motion or muscle weakness Skin/Breast: Denies: rash, pruritus, erythema, skin pain or skin tenderness Neuro: Denies: headache(s), numbness in extremities, weakness in extremities, sensory changes, difficulty walking, dizziness, confusion or Slurred speech present Psych: Denies: anxiety or depression Endo: Denies: polyuria Jesus/Lymph: Denies: easy bruising All/Imm: Denies: urticaria, throat swelling or tongue swelling Meds/Allergies Home Medications and Allergies Home Medications Medication Instructions Recorded Confirmed Last Taken Type albuterol sulfate 2.5 mg INHALATION Q4H PRN 30 Days 02/03/21 02/23/21 Unknown Rx #540 ml albuterol sulfate 90 mcg/actuation 2 puff INHALATION Q6H PRN #8.5 g 02/03/21 02/23/21 02/23/21 Rx aerosol inhaler fluticasone 250 mcg-salmeterol 50 1 inh INHALATION Q12H #60 ea 02/03/21 02/23/21 02/23/21 Rx mcg/dose blistr powdr for inhalation prednisone 20 mg tablet 20 mg PO DAILY #30 tab 02/03/21 02/23/21 02/23/21 Rx ibuprofen 800 mg tablet 800 mg PO TID PRN #90 tab 02/07/21 02/23/21 Unknown Rx Allergies Allergy/AdvReac Type Severity Reaction Status Date / Time No Known Allergies Allergy Verified 02/23/21 20:32 Current Medications Current Medications Generic Name Dose Route Start Last Admin Trade Name Freq PRN Reason Stop Dose Admin Amlodipine Besylate 10 mg 02/28/21 09:00 03/03/21 09:48 Amlodipine 10 Mg Tablet PO 10 mg DAILY EDMUNDO Administration Budesonide 0.5 mg 02/25/21 08:00 03/03/21 20:16 Budesonide 0.5 Mg/2 Ml Neb INHALATION 0.5 mg BID.RESPIRATORY EDMUNDO Administration Enoxaparin Sodium 70 mg 03/01/21 08:30 03/03/21 09:48 Enoxaparin 80 Mg/0.8 Ml Syringe SUBCUT 70 mg Q12H EDMUNDO Administration Famotidine 20 mg 02/26/21 12:00 03/03/21 13:55 Famotidine 20 Mg/2 Ml Inj IVP 20 mg Q12H EDMUNDO Administration Furosemide 40 mg 03/02/21 08:00 03/02/21 08:51 Furosemide 10 Mg/Ml Sdv 4ml IVP Not Given Q24H EDMUNDO Dexmedetomidine HCl 400 mcg/ 104 mls @ 0 mls/hr 02/24/21 16:00 02/28/21 20:30 Sodium Chloride IV Infused .Q0M EDMUNDO Titration Protocol Per Protocol Azithromycin 500 mg/ Dextrose 250 mls @ 250 mls/hr 02/27/21 11:30 03/03/21 15:35 IV Infused Q24H EDMUNDO Infusion Protocol Ceftriaxone Sodium 1,000 mg/ 100 mls @ 100 mls/hr 02/28/21 09:00 03/03/21 15:35 Dextrose IV Infused DAILY EDMUNDO Infusion Protocol Dexmedetomidine HCl 1,000 mcg/ 260 mls @ 0 mls/hr 02/28/21 20:15 03/03/21 05:31 Sodium Chloride IV Infused .Q0M EDMUNDO Titration Protocol Per Protocol Ipratropium Colo 0.5 mg 02/27/21 12:00 03/03/21 20:15 Ipratropium 0.5 Mg/2.5 Ml Neb INHALATION 0.5 mg Q4H.RESPIRATORY EDMUNDO Administration Levalbuterol HCl 1.25 mg 02/27/21 12:00 03/03/21 20:16 Levalbuterol 1.25 Mg/3 Ml Neb INHALATION 1.25 mg Q4H.RESPIRATORY EDMUNDO Administration Levalbuterol HCl 1.25 mg 02/27/21 09:00 02/28/21 10:11 Levalbuterol 1.25 Mg/3 Ml Neb INHALATION 1.25 mg Q2H PRN Administration SHORTNESS OF BREATH Lisinopril 20 mg 03/02/21 13:30 03/03/21 09:49 Lisinopril 20 Mg Tablet PO 20 mg DAILY EDMUNDO Administration Methylprednisolone Sodium Succinate 40 mg 03/02/21 08:00 03/03/21 09:50 Methylprednisolone Sod Succ 40 Mg/Ml Inj IVP 40 mg Q24H EDMUNDO Administration Nystatin 100,000 unit 03/03/21 09:00 03/03/21 17:06 Nystatin 100,000 Unit/Ml Udc 5 Ml PO 100,000 unit QID EDMUNDO Administration Ondansetron HCl 4 mg 03/02/21 00:19 03/02/21 02:24 Ondansetron 2 Mg/Ml Sdv 2 Ml IVP 4 mg Q6H PRN Administration NAUSEA AND VOMITING Oxycodone HCl 5 mg 03/03/21 04:29 03/03/21 17:06 Oxycodone 5 Mg Ir Tab/Cap PO 5 mg Q6H PRN Administration MODERATE PAIN PFSH Acute PFSH: Medical History COPD (chronic obstructive pulmonary disease) Diverticular disease of intestine with perforation and abscess Surgical History H/O tubal ligation H/O: hysterectomy S/P excision of ganglion cyst Family History Father Diabetes Mother Diabetes Social History Smoking and tobacco status: current every day smoker cigarettes [ Other cigarette details: She smokes 4 to 5 cigarettes a day, heavy smoker in the past ] Alcohol intake: never Substance/Drug Use: never Housing: House Previous occupational history: Worked at [employer] Female Reproductive History: Date of last menstrual period: 11/26/14 Vitals/I&O/Wt Last Vital Signs Temp 96.4 F L 03/03/21 09:00 Pulse 95 03/03/21 20:19 Resp 18 03/03/21 20:19 BP 132/106 03/03/21 18:00 Pulse Ox 95 03/03/21 20:19 03/03/21 03/03/21 03/03/21 06:59 14:59 22:59 Intake Total 68.737 / 718.737 930 / 930 600 / 1530 Output Total 850 / 850 Balance 68.737 / -1356.263 930 / 930 -250 / 680 Weight last 48 hrs Weight 145 lb 3.2 oz Weight 143 lb 7 oz Physical Exam Narrative: EXAM NARRATIVE: GENERAL: Patient is alert, awake and oriented x3. NECK: No jugular vein distension. HEENT: No cyanosis. No icterus. No pallor. HEART: Regular S1 and S2. No murmur, rub or gallop. LUNGS: Clear to auscultate bilaterally. ABDOMEN: Soft, nontender and nondistended. Positive bowel sounds. No guarding, rebound or tenderness. CENTRAL NERVOUS SYSTEM: Grossly nonfocal. EXTREMITIES: Lower extremities without edema bilaterally. Urinary Catheter Management^: Walters: Cath Placed During This Visit: yes Reason for Continuing Indwelling Catheter: Accurate Measurement of Urinary Output in Critically Ill Patients Urinary Catheter Date of Insertion: 02/24/21 Urinary Catheter Time of Insertion: 21:30 A&P Assessment and plan (1) Acute systolic heart failure, first episode: Patient has mixed picture of new onset of acute systolic heart failure with LV dysfunction, it requires differentiation between ischemic versus nonischemic etiology as patient is moderate to high risk for multivessel coronary artery disease. Once euvolemic and recover from COPD exacerbation consider left heart cath for new LV dysfunction and heart failure. Continue current regimen with IV diuresis Status: Acute (2) Smoking addiction: Advised quitting smoking. Status: Acute (3) COPD (chronic obstructive pulmonary disease): As per pulmonary and medicine Status: Acute Qualifiers: COPD type: chronic bronchitis Chronic bronchitis type: simple Qualified Code(s): J41.0 - Simple chronic bronchitis Consult Attestations Medical Necessity Statement: Patient require continuation hospitalization for above defined care. 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
[2021-03-04] VITALS (49 sets, daily range): BP systolic 83–146; BP diastolic 62–95; PULSE 0–113; RESP 16–30; TEMP 36.7–37.3; O2SAT 90–98
[2021-03-04] MEDS: famotidine 20 mg/2 mL INJ IVP (00:42)
[2021-03-04] MEDS: ipratropium 0.5 mg/2.5 mL Neb INHALATION ×6 (03:42→23:31)
[2021-03-04] MEDS: levalbuterol 1.25 mg/3 mL Neb INHALATION ×6 (03:43→23:31)
[2021-03-04 04:08] LABS: Basophils # 0.2 10^3/uL (0.0-0.1); Basophils % 0.8 %; Eosinophils % 0.2 %; Hematocrit 44.7 % (37.0-47.0); Hemoglobin 14.2 g/dL (11.5-15.3); Lymphocytes % 9.7 %; Mean Corpuscular HGB Conc 31.8 g/dL (30.0-36.0); Mean Corpuscular Hemoglobin 31.8 pg (28.0-34.0); Mean Corpuscular Volume 100.2 fL (81-99); Mean Platelet Volume 11.3 fL (7.4-10.4); Monocytes # 2.2 10^3/uL (0.2-0.9); Neutrophils # 14.85 10^3/uL (1.8-7.7); Nucleated Red Blood Cells % 0 %; Platelet Count 308 10^3/cmm (130-400); Red Blood Count 4.46 10^6/uL (4.1-5.3); Red Cell Distribution Width 11.8 % (12.1-15.1); White Blood Count 20.3 10^3/uL (4.0-10.0)
[2021-03-04 04:31] LABS: NT Pro B Type Natriuretic Pept 3751 pg/mL (0-125)
[2021-03-04 04:38] LABS: Slide Review Slide Review Perform
--- NOTE | 2021-03-04 04:49 | PC.NURSE ---
ASSUMING CARE 1900 Patient is resting in bed on 4L nasal cannula. Patient is alert and oriented x 4 and is requesting a drink of water. Walters catheter in place and draining, hematuria is noticeably better compared to previous shift manager.
--- NOTE | 2021-03-04 04:55 | PC.NURSE ---
RESTLESS Patient began to tap her yankeur on her fan in her room to get nurses attention. Upon entering room patient states, Neno is trying to sign something for me out there. Patient was instructed that there was not a man named Neno and that out there was the nurses station and she would be informed of anything if it needed to be signed.
[2021-03-04 05:03] LABS: Alanine Aminotransferase 350 U/L (0-33); Albumin Level 3.4 g/dL (3.5-5.2); Alkaline Phosphatase 78 IU/L (35-105); Anion Gap 8.6 (5-19); Aspartate Amino Transferase 76 U/L (0-32); Blood Urea Nitrogen 17 mg/dL (6-20); Calcium 9.8 mg/dL (8.5-10.5); Carbon Dioxide 38 mmol/L (22-29); Chloride 98 mmol/L (98-107); Globulin 2.7 g/dL (1.3-4.6); Glomerular Filtration Rate 130.6 mL/min (90-130); Glucose 113 mg/dL (65-115); Magnesium 2.3 mg/dL (1.7-2.3); Osmolality Calculated 294 mOsm/kg (285-295); Phosphorus 2.6 mg/dL (2.5-4.5); Potassium 3.6 mmol/L (3.5-5.1); Sodium 141 mmol/L (136-145); Total Bilirubin 0.9 mg/dL (0.15-1.2); Total Protein 6.1 g/dL (6.6-8.7)
--- NOTE | 2021-03-04 06:26 | PC.NURSE ---
SHIFT SUMMARY Patient has remained alert and oriented x 4 this shift. Patient wore BIPAP at 35% for majority of shift and tolerated it well. 2 bowel movements and 1300 mL urine output with minimal hematuria that is much better than previous shift. Peripheral IV's attempted 5 times by 3 nurses, so right femoral central line could be taken out, but access could not be obtained on left arm and right arm is restricted due to cephalic clot. Dressing changed on central line and site cleansed with chloraprep tray.
--- NOTE | 2021-03-04 07:00 | XR_ITS ---
WS: [id number] PORTABLE CHEST HISTORY: sob COMPARISON: 03/02/2021 Hyperexpanded lungs with emphysematous changes in the upper lung coto. No pneumonia. Normal vascula ture. No pleural effusion or pneumothorax. Cardiac size: Normal. Mediastinum/Aorta: Normal mediastinum. No osseous abnormality seen. XR/XR chest 1V portable [id number] IMPRESSION: Marked emphysematous changes in the upper lung coto. No pneumonia.
[2021-03-04] MEDS: budesonide 0.5 mg/2 mL Neb INHALATION ×2 (07:26→20:23)
[2021-03-04] MEDS: predniSONE 20 mg Tablet 40 MG PO (08:25)
[2021-03-04] MEDS: aspirin 81 mg EC Tablet PO (08:25)
[2021-03-04] MEDS: atorvastatin 40 mg Tablet PO (08:25)
[2021-03-04] MEDS: FUROsemide 20 mg Tablet PO (08:25)
[2021-03-04] MEDS: amlodipine 10 mg Tablet PO (08:25)
[2021-03-04] MEDS: lisinopril 20 mg Tablet PO (08:25)
[2021-03-04] MEDS: enoxaparin 80 mg/0.8 mL Syringe 70 MG SUBCUT ×2 (08:26→20:47)
[2021-03-04] MEDS: nystatin 100,000 unit/mL UDC 5 mL 100000 UNIT PO ×4 (08:26→21:01)
[2021-03-04] MEDS: cefTRIAXone 1,000 MG in dextrose 5 % 100 ML 200 MG IV (08:28)
[2021-03-04] MEDS: azithromycin 250 mg Tablet PO (11:16)
--- NOTE | 2021-03-04 11:23 | PM.PN ---
Subjective Subjective: Interval history: Patient tells me she is doing well this morning, is on 4 L, was able to get up with physical therapy to the side of the bed, her appetite has improved, she still feels weak, tolerated the BiPAP well overnight, she tells me it is helping Vitals/I&O/Wt Last Vital Signs Temp 98.0 F 03/04/21 08:00 Pulse 96 03/04/21 11:07 Resp 20 H 03/04/21 11:02 BP 146/89 03/04/21 08:00 Pulse Ox 96 03/04/21 11:02 03/03/21 03/04/21 03/04/21 22:59 06:59 14:59 Intake Total 660 / 1590 350 / 350 Output Total 850 / 850 1300 / 2150 Balance -190 / 740 -1300 / -560 350 / 350 Weight last 48 hrs Weight 64.954 kg Weight 65.862 kg Physical Exam Const: COMMON NORMALS: no acute distress and patient oriented x3 HENMT: COMMON NORMALS: normocephalic HEAD & SCALP: normocephalic Neck/C-Spine: COMMON NORMALS: no JVD Resp: COMMON NORMALS: normal respiratory effort, No retractions and No use of accessory muscles AUSCULTATION: crackles Cardio: COMMON NORMALS: no JVD, regular rate, regular rhythm, S1 normal heart sound present and S2 normal heart sound present RATE: regular rate RHYTHM: regular rhythm HEART SOUNDS: S1 normal heart sound present and S2 normal heart sound present GI: COMMON NORMALS: Normal to inspection, nondistended, normoactive bowel sounds present, Soft to palpation, non-tender, No hepatosplenomegaly present, no masses and no bruits PALPATION: Yes Soft to palpation and Yes No hepatosplenomegaly present Extremity: COMMON NORMALS: capillary refill normal, no clubbing, cyanosis or edema, no calf tenderness and no pedal edema Neuro: COMMON NORMALS: patient oriented x3 Psych: COMMON NORMALS: mental status grossly normal Urinary Catheter Management^: Walters: Cath Placed During This Visit: yes Reason for Continuing Indwelling Catheter: Accurate Measurement of Urinary Output in Critically Ill Patients Urinary Catheter Date of Insertion: 02/24/21 Urinary Catheter Time of Insertion: 21:30 Data : 03/05/21 05:48 03/05/21 05:48 A&P Assessment and plan (1) Acute exacerbation of chronic obstructive pulmonary disease (COPD): -Secondary to COPD, hypercarbic respiratory failure, pneumonia -Successfully extubated -Central line in place -Currently off pressors -Currently off Precedex -Continue BiPAP schedule during the night, BiPAP as needed during the day, oxygen therapy during the day, patient needs BiPAP on discharge, would clinically benefit from BiPAP, for her COPD, reduce risk of exacerbations, hospitalizations -Prednisone 40 mg p.o. every 24 hours -Advance diet as tolerated -cardiac echo should was of poor quality study, moderately reduced EF, cardiology on consult -Follow alpha-1 antitrypsin -Continue Rocephin and azithromycin for a total of 7 days -Follow sputum cultures, blood cultures, so far negative -Xopenex, Pulmicort -Pepcid for GI prophylaxis -Lovenox for GI prophylaxis -Pulmonary on consult -Aspirin 81 mg, atorvastatin 40 mg, Lasix 20 mg -We will de-escalate out of ICU today, advised patient to sit up into a chair today, work with physical therapy, Status: Acute (2) Acute on chronic respiratory failure with hypoxia and hypercapnia: Status: Acute (3) Hypernatremia: Status: Acute (4) Community acquired pneumonia: Follow-up sputum, blood cultures. Continue antibiotics. Status: Acute (5) Sepsis: Status: Acute (6) Smoking addiction: Continue to encourage cessation. 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
--- NOTE | 2021-03-04 16:51 | PC.NURSE ---
Patient transferred from icu to med surg via bed. O2 in place at 3L via n/c. Stable at time of transfer. Receiving nurse at bedside. Denies c/o.
[2021-03-04] MEDS: famotidine 20 mg Tablet PO (17:53)
--- NOTE | 2021-03-04 21:37 | PM.PN ---
Subjective Subjective: Interval history: Today she is feeling better still shortness of breath when she walks she is coughing up sputum but getting better. She has been moved out of the unit. She denies any chest pain. Overall she thinks she is improving Medications: Reviewed: Yes Vitals/I&O/Wt Last Vital Signs Temp 98.0 F 03/04/21 19:31 Pulse 98 03/04/21 20:35 Resp 18 03/04/21 20:24 BP 105/62 03/04/21 19:31 Pulse Ox 98 03/04/21 20:24 03/04/21 03/04/21 03/04/21 06:59 14:59 22:59 Intake Total 600 / 600 240 / 840 Output Total 1300 / 2150 550 / 550 Balance -1300 / -560 600 / 600 -310 / 290 Weight last 48 hrs Weight 143 lb 3.2 oz Weight 145 lb 3.2 oz Physical Exam Narrative: EXAM NARRATIVE: GENERAL: Patient is alert, awake and oriented x3. NECK: No jugular vein distension. HEENT: No cyanosis. No icterus. No pallor. HEART: Regular S1 and S2. No murmur, rub or gallop. LUNGS: Decreased breath sound bilaterally with some expiratory tightness. ABDOMEN: Soft, nontender and nondistended. Positive bowel sounds. No guarding, rebound or tenderness. CENTRAL NERVOUS SYSTEM: Grossly nonfocal. EXTREMITIES: Lower extremities without edema bilaterally. Urinary Catheter Management^: Walters: Cath Placed During This Visit: yes Reason for Continuing Indwelling Catheter: Other Urinary Catheter Date of Insertion: 02/24/21 Urinary Catheter Time of Insertion: 21:30 Data : 03/04/21 03:35 03/04/21 03:35 A&P Assessment and plan (1) Acute systolic heart failure, first episode: Patient has mixed picture of new onset of acute systolic heart failure with LV dysfunction, it requires differentiation between ischemic versus nonischemic etiology as patient is moderate to high risk for multivessel coronary artery disease. Once euvolemic and recover from COPD exacerbation consider left heart cath for new LV dysfunction and heart failure. Continue current regimen with IV diuresis Patient continues to improve. Continue IV diuretics, once COPD exacerbation/pneumonia resolved may consider left heart cath before discharge most likely on Sunday we will assess the patient if ready we will proceed with left heart cath on Sunday Continue IV diuresis Status: Acute (2) Smoking addiction: Advised quitting smoking. Status: Acute (3) COPD (chronic obstructive pulmonary disease): As per pulmonary and medicine Status: Acute Qualifiers: COPD type: chronic bronchitis Chronic bronchitis type: simple Qualified Code(s): J41.0 - Simple chronic bronchitis Attestations Medical Necessity Statement*: Require continuation hospitalization for above defined care. Procedures Arterial Line Size (Gauge): 20 Coding Level of Care Code Established Pt Acute Mechanical Integrity Specialist for [facility] Fwd Patient Type Established History Detailed Exam Detailed Medical Decision Making Moderate Complexity Diagnoses Acute systolic heart failure, first episode I50.21 Smoking addiction F17.200 COPD (chronic obstructive pulmonary disease) J41.0 COPD type: chronic bronchitis Chronic bronchitis type: simple
[2021-03-05] VITALS (20 sets, daily range): BP systolic 82–100; BP diastolic 51–68; PULSE 58–104; RESP 15–21; TEMP 36–37.2; O2SAT 91–99
[2021-03-05] MEDS: levalbuterol 1.25 mg/3 mL Neb INHALATION ×4 (04:54→20:27)
[2021-03-05] MEDS: ipratropium 0.5 mg/2.5 mL Neb INHALATION (04:54)
[2021-03-05 08:29] LABS: Alanine Aminotransferase 203 U/L (0-33); Albumin Level 2.8 g/dL (3.5-5.2); Alkaline Phosphatase 67 IU/L (35-105); Aspartate Amino Transferase 39 U/L (0-32); Blood Urea Nitrogen 15 mg/dL (6-20); Calcium 9.1 mg/dL (8.5-10.5); Carbon Dioxide 34 mmol/L (22-29); Chloride 98 mmol/L (98-107); Creatinine Clr Calc Pharmacy 99.7886; Globulin 2.3 g/dL (1.3-4.6); Glomerular Filtration Rate 105.8 mL/min (90-130); Glucose 128 mg/dL (65-115); Magnesium 2.2 mg/dL (1.7-2.3); NT Pro B Type Natriuretic Pept 3039 pg/mL (0-125); Osmolality Calculated 294 mOsm/kg (285-295); Phosphorus 3.2 mg/dL (2.5-4.5); Sodium 141 mmol/L (136-145); Total Bilirubin 0.7 mg/dL (0.15-1.2); Total Protein 5.1 g/dL (6.6-8.7)
[2021-03-05] MEDS: budesonide 0.5 mg/2 mL Neb INHALATION ×2 (08:30→20:27)
[2021-03-05 08:46] LABS: Anion Gap 12.6 (5-19); Potassium 3.6 mmol/L (3.5-5.1)
[2021-03-05 09:12] LABS: Basophils # 0.1 10^3/uL (0.0-0.1); Basophils % 0.7 %; Eosinophils # 0.1 10^3/uL (0.0-0.8); Eosinophils % 0.5 %; Hematocrit 42.3 % (37.0-47.0); Hemoglobin 13.2 g/dL (11.5-15.3); Lymphocytes # 2.9 10^3/uL (0.8-4.8); Lymphocytes % 13.4 %; Mean Corpuscular HGB Conc 31.2 g/dL (30.0-36.0); Mean Corpuscular Hemoglobin 31.4 pg (28.0-34.0); Mean Corpuscular Volume 100.5 fL (81-99); Mean Platelet Volume 11.9 fL (7.4-10.4); Monocytes # 2.6 10^3/uL (0.2-0.9); Neutrophils # 14.23 10^3/uL (1.8-7.7); Neutrophils % 66.7 %; Nucleated Red Blood Cells % 0 %; Platelet Count 276 10^3/cmm (130-400); Red Blood Count 4.21 10^6/uL (4.1-5.3); Red Cell Distribution Width 11.9 % (12.1-15.1); White Blood Count 21.3 10^3/uL (4.0-10.0)
[2021-03-05 09:13] LABS: Slide Review Slide Review Perform
[2021-03-05] MEDS: nystatin 100,000 unit/mL UDC 5 mL 100000 UNIT PO ×4 (09:14→20:54)
[2021-03-05] MEDS: enoxaparin 80 mg/0.8 mL Syringe 70 MG SUBCUT ×2 (09:14→20:56)
[2021-03-05] MEDS: FUROsemide 20 mg Tablet PO (09:16)
[2021-03-05] MEDS: aspirin 81 mg EC Tablet PO (09:16)
[2021-03-05] MEDS: predniSONE 20 mg Tablet 40 MG PO (09:16)
[2021-03-05] MEDS: atorvastatin 40 mg Tablet PO (09:16)
[2021-03-05] MEDS: famotidine 20 mg Tablet PO ×2 (09:17→18:34)
--- NOTE | 2021-03-05 14:51 | P.PN_ITS ---
Subjective Subjective: Interval history: Patient is very cheery this morning, she tells me she is feeling significantly better, she is down to 2 to 3 L nasal cannula, she is working better with physical therapy, she use the BiPAP throughout the night, no chest pain, no lightheadedness, no dizziness, does have some shortness of breath with exertion Vitals/I&O/Wt Last Vital Signs Temp 97.8 F 03/05/21 12:00 Pulse 90 03/05/21 12:00 Resp 18 03/05/21 12:00 BP 92/61 03/05/21 12:00 Pulse Ox 91 03/05/21 12:00 03/04/21 03/05/21 03/05/21 22:59 06:59 14:59 Intake Total 240 / 840 480 / 1320 Output Total 550 / 550 500 / 1050 Balance -310 / 290 -20 / 270 Weight last 48 hrs Weight 62.278 kg Weight 64.954 kg Physical Exam Const: COMMON NORMALS: no acute distress and patient oriented x3 HENMT: COMMON NORMALS: normocephalic HEAD & SCALP: normocephalic Neck/C-Spine: COMMON NORMALS: no JVD Resp: COMMON NORMALS: normal respiratory effort, No retractions, No use of accessory muscles and clear to auscultation bilaterally AUSCULTATION: clear to auscultation bilaterally Cardio: COMMON NORMALS: no JVD, regular rate, regular rhythm, S1 normal heart sound present and S2 normal heart sound present RATE: regular rate RHYTHM: regular rhythm HEART SOUNDS: S1 normal heart sound present and S2 normal heart sound present GI: COMMON NORMALS: Normal to inspection, nondistended, normoactive bowel sounds present, Soft to palpation, non-tender, No hepatosplenomegaly present, no masses and no bruits PALPATION: Yes Soft to palpation and Yes No hepatosplenomegaly present Extremity: COMMON NORMALS: capillary refill normal, no clubbing, cyanosis or edema, no calf tenderness and no pedal edema Neuro: COMMON NORMALS: patient oriented x3 Psych: COMMON NORMALS: mental status grossly normal Urinary Catheter Management^: Walters: Cath Placed During This Visit: yes Reason for Continuing Indwelling Catheter: Other Urinary Catheter Date of Insertion: 02/24/21 Urinary Catheter Time of Insertion: 21:30 Data : 03/05/21 05:48 03/05/21 05:48 A&P Assessment and plan (1) Acute exacerbation of chronic obstructive pulmonary disease (COPD): -Secondary to COPD, hypercarbic respiratory failure, pneumonia -Successfully extubated -Discontinue femoral line -Discontinue Walters -Currently on general medical floors -Continue BiPAP schedule during the night, BiPAP as needed during the day, oxygen therapy during the day, patient needs BiPAP on discharge, would clinically benefit from BiPAP, for her COPD, reduce risk of exacerbations, hospitalizations -Prednisone 40 mg p.o. every 24 hours -Advance diet as tolerated -cardiac echo should was of poor quality study, moderately reduced EF, cardiol ogy on consult, plans on performing cardiac catheterization on Sunday -Follow alpha-1 antitrypsin -Finished antibiotic therapy -Follow sputum cultures, blood cultures, so far negative -Xopenex, Pulmicort -Pepcid for GI prophylaxis -Lovenox for GI prophylaxis -Pulmonary on consult -Aspirin 81 mg, atorvastatin 40 mg, Lasix 20 mg -Continue steroids, continue PT OT, continue BiPAP, awaiting home BiPAP, possibly will have a coronary angiogram on Sunday or Sunday Status: Acute (2) Acute on chronic respiratory failure with hypoxia and hypercapnia: Status: Acute (3) Hypernatremia: Status: Acute (4) Community acquired pneumonia: Follow-up sputum, blood cultures. Continue antibiotics. Status: Acute (5) Sepsis: Status: Acute (6) Smoking addiction: Continue to encourage cessation. 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
--- NOTE | 2021-03-05 19:58 | PM.PN ---
Subjective Subjective: Interval history: Patient is doing well. She says that she has been feeling better. Vitals/I&O/Wt Last Vital Signs Temp 96.8 F L 03/05/21 16:28 Pulse 102 H 03/05/21 16:00 Resp 18 03/05/21 16:00 BP 82/68 03/05/21 16:28 Pulse Ox 95 03/05/21 16:00 03/05/21 03/05/21 03/05/21 06:59 14:59 22:59 Intake Total 480 / 1320 240 / 240 Output Total 500 / 1050 875 / 875 Balance -20 / 270 -875 / -875 240 / -635 Weight last 48 hrs Weight 137 lb 4.8 oz Weight 143 lb 3.2 oz Physical Exam Narrative: EXAM NARRATIVE: GENERAL: Patient is alert, awake and oriented x3. NECK: No jugular vein distension. HEENT: No cyanosis. No icterus. No pallor. HEART: Regular S1 and S2. No murmur, rub or gallop. LUNGS: Decreased breath sound bilaterally with some expiratory tightness. ABDOMEN: Soft, nontender and nondistended. Positive bowel sounds. No guarding, rebound or tenderness. CENTRAL NERVOUS SYSTEM: Grossly nonfocal. EXTREMITIES: Lower extremities without edema bilaterally. Urinary Catheter Management^: Walters: Cath Placed During This Visit: yes, but has since been removed by the nurse Reason for Continuing Indwelling Catheter: Other Urinary Catheter Date of Insertion: 02/24/21 Urinary Catheter Time of Insertion: 21:30 Date Urinary Catheter Removed: 03/05/21 Time Urinary Catheter Discontinued: 14:15 Data : 03/06/21 06:12 03/06/21 06:12 A&P Assessment and plan (1) Acute systolic heart failure, first episode: Patient has mixed picture of new onset of acute systolic heart failure with LV dysfunction, it requires differentiation between ischemic versus nonischemic etiology as patient is moderate to high risk for multivessel coronary artery disease. Continue diuretics. Once patient's a COPD exacerbation/pneumonia have resolved, we will proceed with coronary angiogram likely on Sunday. Continue IV diuresis Status: Acute (2) Smoking addiction: Advised quitting smoking. Status: Acute (3) COPD (chronic obstructive pulmonary disease): As per pulmonary and medicine Status: Acute Qualifiers: COPD type: chronic bronchitis Chronic bronchitis type: simple Qualified Code(s): J41.0 - Simple chronic bronchitis Attestations Medical Necessity Statement*: Care expected to cross 2 midnights. 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
[2021-03-06] VITALS (23 sets, daily range): BP systolic 92–106; BP diastolic 54–70; PULSE 74–102; RESP 16–22; TEMP 36.5–36.9; O2SAT 92–99
[2021-03-06] MEDS: levalbuterol 1.25 mg/3 mL Neb INHALATION ×6 (00:33→23:37)
[2021-03-06 06:28] LABS: Basophils # 0.1 10^3/uL (0.0-0.1); Basophils % 0.6 %; Eosinophils # 0.1 10^3/uL (0.0-0.8); Eosinophils % 0.8 %; Hematocrit 37.8 % (37.0-47.0); Lymphocytes # 3.4 10^3/uL (0.8-4.8); Lymphocytes % 19.4 %; Mean Corpuscular HGB Conc 31.7 g/dL (30.0-36.0); Mean Corpuscular Hemoglobin 30.9 pg (28.0-34.0); Mean Corpuscular Volume 97.4 fL (81-99); Mean Platelet Volume 11.1 fL (7.4-10.4); Monocytes # 1.7 10^3/uL (0.2-0.9); Monocytes % 9.7 %; Neutrophils # 10.72 10^3/uL (1.8-7.7); Nucleated Red Blood Cells % 0 %; Platelet Count 233 10^3/cmm (130-400); Red Blood Count 3.88 10^6/uL (4.1-5.3); White Blood Count 17.3 10^3/uL (4.0-10.0)
[2021-03-06 07:00] LABS: Alanine Aminotransferase 130 U/L (0-33); Alkaline Phosphatase 67 IU/L (35-105); Anion Gap 9.9 (5-19); Aspartate Amino Transferase 28 U/L (0-32); Blood Urea Nitrogen 13 mg/dL (6-20); Calcium 9.1 mg/dL (8.5-10.5); Carbon Dioxide 35 mmol/L (22-29); Chloride 97 mmol/L (98-107); Globulin 2.2 g/dL (1.3-4.6); Glomerular Filtration Rate 130.6 mL/min (90-130); Glucose 91 mg/dL (65-115); Magnesium 1.9 mg/dL (1.7-2.3); NT Pro B Type Natriuretic Pept 2732 pg/mL (0-125); Osmolality Calculated 288 mOsm/kg (285-295); Phosphorus 2.8 mg/dL (2.5-4.5); Sodium 139 mmol/L (136-145); Total Bilirubin 0.7 mg/dL (0.15-1.2); Total Protein 5.2 g/dL (6.6-8.7)
[2021-03-06] MEDS: budesonide 0.5 mg/2 mL Neb INHALATION ×2 (07:15→19:51)
--- NOTE | 2021-03-06 07:31 | PC.NURSE ---
nurse notified of bp
[2021-03-06 08:01] LABS: Potassium 2.9 mmol/L (3.5-5.1)
[2021-03-06] MEDS: nystatin 100,000 unit/mL UDC 5 mL 100000 UNIT PO ×4 (08:20→22:06)
[2021-03-06] MEDS: atorvastatin 40 mg Tablet PO (08:21)
[2021-03-06] MEDS: aspirin 81 mg EC Tablet PO (08:22)
[2021-03-06] MEDS: famotidine 20 mg Tablet PO ×2 (08:22→18:27)
[2021-03-06] MEDS: predniSONE 20 mg Tablet 40 MG PO (08:23)
[2021-03-06] MEDS: enoxaparin 80 mg/0.8 mL Syringe 70 MG SUBCUT ×2 (08:29→22:06)
[2021-03-06 08:31] LABS: Neutrophils % 69.5 %; Slide Review Slide Review Perform
[2021-03-06] MEDS: potassium chloride ER 20 mEq Tablet 40 MEQ PO (08:43)
--- NOTE | 2021-03-06 11:59 | P.PN_ITS ---
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, she is a bit anxious about seeing if she can get the BiPAP, she tells me she really needs it, it helps her during the night Vitals/I&O/Wt Last Vital Signs Temp 97.8 F 03/06/21 07:26 Pulse 83 03/06/21 07:26 Resp 18 03/06/21 07:26 BP 92/58 03/06/21 07:26 Pulse Ox 93 03/06/21 07:26 03/05/21 03/06/21 03/06/21 22:59 06:59 14:59 Intake Total 240 / 240 400 / 640 240 / 240 Output Total 400 / 1275 200 / 1475 Balance -160 / -1035 200 / -835 240 / 240 Weight last 48 hrs Weight 64.41 kg Weight 62.278 kg Physical Exam Const: COMMON NORMALS: no acute distress and patient oriented x3 HENMT: COMMON NORMALS: normocephalic HEAD & SCALP: normocephalic Neck/C-Spine: COMMON NORMALS: no JVD Resp: COMMON NORMALS: normal respiratory effort, No retractions and No use of accessory muscles AUSCULTATION: diminished lung sounds Cardio: COMMON NORMALS: no JVD, regular rate, regular rhythm, S1 normal heart sound present and S2 normal heart sound present RATE: regular rate RHYTHM: regular rhythm HEART SOUNDS: S1 normal heart sound present and S2 normal heart sound present GI: COMMON NORMALS: Normal to inspection, nondistended, normoactive bowel sounds present, Soft to palpation, non-tender, No hepatosplenomegaly present, no masses and no bruits PALPATION: Yes Soft to palpation and Yes No hepatosplenomegaly present Extremity: COMMON NORMALS: capillary refill normal, no clubbing, cyanosis or edema, no calf tenderness and no pedal edema Neuro: COMMON NORMALS: patient oriented x3 Psych: COMMON NORMALS: mental status grossly normal Urinary Catheter Management^: Walters: Cath Placed During This Visit: yes, but has since been removed by the nurse Reason for Continuing Indwelling Catheter: Other Urinary Catheter Date of Insertion: 02/24/21 Urinary Catheter Time of Insertion: 21:30 Date Urinary Catheter Removed: 03/05/21 Time Urinary Catheter Discontinued: 14:15 Data : 03/06/21 06:12 03/06/21 06:12 A&P Assessment and plan (1) Acute exacerbation of chronic obstructive pulmonary disease (COPD): -Secondary to COPD, hypercarbic respiratory failure, pneumonia -Currently on general medical floors -Continue BiPAP schedule during the night, BiPAP as needed during the day, oxygen therapy during the day, patient needs BiPAP on discharge, would clinically benefit from BiPAP, for her COPD, reduce risk of exacerbations, hospitalizations -Prednisone 40 mg p.o. every 24 hours -Advance diet as tolerated -cardiac echo should was of poor quality study, moderately reduced EF, cardiology on consult, plans on performing cardiac catheterization on Sunday -Follow alpha-1 antitrypsin -Finished antibiotic therapy -Follow sputum cultures, blood cultures, so far negative -Xopenex, Pulmicort -Pepcid for GI prophylaxis -Lovenox for GI prophylaxis -Pulmonary on consult -Aspirin 81 mg, atorvastatin 40 mg, Lasix 20 mg -Continue steroids, continue PT OT, continue BiPAP, awaiting home BiPAP, will have coronary angiogram on Sunday, working on possible placement at [facility], blood pressure is on the softer and hold lisinopril, hold Norvasc, she diuresed over 7 L, hold Lasix Status: Acute (2) Acute on chronic respiratory failure with hypoxia and hypercapnia: Status: Acute (3) Hypernatremia: Status: Acute (4) Community acquired pneumonia: Follow-up sputum, blood cultures. Continue antibiotics. Status: Acute (5) Sepsis: Status: Acute (6) Smoking addiction: Continue to encourage cessation. Status: Acute (7) Deep vein thrombosis, upper right extremity: Patient has a cephalic vein DVT, on therapeutic Lovenox, arterial line removed, can transition to Eliquis on discharge Status: Acute (8) Acute systolic heart failure, first episode: EF is reduced, cardiac catheterization on Sunday Status: Acute Additional A&P Information Full code DVT prophylaxis Lovenox Attestations Medical Necessity Statement*: Patient requires hospitalization for acute respiratory failure secondary COPD, with reduced ejection fraction proceeding to cardiac catheterization on Sunday Procedures Arterial Line Size (Gauge): 20 Coding 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
--- NOTE | 2021-03-06 14:18 | PM.PN ---
Subjective Subjective: Interval history: Patient is doing well. Denies complaints of chest pain, shortness of breath or palpitations. Vitals/I&O/Wt Last Vital Signs Temp 97.8 F 03/06/21 07:26 Pulse 83 03/06/21 07:26 Resp 18 03/06/21 07:26 BP 92/58 03/06/21 07:26 Pulse Ox 93 03/06/21 07:26 03/05/21 03/06/21 03/06/21 22:59 06:59 14:59 Intake Total 240 / 240 400 / 640 360 / 360 Output Total 400 / 1275 200 / 1475 Balance -160 / -1035 200 / -835 360 / 360 Weight last 48 hrs Weight 142 lb Weight 137 lb 4.8 oz Physical Exam Narrative: EXAM NARRATIVE: GENERAL: Patient is alert, awake and oriented x3. NECK: No jugular vein distension. HEENT: No cyanosis. No icterus. No pallor. HEART: Regular S1 and S2. No murmur, rub or gallop. LUNGS: Decreased breath sound bilaterally with some expiratory tightness. ABDOMEN: Soft, nontender and nondistended. Positive bowel sounds. No guarding, rebound or tenderness. CENTRAL NERVOUS SYSTEM: Grossly nonfocal. EXTREMITIES: Lower extremities without edema bilaterally. Urinary Catheter Management^: Walters: Cath Placed During This Visit: yes, but has since been removed by the nurse Reason for Continuing Indwelling Catheter: Other Urinary Catheter Date of Insertion: 02/24/21 Urinary Catheter Time of Insertion: 21:30 Date Urinary Catheter Removed: 03/05/21 Time Urinary Catheter Discontinued: 14:15 Data : 03/06/21 06:12 03/06/21 06:12 A&P Assessment and plan (1) Acute systolic heart failure, first episode: Patient has mixed picture of new onset of acute systolic heart failure with LV dysfunction, it requires differentiation between ischemic versus nonischemic etiology as patient is moderate to high risk for multivessel coronary artery disease. Continue diuretics. Will likely proceed with coronary angiography with Dr Munguia on Sunday Continue IV diuresis Status: Acute (2) Smoking addiction: Advised quitting smoking. 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
[2021-03-07] VITALS (23 sets, daily range): BP systolic 102–115; BP diastolic 62–75; PULSE 69–100; RESP 17–19; TEMP 36.2–36.7; O2SAT 93–100
[2021-03-07] MEDS: levalbuterol 1.25 mg/3 mL Neb INHALATION ×6 (03:14→23:37)
[2021-03-07] MEDS: budesonide 0.5 mg/2 mL Neb INHALATION ×2 (07:44→19:48)
[2021-03-07] MEDS: enoxaparin 80 mg/0.8 mL Syringe 70 MG SUBCUT ×2 (08:27→21:06)
[2021-03-07] MEDS: famotidine 20 mg Tablet PO ×2 (08:27→17:48)
[2021-03-07] MEDS: aspirin 81 mg EC Tablet PO (08:27)
[2021-03-07] MEDS: atorvastatin 40 mg Tablet PO (08:28)
[2021-03-07] MEDS: predniSONE 20 mg Tablet 40 MG PO (08:28)
[2021-03-07] MEDS: nystatin 100,000 unit/mL UDC 5 mL 100000 UNIT PO ×4 (08:30→21:05)
[2021-03-07 09:36] LABS: Hematocrit 41.3 % (37.0-47.0); Hemoglobin 12.9 g/dL (11.5-15.3); Mean Corpuscular HGB Conc 31.2 g/dL (30.0-36.0); Mean Corpuscular Volume 102.5 fL (81-99); Mean Platelet Volume 11.4 fL (7.4-10.4); Platelet Count 265 10^3/cmm (130-400); Red Blood Count 4.03 10^6/uL (4.1-5.3); White Blood Count 16.4 10^3/uL (4.0-10.0)
[2021-03-07 09:55] LABS: Alanine Aminotransferase 125 U/L (0-33); Albumin Level 3.1 g/dL (3.5-5.2); Alkaline Phosphatase 67 IU/L (35-105); Anion Gap 13.7 (5-19); Aspartate Amino Transferase 41 U/L (0-32); Blood Urea Nitrogen 12 mg/dL (6-20); Calcium 9.1 mg/dL (8.5-10.5); Carbon Dioxide 28 mmol/L (22-29); Chloride 102 mmol/L (98-107); Globulin 2.3 g/dL (1.3-4.6); Glomerular Filtration Rate 105.8 mL/min (90-130); Glucose 157 mg/dL (65-115); NT Pro B Type Natriuretic Pept 3030 pg/mL (0-125); Osmolality Calculated 295 mOsm/kg (285-295); Phosphorus 2.6 mg/dL (2.5-4.5); Sodium 141 mmol/L (136-145); Total Bilirubin 0.7 mg/dL (0.15-1.2); Total Protein 5.4 g/dL (6.6-8.7)
[2021-03-07 10:04] LABS: Potassium 2.7 mmol/L (3.5-5.1)
[2021-03-07 10:40] LABS: Slide Review Slide Review Perform
[2021-03-07 11:12] LABS: Absolute Segmented Neutrophil 9.8 10/cmm (1.6-7.1); Band Neutrophils Absolute 0.3 10^3/cmm (0.0-1.2); Lymphocytes 28 %; Monocytes Absolute 0.7 10^3/cmm (0.1-0.6); Segmented Neutrophils 60 %; Total Cells Counted 100 (0-100)
[2021-03-07 11:13] LABS: Absolute Neutrophil 10.2 10^3/cmm (1.4-6.5); Eosinophils 0 %; Lymphocytes Absolute 4.6 10^3/cmm (1.2-3.4); Platelet Estimate Normal (Normal)
--- NOTE | 2021-03-07 18:17 | PM.PN ---
Subjective Subjective: Interval history: Patient doing better. Getting up and walking around. Not having any chest pain. Overall breathing is improved. Diuretics, lisinopril and amlodipine of been held the last couple of days due to lower range blood pressures. Cardiology is tentatively planning for cardiac catheterization tomorrow. Remains on Lovenox. Is on steroids. Pt has completed antibiotic therapy. Vitals/I&O/Wt Last Vital Signs Temp 97.9 F 03/07/21 15:55 Pulse 93 03/07/21 16:03 Resp 18 03/07/21 15:58 BP 115/62 03/07/21 15:55 Pulse Ox 98 03/07/21 15:58 03/07/21 03/07/21 03/07/21 06:59 14:59 22:59 Intake Total 590 / 590 220 / 810 Balance 590 / 590 220 / 810 Weight last 48 hrs Weight 60.781 kg Weight 64.41 kg Physical Exam Narrative: EXAM NARRATIVE: Patient is awake and alert, had a shower today and looks like she is feeling better than she has been Extraocular movements are intact, mucous membranes moist, edentulous. Neck is supple. Lungs are remarkable for some scattered wheezes but no current accessory muscle use noted, decreased at both bases. Cardiovascular exam reveals a regular rhythm, slightly distant heart sounds. Abdomen is soft, 1+ pitting edema. Speech is clear, moves all extremities. Urinary Catheter Management^: Walters: Cath Placed During This Visit: yes, but has since been removed by the nurse Reason for Continuing Indwelling Catheter: Other Urinary Catheter Date of Insertion: 02/24/21 Urinary Catheter Time of Insertion: 21:30 Date Urinary Catheter Removed: 03/05/21 Time Urinary Catheter Discontinued: 14:15 Data : 03/07/21 08:48 03/07/21 08:48 A&P Assessment and plan (1) Acute on chronic respiratory failure with hypoxia and hypercapnia: Status: Acute (2) Acute systolic heart failure, first episode: Status: Acute (3) Acute exacerbation of chronic obstructive pulmonary disease (COPD): Status: Acute (4) Deep vein thrombosis, upper right extremity: Status: Acute Qualifiers: Affected thrombotic vein of extremity: other upper extremity vein Chronicity: acute Qualified Code(s): I82.621 - Acute embolism and thrombosis of deep veins of right upper extremity (5) Community acquired pneumonia: Status: Resolved (6) Sepsis: Status: Ruled-out (7) Hypernatremia: Status: Resolved (8) Nicotine dependence, cigarettes, with other nicotine-induced disorders: Status: Chronic Additional A&P Information Try to resume diuretics at once daily dosing Replace potassium Discontinue amlodipine and lisinopril presently Depending on results of cardiac catheterization will need to reconsider BRINA inhibitor or ARB at a lower dose if able to get a good idea of ejection fraction Monitor blood pressures for continued lower end of normal range After cardiac catheterization will transition to appropriate anticoagulation, need to verify extent of vein involvement and determine length of treatment necessary. My understanding is arterial line has been discontinued and arm is improving. BiPAP has been ordered for home secondary to elevated PaCO2 on usual home oxygen, overnight pulse oximetry demonstrating hypoxemia and treatment with CPAP was considered but ruled out due to the degree of chronic hypercapnia and respiratory failure she has presented with. Need to discuss with case management arrangements for home BiPAP No longer on antibiotics, review of chest x-rays does not show evidence of pneumonia. I do not see definitive evidence of sepsis present at admission as I think the abnormalities identified were secondary to cardiopulmonary issues rather than of infection Continue current prednisone, need to clarify chronic versus acute prednisone dosing for home use Will need outpatient follow-up with Dr. Flores Will also need follow-up with cardiology upon disposition Strongly encouraged to quit smoking Supportive care otherwise Presently on Lovenox at treatment dose which provides DVT prophylaxis as well Plans were discussed with patient and she was given an opportunity to ask questions Full code Attestations Medical Necessity Statement*: Patient requires ongoing inpatient stay away optimize her condition from a volume standpoint with plan for cardiac catheterization for cardiology in the next couple of days. She has had fluctuating blood pressures which led to holding of antihypertensives and diuretics which we are resuming. 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
--- NOTE | 2021-03-07 19:48 | P.PN_ITS ---
Subjective Subjective: Interval history: Continues to improve Medications: Reviewed: Yes Vitals/I&O/Wt Last Vital Signs Temp 97.4 F L 03/07/21 19:40 Pulse 82 03/07/21 19:40 Resp 17 03/07/21 19:40 BP 112/75 03/07/21 19:40 Pulse Ox 97 03/07/21 19:40 03/07/21 03/07/21 03/07/21 06:59 14:59 22:59 Intake Total 590 / 590 220 / 810 Balance 590 / 590 220 / 810 Weight last 48 hrs Weight 134 lb Weight 142 lb Physical Exam Narrative: EXAM NARRATIVE: GENERAL: Patient is alert, awake and oriented x3. NECK: No jugular vein distension. HEENT: No cyanosis. No icterus. No pallor. HEART: Regular S1 and S2. No murmur, rub or gallop. LUNGS: Decreased breath sound bilaterally with some expiratory tightness. ABDOMEN: Soft, nontender and nondistended. Positive bowel sounds. No guarding, rebound or tenderness. CENTRAL NERVOUS SYSTEM: Grossly nonfocal. EXTREMITIES: Lower extremities without edema bilaterally. Urinary Catheter Management^: Walters: Cath Placed During This Visit: yes, but has since been removed by the nurse Reason for Continuing Indwelling Catheter: Other Urinary Catheter Date of Insertion: 02/24/21 Urinary Catheter Time of Insertion: 21:30 Date Urinary Catheter Removed: 03/05/21 Time Urinary Catheter Discontinued: 14:15 Data : 03/07/21 08:48 03/07/21 08:48 A&P Assessment and plan (1) Acute systolic heart failure, first episode: Patient has mixed picture of new onset of acute systolic heart failure with LV dysfunction, it requires differentiation between ischemic versus nonischemic etiology as patient is moderate to high risk for multivessel coronary artery disease. Continue diuretics. Will likely proceed with coronary angiography with Dr Munguia on Sunday Appear to be euvolemic continue p.o. diuretics. Continue optimize medicine. We will proceed with left heart catheter once improved COPD de león we'll reassess her tomorrow Status: Acute (2) Smoking addiction: Advised quitting smoking. 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
[2021-03-07] MEDS: potassium chloride ER 20 mEq Tablet 40 MEQ PO (22:32)
[2021-03-08] VITALS (36 sets, daily range): BP systolic 85–140; BP diastolic 62–85; PULSE 70–104; RESP 14–28; TEMP 36.5–36.9; O2SAT 94–99
[2021-03-08] MEDS: levalbuterol 1.25 mg/3 mL Neb INHALATION ×4 (03:38→15:18)
[2021-03-08 06:19] LABS: Basophils # 0.1 10^3/uL (0.0-0.1); Basophils % 0.6 %; Eosinophils # 0.1 10^3/uL (0.0-0.8); Eosinophils % 0.6 %; Hematocrit 34.9 % (37.0-47.0); Hemoglobin 11.4 g/dL (11.5-15.3); Lymphocytes # 4.5 10^3/uL (0.8-4.8); Lymphocytes % 22.4 %; Mean Corpuscular HGB Conc 32.7 g/dL (30.0-36.0); Mean Corpuscular Hemoglobin 31.7 pg (28.0-34.0); Mean Corpuscular Volume 96.9 fL (81-99); Mean Platelet Volume 11.7 fL (7.4-10.4); Monocytes # 1.6 10^3/uL (0.2-0.9); Neutrophils # 12.47 10^3/uL (1.8-7.7); Neutrophils % 62.2 %; Nucleated Red Blood Cells % 0 %; Platelet Count 300 10^3/cmm (130-400); Red Cell Distribution Width 11.9 % (12.1-15.1); White Blood Count 20.1 10^3/uL (4.0-10.0)
[2021-03-08 06:34] LABS: Anion Gap 12.5 (5-19); Blood Urea Nitrogen 9 mg/dL (6-20); Calcium 9.2 mg/dL (8.5-10.5); Carbon Dioxide 28 mmol/L (22-29); Chloride 103 mmol/L (98-107); Glomerular Filtration Rate 130.6 mL/min (90-130); Glucose 87 mg/dL (65-115); Magnesium 1.9 mg/dL (1.7-2.3); Osmolality Calculated 288 mOsm/kg (285-295); Phosphorus 2.6 mg/dL (2.5-4.5); Potassium 3.5 mmol/L (3.5-5.1); Sodium 140 mmol/L (136-145)
[2021-03-08 07:03] LABS: Slide Review Slide Review Perform
[2021-03-08] MEDS: budesonide 0.5 mg/2 mL Neb INHALATION (07:37)
[2021-03-08 08:06] LABS: ABG PCO2 39.3 mmHg (35-45); ABG PH Result 7.49 (7.35-7.45); Arterial Blood Gas Hematocrit 39.6 % (37-47); Base Excess ABG 6.1 mmol/L (-2.0-2.0); Blood Gas Operator Identificat GD; Blood Gas Sample Site Brachial, left; Blood Gas Sample Type Arterial; HCO3 ABG 29.9 mmol/L (22-26); Oxygen Device ROOM AIR; PO2 ABG 79.3 mmHg (80.0-100.0)
--- NOTE | 2021-03-08 08:48 | PC.NURSE ---
Patient has the potential to be taken to [facility] today around possibly 1130. Per Bhavna Garcia RN in [facility], Lovenox is to be held as well as Lasix and initiate NS 0.9% at 50 mL/hr. Benadryl 25 mg to be given around 1100 prior to procedure. Due to elevated WBC in comparison to 03/07, Bhavna Garcia states that she will speak with Dr. Munguia regarding procedure with increased WBC. I spoke with primary nurse, Mendez Nuñez RN and she verbalizes understanding.
[2021-03-08] MEDS: potassium chloride ER 20 mEq Tablet 40 MEQ PO (08:56)
[2021-03-08] MEDS: famotidine 20 mg Tablet PO (08:56)
[2021-03-08] MEDS: aspirin 81 mg EC Tablet PO (08:56)
[2021-03-08] MEDS: fluticasone nasal spray 16gm Btl 1 SPRAY NASAL (08:56)
[2021-03-08] MEDS: predniSONE 20 mg Tablet 40 MG PO (08:56)
[2021-03-08] MEDS: atorvastatin 40 mg Tablet PO (08:56)
[2021-03-08] MEDS: sodium chloride 0.9% 1,000 ML 50 ML IV (08:57)
--- NOTE | 2021-03-08 09:29 | XACV_ITS ---
Exam Room: [facility] Ht: 160 cm Wt: 61 kg BSA: 1.65 m2 Gender: Female : 1970 Exam Priority: Routine Procedure(s): Procedure Description: Diagnostic procedure Procedure Description: Left Heart Catheterization Procedure Description: Left ventriculography Procedure Description: Coronary Angiography Diagnostic Findings * No significant disease noted in the Left Main, LAD, Circumflex, or RCA coronary arteries. * Coronary angiography shows right dominance. Conclusions 1. No significant disease noted in the Left Main, LAD, Circumflex, or RCA coronary arteries. 2. The apex, mid posterior, mid septum, anterolateral, mid inferior webb are hypokinetic. 3. All other visualized webb normal. 4. Mild left ventricular systolic dysfunction. Ejection fraction of 45%. Recommendations * Continue current medical management and risk factor modification. Diagnostic RX Recommendation: medical therapy and/or counseling Ventriculography Ejection Fraction: 45.0 % Left Ventriculography Findings: * Moderately depressed LV function with anterior apical and inferior wall hypokinesis consistent with nonischemic cardiomyopathy. Pressures Phase:Rest AO : 87 / 74 ( 79 ) @ 5:13:00 AM 113 / 57 ( 83 ) @ 5:19:00 AM 114 / 53 ( 82 ) @ 5:19:00 AM 113 / 57 ( 83 ) @ 5:19:00 AM LV : 130 / -4 / @ 5:18:00 AM 132 / -2 / @ 5:19:00 AM 130 / -3 / @ 5:19:00 AM Valves Phase:DefaultPhase AV : 18.0 @ 10:26:10 AM AV Mean Gradient: 11.0 @ 10:26:10 AM Clinical Evaluation EBL: 5mL-10mL Procedural Details Procedure Consent Obtained. Pre-Procedure Time Out. Identified patient by full name and date of as verbalized by the patient/guarantor. Does the consent match the physician's order: Yes. Accurate & Complete Informed Consent: Yes. Inpatient/Outpatient History & Physical on Chart: Yes. If H&P is completed, is and addenduem needed: No; If yes, is the addendum complete: N/A. Visualize and Verify Site with Patient/Guarantor: N/A. Relevant Radiology Images available: N/A. Pre-op teaching completed and patient verbalized understanding. The risks, benefits, and alternatives of sedation and/or procedure were discussed by physician. The patient agrees to continue. Procedure started. [facility] Clinical Fraility Score: 3: Managing Well. 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 Chest Pain Symptom Assessment: Atypical Angina. Cardiovascular Instability: No. Correct patient, site and procedure confirmed by cath team. PERRLA. Strong, equal hand insurance account representative bilaterally. Lungs clear x 5 lobes. IV Site on Arrival: 18 gauge in the left anticubital. IV Fluids: 0.9% NaCl at KVO. 0 mL infused prior to drop crew laborer. Pre Procedural Pulses: bilateral dorsalis pedis was 1+. Pre Procedural Pulses: bilateral posterior tibial was 1+. Pre Procedural Pulses: bilateral radial was 2+. Oxygen started at 2liters/min via nasal canula. Physician arrived. Equipment: 6F - Radial. Cardiac Cath Pack. ACIST Manifold Kit Model BT 2000. Heparinized Saline (2 units/mL), 1000 mL bag. bilateral groins was prepped with chloroprep then draped in the usual sterile fashion. Baseline sample Acquired. HR: 82 BPM. Physician scrubbed in. Immediate Pre-Procedure Time Out. Correct Patient: Yes; Correct Procedure: Yes; Correct Site: Yes; Correct Patient Position: Yes; Correct Supplies: Yes; Dried Flammable Prep: Yes; Blood Products Available: N/A;. Lidocaine 1% infiltrated to the right radial. Arterial access obtained. A 5 afghan TIG catheter in over wire. Multiple views taken of left coronary artery. Multiple views taken of right coronary artery. Catheter removed over the exchange wire. A 5 afghan Angled Pig catheter in over wire. EDP Sample taken: LV 130/-5,22; HR: 84 BPM; SpO2: 99%. LV gram performed in DUMAS @ 10 mL/second for a total of 30 mL. EDP Sample taken: LV 132/-3,24; HR: 90 BPM; SpO2: 99%. Pullback taken: LV 130/-4,24; AO 113/57(83); Mean: 11mmHg, Peak to Peak: 18mmHg, SEP: 8sec/min; HR: 91 BPM; SpO2: 99%. Catheter removed over the exchange wire. Physician scrubbed out. A TR Band was successful obtaining hemostatsis at the Right Radial artery insertion site. TR band placed. Hemostasis obtained. Post Procedure: Pulses reassessed and unchanged. PERRLA. Strong, equal hand insurance account representative bilaterally. No VTE prophylaxis required. Medication's Wasted: Nitro = 47.5 mg. Medication's Wasted: Lidocaine 1% = 18 mL. Medication's Wasted: Heparin = 1000 units. Total IV fluids: 50 mL. Contrast type used: Omnipaque 300 mgI/mL, 500 mL bottle. Complications: none. Post-op diagnosis: stress induced cardiomyopathy, normal coronaries. Estimated blood loss: 5mL-10mL. Procedure completed. Patient transferred by wheelchair to 1st floor. Vital chart was stopped. Access Site Site: Right Radial artery Sheath Size: 6 Fr Hemostasis Method: TR Band Hemostasis Success: Successful Procedure Medications Start: 9:56 AM Stop: 9:56 AM Medication: Benadryl Amount: 50 mg Route: I.V. Start: 9:58 AM Stop: 9:58 AM Medication: Versed Amount: 1 mg Route: I.V. Start: 9:58 AM Stop: 9:58 AM Medication: Fentanyl Amount: 50 mcg Route: I.V. Start: 10:03 AM Stop: 10:03 AM Medication: Versed Amount: 1 mg Route: I.V. Start: 10:03 AM Stop: 10:03 AM Medication: Fentanyl Amount: 25 mcg Route: I.V. Start: 10:07 AM Stop: 10:07 AM Medication: Fentanyl Amount: 25 mcg Route: I.V. Start: 10:10 AM Stop: 10:10 AM Medication: Nitrogylcerin Amount: 50 mcg Route: S.Q. Start: 10:12 AM Stop: 10:12 AM Medication: Nitrogylcerin Amount: 200 mcg Route: I.A. Start: 10:14 AM Stop: 10:14 AM Medication: Heparin Amount: 5000 units Route: I.V. I, the attending physician, have reviewed and verified all procedure medications. Yes, all medications given per verbal order History/Risk Factors Hypertension: No Dyslipidemia: No Peripheral Arterial Disease (PAD): No Myocardial Infarction (VA): No Obesity: No Renal Disease: No Tobacco Use: Current/Recent(w/in 1 year) Prior Interventions PCI: No CABG: No Valve Surgery: No Report Signatures Finalized by Dasha Munguia MD on 03/20/2021 08:51 PM
--- NOTE | 2021-03-08 09:59 | W.PM.OPSUD ---
Surgery/Procedure H&P Update DATE OF PROCEDURE: March 08, 2021 DATE H&P PERFORMED: 03/03/21 H&P UPDATE INFORMATION: I have reviewed H&P completed within last 30 days, I have examined patient prior to procedure and No changes to prior documentation PREOP DIAGNOSIS: LV dysfunction new onset of heart failure PATIENT REASSESSED PRIOR TO SEDATION, WITH NO CHANGE NOTED: Yes PHYSICAL EXAM: alert, oriented x 3, clear to auscultation bilaterally and regular rate & rhythm AIRWAY EVAL/ANESTHESIA PLAN: ASA II, Risks, benefits & alternatives of sedation and/or procedure discussed and Patient agrees to continue as planned
--- NOTE | 2021-03-08 10:24 | P.PN_ITS ---
Subjective Subjective: Interval history: Patient underwent left heart cath which showed normal coronaries most likely stress-induced cardiomyopathy, left ventricle ejection fraction 50% by LV gram Medications: Reviewed: Yes Vitals/I&O/Wt Last Vital Signs Temp 98.4 F 03/08/21 07:17 Pulse 78 03/08/21 07:49 Resp 17 03/08/21 07:36 BP 102/69 03/08/21 07:17 Pulse Ox 97 03/08/21 07:36 03/07/21 03/08/21 03/08/21 22:59 06:59 14:59 Intake Total 340 / 930 Balance 340 / 930 Weight last 48 hrs Weight 137 lb 1.6 oz Weight 134 lb Physical Exam Narrative: EXAM NARRATIVE: GENERAL: Patient is alert, awake and oriented x3. NECK: No jugular vein distension. HEENT: No cyanosis. No icterus. No pallor. HEART: Regular S1 and S2. No murmur, rub or gallop. LUNGS: Decreased breath sound bilaterally with some expiratory tightness. ABDOMEN: Soft, nontender and nondistended. Positive bowel sounds. No guarding, rebound or tenderness. CENTRAL NERVOUS SYSTEM: Grossly nonfocal. EXTREMITIES: Lower extremities without edema bilaterally. Const: COMMON NORMALS: alert Resp: COMMON NORMALS: clear to auscultation bilaterally AUSCULTATION: clear to auscultation bilaterally Neuro: SENSORIUM/ORIENTATION: Yes alert Urinary Catheter Management^: Walters: Cath Placed During This Visit: yes, but has since been removed by the nurse Reason for Continuing Indwelling Catheter: Other Urinary Catheter Date of Insertion: 02/24/21 Urinary Catheter Time of Insertion: 21:30 Date Urinary Catheter Removed: 03/05/21 Time Urinary Catheter Discontinued: 14:15 Data : 03/08/21 04:46 03/08/21 04:46 A&P Assessment and plan (1) Acute systolic heart failure, first episode: Nonischemic cardiomyopathy/stress-induced cardiomyopathy Takotsubo syndrome due to intercurrent illness. Will optimize medicine, recommend beta- molly and BRINA inhibitor Status: Acute (2) Smoking addiction: Advised quitting smoking. Status: Inactive (3) COPD (chronic obstructive pulmonary disease): As per pulmonary and medicine Status: Acute Qualifiers: COPD type: chronic bronchitis Chronic bronchitis type: simple Qualified Code(s): J41.0 - Simple chronic bronchitis Attestations Medical Necessity Statement*: From a cardiovascular perspective patient can go home once okay with medicine Procedures Arterial Line Size (Gauge): 20 Coding Level of Care Code Established Pt Acute Telephone Operator Receptionist for Nayeli Dawkins Patient Type Established History Detailed Exam Detailed Medical Decision Making Moderate Complexity Diagnoses Acute systolic heart failure, first episode I50.21 Smoking addiction F17.200 COPD (chronic obstructive pulmonary disease) J41.0 COPD type: chronic bronchitis Chronic bronchitis type: simple
--- NOTE | 2021-03-08 12:02 | PC.OT ---
OT note: Attempted OT this morning, pt was off floor (when on med/surg) and at cardiac cath procedure. Will hold at this time.
--- NOTE | 2021-03-08 14:45 | PC.NURSE ---
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
[2021-03-08] MEDS: FUROsemide 20 mg Tablet PO (15:08)
--- NOTE | 2021-03-08 15:13 | P.DS_ITS ---
Discharge Providers Date of Admission: 02/23/21 22:24 Date of Discharge: March 08, 2021 Attending Provider at Admission: Dasha Mckeon MD Attending Provider at Discharge: Sona Nichols MD Consults: Cardiology, pulmonology Primary Care Provider: Violeta Tavarez MD Diagnoses at Discharge Discharge Diagnosis (1) Acute systolic heart failure, first episode: Status: Acute (2) Smoking addiction: Status: Inactive (3) COPD (chronic obstructive pulmonary disease): Status: Acute Qualifiers: COPD type: chronic bronchitis Chronic bronchitis type: simple Qualified Code(s): J41.0 - Simple chronic bronchitis Reason for Visit Reason for Visit: SOB Hospital Course Hospital Course Mrs. Doe presented with difficulty breathing. She was initially treated with BiPAP and usual COPD management. She subsequently required intubation. Pulmonology and subsequently cardiology were consulted. She was treated with antibiotics for coverage of pneumonia, steroids and breathing treatments for COPD exacerbation. She also received diuretics for CHF. Echocardiogram was suboptimal in terms of being able to determine ejection fraction but look to be consistent with decreased ejection fraction and systolic CHF. She was diuresed around 7 L of fluid. She initially showed evidence of persistent hypercapnia. Throughout the course of the hospital stay respiratory status improved. She was extubated to BiPAP. In the couple of days prior to discharge she was no longer wearing BiPAP very much. BiPAP was intentionally held in a room air ABG was checked and did not show continued hypercapnia. Patient does not currently meet criteria for BiPAP at home. Sleep study has been ordered to evaluate this further and have also arranged for her to follow-up with pulmonology. She underwent cardiac catheterization that did not show any obstructive disease. Feeling is that she probably has a stress-induced cardiomyopathy as part of her presentation this time. Recommendation was for beta-blockade and BRINA inhibitor. I have not continued diuretic therapy though it may be required at some point going forward. Patient had a DVT in the right upper extremity associated with an arterial line. Line was removed. She has been treated with anticoagulation and current plan is to continue it for 2 to 3 months. Arm is doing much better with treatment. She has completed antibiotics. She is been getting up and moving around. Overall doing better. Plan had been for her to go to rehab but she will be discharged home. Reviewed with her and her findings and plans. Both were given an opportunity to ask questions. Physical Exam Narrative: EXAM NARRATIVE: Seen post catheterization.Patient is awake and alert. Right upper extremity looks good. TR band has recently been released. Lungs are clear. No rales or wheezes currently. No rhonchi. Cardiovascular exam reveals a regular rate and rhythm. Abdomen is soft nontender. No pitting edema. For text Urinary Catheter Management^: Walters: Cath Placed During This Visit: yes, but has since been removed by the nurse Reason for Continuing Indwelling Catheter: Other Urinary Catheter Date of Insertion: 02/24/21 Urinary Catheter Time of Insertion: 21:30 Date Urinary Catheter Removed: 03/05/21 Time Urinary Catheter Discontinued: 14:15 Discharge Data Data Completed and Pending: Completed Studies During Hospitalization Category Date Time Status CT angio chest PE protcl [id number] Stat Cat Scan 02/23/21 23:12 Completed CXRP [XR chest 1V portable [id number]] U rgent Exams 02/27/21 08:39 Completed XR chest 1V dawit ble [id number] Routine Exams 02/24/21 14:15 Completed XR chest 1V dawit ble [id number] Routine Exams 02/25/21 06:00 Completed XR chest 1V dawit ble [id number] Routine Exams 02/26/21 06:00 Completed XR chest 1V dawit ble [id number] Routine Exams 02/26/21 06:28 Completed XR chest 1V dawit ble [id number] Routine Exams 02/27/21 06:00 Completed XR chest 1V dawit ble [id number] Routine Exams 02/28/21 08:15 Completed XR chest 1V dawit ble [id number] Routine Exams 03/01/21 06:00 Completed XR chest 1V dawit ble [id number] Routine Exams 03/02/21 07:53 Completed XR chest 1V dawit ble 30905 Routine Exams 03/04/21 07:00 Completed XR chest 1V dawit ble [id number] Stat Exams 02/25/21 16:06 Completed XR chest 1V dawit ble [id number] Stat Exams 02/25/21 19:55 Completed XR chest 1V dawit ble [id number] Urgent Exams 02/23/21 20:31 Completed CV echo complete* [id number] Routine Ultrasound 02/28/21 08:16 [place] [id number] Stat Ultrasound 03/01/21 05:00 Completed US liver [id number] Ro utine Ultrasound 02/28/21 13:21 Completed Laboratory Last Values WBC 20.1 10^3/uL (4.0 -10.0) H 03/08/21 04:46 RBC 3.60 10^6/uL (4.1 -5.3) L 03/08/21 04:46 Hgb 11.4 g/dL (11.5-1 5.3) L 03/08/21 04:46 Hct 34.9 % (37.0-47.0 ) L 03/08/21 04:46 MCV 96.9 fL (81-99) D 03/08/21 04:46 MCH 31.7 pg (28.0-34. 0) 03/08/21 04:46 MCHC 32.7 g/dL (30.0-3 6.0) 03/08/21 04:46 RDW 11.9 % (12.1-15.1 ) L 03/08/21 04:46 Plt Count 300 10^3/cmm (130 -400) 03/08/21 04:46 MPV 11.7 fL (7.4-10.4 ) H 03/08/21 04:46 Neut % (Auto) 62.2 % 03/08/21 04:46 Lymph % (Auto) 22.4 % 03/08/21 04:46 Phillips % (Auto) 8.0 % 03/08/21 04:46 Eos % (Auto) 0.6 % 03/08/21 04:46 Baso % (Auto) 0.6 % 03/08/21 04:46 Neut # (Auto) 12.47 10^3/uL (1. 8-7.7) H 03/08/21 04:46 Lymph # (Auto) 4.5 10^3/uL (0.8- 4.8) 03/08/21 04:46 Phillips # (Auto) 1.6 10^3/uL (0.2- 0.9) H 03/08/21 04:46 Eos # (Auto) 0.1 10^3/uL (0.0- 0.8) 03/08/21 04:46 Baso # (Auto) 0.1 10^3/uL (0.0- 0.1) 03/08/21 04:46 Nucleated RBC % (a uto) 0 % 03/08/21 04:46 Total Counted 100 (0-100) 03/07/21 08:48 Atypical Lymphs % 0.0 % (0-5) 03/07/21 08:48 Absolute Neutrophi ls 10.2 10^3/cmm (1. 4-6.5) H 03/07/21 08:48 Segmented Neutroph ils 60 % 03/07/21 08:48 Abs Segm Neuts (Ma n) 9.8 10/cmm (1.6-7 .1) H 03/07/21 08:48 Band Neutrophils 2.0 % 03/07/21 08:48 Abs Band Neuts (Ma n) 0.3 10^3/cmm (0.0 -1.2) 03/07/21 08:48 Absolute Lymphocyt es 4.6 10^3/cmm (1.2 -3.4) H 03/07/21 08:48 Lymphocytes (Manua l) 28 % 03/07/21 08:48 Monocytes (Manual) 4.0 % 03/07/21 08:48 Absolute Monocytes 0.7 10^3/cmm (0.1 -0.6) H 03/07/21 08:48 Eosinophils (Manua l) 0 % 03/07/21 08:48 Absolute Eosinophi ls 0.0 10^3/cmm (0.0 -0.7) 03/07/21 08:48 Basophils (Manual) 0.0 % 03/07/21 08:48 Absolute Basophils 0.0 10^3/cmm (0.0 -0.2) 03/07/21 08:48 Metamyelocytes 6.0 % 03/07/21 08:48 Nucleated RBCs # 0.0 /100WBC 03/08/21 04:46 Platelet Estimate Normal (Normal) 03/07/21 08:48 D-Dimer 0.71 ug/mIFEU (0- 0.59) H 02/23/21 20:15 Specimen Type Arterial 03/08/21 07:50 Sample Site Brachial, left 03/08/21 07:50 ABG pH 7.49 (7.35-7.45) H 03/08/21 07:50 ABG pCO2 39.3 mmHg (35-45) 03/08/21 07:50 ABG pO2 79.3 mmHg (80.0-1 00.0) L 03/08/21 07:50 ABG HCO3 29.9 mmol/L (22-2 6) H 03/08/21 07:50 ABG O2 Saturation 96.7 02/28/21 19:55 ABG Base Excess 6.1 mmol/L (-2.0- 2.0) H 03/08/21 07:50 Prosper Test N/a 03/08/21 07:50 A-a O2 Gradient 15.6 mmHg (5-10) H 02/28/21 19:55 Hematocrit 39.6 % (37-47) 03/08/21 07:50 Hgb O2 Saturation 95.0 % (95-100) 02/28/21 19:55 Carboxyhemoglobin 0.8 %THgb (0.4-20 .1) 02/28/21 19:55 Methemoglobin 1.0 % (0.4-1.5) 02/28/21 19:55 Total Hemoglobin 12.3 g/dL (12-16) 02/28/21 19:55 Sodium 150.0 mmol/L (131 -143) H 02/28/21 19:55 Potassium 4.6 mmol/L (3.5-5 .0) 02/28/21 19:55 Glucose 136.0 mg/dL (70-1 15) H 02/28/21 19:55 Ionized Calcium 1.3 mmol/L (1.1-1 .4) 02/28/21 19:55 Respiration Rate 13.0 % 02/25/21 20:50 O2 Delivery Device Room air 03/08/21 07:50 O2 Liters/Min 6.0 % 03/02/21 05:13 Mechanical Rate 14.0 02/24/21 17:35 Spontaneous Rate 13.0 % 02/25/21 20:50 FiO2 35.0 % 03/03/21 04:50 Tidal Volume 0.50 03/01/21 05:25 PEEP 6.0 cmH20 03/01/21 05:25 Specimen Drawn By hiram 02/25/21 20:50 Customer Service Manager ID Gd 03/08/21 07:50 Sodium 140 mmol/L (136-1 45) 03/08/21 04:46 Potassium 3.5 mmol/L (3.5-5 .1) 03/08/21 04:46 Chloride 103 mmol/L (98-10 7) 03/08/21 04:46 Carbon Dioxide 28 mmol/L (22-29) 03/08/21 04:46 Anion Gap 12.5 (5-19) 03/08/21 04:46 BUN 9 mg/dL (6-20) 03/08/21 04:46 Creatinine 0.5 mg/dL (0.5-0. 9) 03/08/21 04:46 GFR Calculation 130.6 mL/min (90- 130) H 03/08/21 04:46 Glucose 87 mg/dL (65-115) 03/08/21 04:46 Calculated Osmolal ity 288 mOsm/kg (285- 295) 03/08/21 04:46 Lactate 0.9 mmol/L (0.5-2 .2) 02/28/21 09:15 Calcium 9.2 mg/dL (8.5-10 .5) 03/08/21 04:46 Phosphorus 2.6 mg/dL (2.5-4. 5) 03/08/21 04:46 Magnesium 1.9 mg/dL (1.7-2. 3) 03/08/21 04:46 Total Bilirubin 0.7 mg/dL (0.15-1 .2) 03/07/21 08:48 AST 41 U/L (0-32) H 03/07/21 08:48 ALT 125 U/L (0-33) H 03/07/21 08:48 Alkaline Phosphata se 67 IU/L (35-105) 03/07/21 08:48 Troponin T Baselin e 7 ng/L (0-10) 02/23/21 20:15 Troponin T 120 Min tasia 8.84 ng/L (0-10) 02/23/21 22:10 Delta Troponin T 1.84 ABS# (0-10) 02/23/21 22:10 C-Reactive Protein 15.5 mg/L (0.0-4. 9) H 03/03/21 03:23 NT-Pro-B Natriuret Pep 3030 pg/mL (0-125 ) H 03/07/21 08:48 Total Protein 5.4 g/dL (6.6-8.7 ) L 03/07/21 08:48 Albumin 3.1 g/dL (3.5-5.2 ) L 03/07/21 08:48 Globulin 2.3 g/dL (1.3-4.6 ) 03/07/21 08:48 [id number] n 171 mg/dL (83-199 ) 02/26/21 04:43 Procalcitonin 0.10 ng/mL (0-0.5 ) 03/03/21 03:23 Urine Color Yellow (Yellow) 02/23/21 01:35 Urine Appearance Clear (CLEAR) 02/23/21 01:35 Urine pH 5 (5-7) 02/23/21 01:35 Ur Specific Gravit y 1.020 (1.005-1.0 30) 02/23/21 01:35 Urine Protein Neg (Negative) 02/23/21 01:35 Urine Glucose (UA) Norm (Normal) 02/23/21 01:35 Urine Ketones Negative (Negati ve) 02/23/21 01:35 Urine Blood 3+ (Negative) H 02/23/21 01:35 Urine Nitrate Negative (Negati ve) 02/23/21 01:35 Urine Bilirubin Neg (Negative) 02/23/21 01:35 Urine Urobilinogen Norm mg/dL (Negat edgar) 02/23/21 01:35 Ur Leukocyte Jo Ann ase Trace (Negative) H 02/23/21 01:35 Urine RBC 5-10 /hpf (0-2) H 02/23/21 01:35 Urine WBC 15-25 /hpf (0-5) H 02/23/21 01:35 Ur Squamous Epith Cells 15-25 /hpf (0-5) H 02/23/21 01:35 Amorphous Sediment Not Reportable 02/23/21 01:35 Urine Bacteria 3+ /hpf (NONE) H 02/23/21 01:35 Hyaline Casts 0-4 /lpf H 02/23/21 01:35 Urine Mucus 1+ /hpf 02/23/21 01:35 Hepatitis A IgM Ab Non-reactive (No nreactive) 02/28/21 09:45 Hep Bs Antigen Non-reactive (No nreactive) 02/28/21 09:45 Hep B Core IgM Ab Non-reactive (No nreactive) 02/28/21 09:45 Hepatitis C Antibo dy Non-reactive (No nreactive) 02/28/21 09:45 HIV 1&2 Ab & HIV 1 Ag Non-reactive (No n-Reactiv) 02/28/21 09:45 HIV 1&2 Antibody Non-reactive (No n-Reactiv) 02/28/21 09:45 SARS-CoV-2 Ag (Rap id) Negative (Negati ve) 02/23/21 20:48 Pending at discharge Category Date Time Status CHART CLERK request for service Routin e Exams 03/08/21 09:29 Taken Cardiac catheterization did not reveal any obstructive disease per cardiology Vitals: Last Vital Signs Temp 97.7 F 03/08/21 11:17 Pulse 80 03/08/21 11:55 Resp 16 03/08/21 11:45 BP 115/72 03/08/21 11:17 Pulse Ox 98 03/08/21 14:29 Discharge Plan Discharge Patient Disposition: Home Condition: Stable Prescriptions: New nystatin 100,000 unit/mL Suspension 100,000 unit PO QID Qty: 60 RF: 0 atorvastatin 40 mg Tablet 40 mg PO DAILY Qty: 30 RF: 0 fluticasone propionate 50 mcg/actuation [place],Suspension 1 spray nasal DAILY Qty: 16 RF: 0 Eliquis 5 mg tablet 5 mg PO BID Qty: 60 RF: 0 lisinopril 10 mg tablet 5 mg PO DAILY Qty: 30 RF: 0 metoprolol tartrate 25 mg tablet 12.5 mg PO BID Qty: 30 RF: 0 Continued albuterol sulfate 2.5 mg /3 mL (0.083 %) solution for nebulization 2.5 mg inhalation Q4H PRN (Reason: Shortness Of Breath) 30 Days Qty: 540 RF: 5 albuterol sulfate [ProAir HFA] 90 mcg/actuation HFA aerosol inhaler 2 puff inhalation Q6H PRN (Reason: bronchospasm) Qty: 8.5 RF: 4 fluticasone propion-salmeterol [Advair Diskus] 250-50 mcg/dose blister with device 1 inh inhalation Q12H Qty: 60 RF: 5 prednisone 20 mg tablet 20 mg PO DAILY Qty: 20 RF: 0 Discontinued ibuprofen 800 mg tablet 800 mg PO TID PRN (Reason: Pain) Qty: 90 RF: 1 Discharge Orders: Discharge Order (Routine); Ordered 03/08/21 Ordered By: Sona Nichols Other Ambulatory Orders: Basic Metabolic Panel (Routine) Timeframe: 1 Week Facility: [facility] - Location: Lab - Main Lab Ordered By: Sona Nichols Sleep Study/Titration (Routine) Timeframe: 3 Weeks Location: None Selected Ordered By: Sona Nichols Referrals: Violeta Tavarez MD [Primary Care Provider] - 4-7 days Dasha Munguia MD [Physician] - 2 weeks Joe Flores MD [Physician] - 2 weeks Discharge Diet: Regular Discharge Activity: Increase activity as tolerated Patient Instructions: Metoprolol (By mouth), Lisinopril (By mouth), Apixaban (By mouth), Heart Failure (DC), Left Heart Catheterization (DC), How to Stop Smoking (DC), Cigarette Smoking and Your Health (GEN), Chronic Obstructive Pulmonary Disease (DC) Activity Restrictions/Additional Instructions: You presented with significant shortness of breath or admitted to the hospital. Initially treated with BiPAP and oxygen in addition to medications. You had significant worsening over the next day or so and required intubation. It took a while to get you successfully off of the ventilator. You were seen by both pulmonology and cardiology during the course of the hospital stay. You received diuretic therapy for volume overload and systolic heart failure symptoms. Your ejection fraction was decreased on echocardiogram though not specifically quantifiable under the acute circumstances. You were treated with antibiotics for pneumonia, steroids and breathing treatments for your COPD. Cardiac catheterization was done on March 08. This did not show any evidence of obstructive cardiac disease. It is felt that she had a stress-induced cardiomyopathy related to respiratory issues. Cardiology currently recommends continuing low-dose BRINA inhibitor and beta-blockade which have been ordered. I have not continued diuretic therapy though may require reinitiation of this. You have completed antibiotics. You are continuing to taper down on steroids. During the hospital stay you were found to have a blood clot in the right upper extremity. There was no evidence of pulmonary emboli on chest imaging. You had had an arterial line so this is felt to be a catheter associated event. The catheter was discontinued. You were treated empirically with full anticoagulation here in the hospital and will be transitioning to anticoagulation by mouth with a new medication called Eliquis, a blood thinner. Plan currently is for this to continue for 3 months. It was initially thought that she would need to go home on BiPAP therapy. BiPAP was held the last couple of days that you were here. Room air ABG checked on the day of discharge looked good with gas showing 7.4 . I have arranged for an outpatient sleep study to see if you have sleep apnea or other indicator to necessitate BiPAP in the home setting. I have ordered lab work to be done in about a week to ensure that your blood counts look okay and your renal function is doing well. It is important to keep follow-up appointments as noted. Discharge Attestations Time Spent in Discharge Care*: greater than 30 min Specific Discharge Activities: educating patient, educating and/or supporting family/caregiver, discussing with pcp/other providers, discussing with case management associate/social workers/dc planners, documenting/other paperwork and evaluating patient/reviewing data Status at Discharge: Cognitive status at discharge: cognitively intact , Behavioral status at discharge: cooperative , Functional status at discharge: independent ambulation Overall status at discharge: patient is progressing back to baseline Quality Metrics Clinical Quality Measures During this hospital stay, did patient experience: None Coding Level of Care Code Acute Chg DC note Diagnoses Acute systolic heart failure, first episode I50.21 Smoking addiction F17.200 COPD (chronic obstructive pulmonary disease) J41.0 COPD type: chronic bronchitis Chronic bronchitis type: simple
--- NOTE | 2021-03-08 17:29 | PC.NURSE ---
discharge instructions given and explained.pt verb understanding of instructions.discharged via w/c to exit.spouse to drive pt home.
== END 2021-03-08 17:33 | disposition home or self-care (01) | DRG 207 ==
LOC: ER 22:55 → ICU 22:56 → MEDSURG 03-04 16:37 → CSU 03-08 11:30
PROVIDERS: Family Medicine; Internal Medicine; Internal Medicine Cardiovascular Disease; Internal Medicine Critical Care Medicine; Internal Medicine Pulmonary Disease; Admitting Provider Internal Medicine; Emergency Provider Family Medicine; PCP Family Medicine; Visit Provider Hospitalist
PROC: B2110ZZ Fluoroscopy of Multiple Coronary Arteries using High Osmolar Contrast (ICD-10-PCS; principal; 2021-03-08 10:00)
DX: J96.22 Acute and chronic respiratory failure with hypercapnia (principal); I50.21 Acute systolic (congestive) heart failure; J18.9 Pneumonia, unspecified organism; J44.1 Chronic obstructive pulmonary disease with (acute) exacerbation; I51.81 Takotsubo syndrome; E87.2 Acidosis; E87.0 Hyperosmolality and hypernatremia; I82.621 Acute embolism and thrombosis of deep veins of right upper extremity; J96.21 Acute and chronic respiratory failure with hypoxia; I95.9 Hypotension, unspecified; F17.210 Nicotine dependence, cigarettes, uncomplicated; K57.90 Diverticulosis of intestine, part unspecified, without perforation or abscess without bleeding; Y83.8 Other surgical procedures as the cause of abnormal reaction of the patient, or of later complication, without mention of misadventure at the time of the procedure; Y82.8 Other medical devices associated with adverse incidents; Y92.230 Patient room in hospital as the place of occurrence of the external cause
CPT/HCPCS: 36415; 36592; 36600; 51702; 71045; 71275; 76705; 80048; 80051; 80053; 80074; 81001; 82103; 82330; 82803; 82805; 83605; 83735; 83880; 84100; 84145; 84484; 85007; 85014; 85018; 85025; 85378; 86140; 86403; 87040; 87070; 87205; 87426; 87449; 87806; 93005; 93306; 93452; 93971; 94002; 94003; 94640; 94660; 94762; 94799; 96365; 96366; 96367; 96372; 96375; 97110; 97116; 97162; 97166; 97530; 97535; 99291; C1751; C1769; C1887; C1894; J0330; J0456; J0696; J1200; J1644; J1650; J1940; J1956; J2060; J2250; J2405; J2704; J2920; J2930; J3010; J3475; J3490; J7030; J7040; J7050; J7512; J7611; J7614; J7626; J7644; Q0144; Q9967

== ENCOUNTER → 2021-03-29 14:59 | Outpatient (BNVA) | payer MEDICAID, SELFPAY | PROVIDERS: PCP Family Medicine; Visit Provider Family Medicine | DX: I50.9 Heart failure, unspecified (principal); I95.1 Orthostatic hypotension; I82.621 Acute embolism and thrombosis of deep veins of right upper extremity; J41.0 Simple chronic bronchitis; D50.8 Other iron deficiency anemias; E87.6 Hypokalemia; G25.0 Essential tremor | CPT/HCPCS: 80048; 85025 ==

== ENCOUNTER 2021-04-11 20:00 | Outpatient (CLI) | payer MEDICAID, SELFPAY | END 2021-04-11 20:01 | disposition home or self-care (01) | LOC: SLEEP 04-12 08:53 | PROVIDERS: PCP Family Medicine; Visit Provider Hospitalist | DX: G47.10 Hypersomnia, unspecified (principal) | CPT/HCPCS: 95810 ==

== ENCOUNTER → 2021-05-12 11:12 | Outpatient (BNVA) | payer MEDICAID, SELFPAY | PROVIDERS: PCP Family Medicine; Visit Provider Family Medicine | DX: I82.621 Acute embolism and thrombosis of deep veins of right upper extremity (principal); E78.00 Pure hypercholesterolemia, unspecified; F17.200 Nicotine dependence, unspecified, uncomplicated; E87.6 Hypokalemia; I50.9 Heart failure, unspecified | CPT/HCPCS: 80053; 80061; 85025 ==

== ENCOUNTER 2021-05-17 09:38 | Outpatient (CLI) | payer MEDICAID, SELFPAY ==
--- NOTE | 2021-05-17 10:15 | USCV_ITS ---
Radha Doe Age: 50 Gender: F : 1970 Exam Date: 05/17/2021 10:05 Ordering Phys: Violeta Tavarez MD Technologist: [place] [facility] [place]: HX OF RT ARM THROMBUS HISTORY: RT ARM THROMBUS PROCEDURES: Venous duplex imaging was performed in only the right upper extremity. The following venous structures were evaluated: internal jugular vein, subclavian vein, axillary vein, and brachial veins. In addition, the basilic vein, cephalic vein, radial vein, and ulnar vein. FINDINGS: No evidence of deep vein thrombosis or superficial thrombophlebitis in the right upper extremity. Cephalic thrombophlebitis is gone. CONCLUSIONS No right upper extremity DVT. Resolved right cephalic thrombophlebitis. Dr. Gladys Olmos DO (Electronically Signed) Final Date: 17 May 2021 14:55 S
== END 2021-05-17 09:39 | disposition home or self-care (01) ==
LOC: RAD 09:40
PROVIDERS: PCP Family Medicine; Visit Provider Family Medicine
DX: I82.621 Acute embolism and thrombosis of deep veins of right upper extremity (principal)
CPT/HCPCS: 93971

== ENCOUNTER 2021-10-16 18:14 | Emergency (ER) | payer MEDICAID, SELFPAY ==
--- NOTE | 2021-10-16 18:16 | XRR_ITS ---
PROCEDURE INFORMATION: Exam: XR Left Foot Exam date and time: 10/16/2021 6:16 PM Age: 50 years old Clinical indication: Injury or trauma; Other: Dropped countertop on foot; Blunt trauma; Left TECHNIQUE: Imaging protocol: XR Left foot. Views: 3 or more views. COMPARISON: CR (LOW EXM, ) 10/16/2021 6:34 PM FINDINGS: Bones/joints: Osseous structures are intact. No evidence of fracture. Joint spaces are preserved. Soft tissues: Normal. XR/XR foot LT min 3V* [id number] IMPRESSION: No acute findings. Radiation Dose CTDIVOL = (mGy): DLP = (mGy-cm)
[2021-10-16 18:25] VITALS: BP 119/68; PULSE 100; RESP 16; TEMP 36.8; O2SAT 99
--- NOTE | 2021-10-16 18:29 | ED_ITS ---
HPI - Extremity Problem General: Chief complaint: Extremity Injury, Lower Stated complaint: Injury Left foot Time Seen by Provider: 10/16/21 18:29 History of Present Illness: HPI Narrative: 50-year-old female comes in today with injury to the left lower leg and foot that occurred today. Patient was carrying a piece of countertop and accidentally dropped it striking her anterior lower leg and top of her proximal foot. Patient reports pain and discomfort wi th ambulation. Patient appears well. Patient appears no acute distress. Review of Systems General: Reports: 10 or more systems reviewed and unremarkable except in HPI and below Musc: Reports: other (Left foot injury) [facility] ED PFS: Medical History (Updated 10/16/21 @ 18:45 by LAUREN Lara) Cardiomyopathy CHF (congestive heart failure) COPD (chronic obstructive pulmonary disease) Diverticular disease of intestine with perforation and abscess (~06/2020) Essential hypertension Surgical History H/O tubal ligation H/O: hysterectomy S/P excision of ganglion cyst Family History Father Diabetes Mother Diabetes Social History Quit status (tobacco): has quit using tobacco Year quit tobacco: January 2021 [id number] Second hand smoke exposure: No Smoking risk assessment/counseling performed?: Yes Alcohol intake: never Lives independently: Yes Household members: spouse Housing: House Marital status: service: No Current occupational status: unemployed Previous occupational history: Worked at [employer] Pets and animals: Yes History of recent travel: No Current gender identity: Female Female Reproductive History: Date of last menstrual period: 11/26/14 Physical Exam Const: COMMON NORMALS: no acute distress and patient oriented x3 GENERAL APPEARANCE: cooperative HENMT: COMMON NORMALS: normocephalic HEAD & SCALP: normal to inspection and normocephalic Eye: GENERAL EYE: appearance normal, both eyes and all related structures Neck/C-Spine: COMMON NORMALS: full ROM Chest: COMMONS NORMALS: normal inspection of the chest Resp: COMMON NORMALS: normal respiratory effort EFFORT & INSPECTION: Yes able to speak in complete sentences Cardio: COMMON NORMALS: regular rate and regular rhythm RATE: regular rate RHYTHM: regular rhythm GI: COMMON NORMALS: non-tender Extremity: NARRATIVE EXTREMITY EXAM: Superficial abrasion noted to the distal anterior left lower leg and dorsal left foot. Minimal ecchymosis is noted. Area is tender to touch. Neuro: COMMON NORMALS: patient oriented x3 and moves all extremities Psych: COMMON NORMALS: mental status grossly normal and cooperative Skin: COMMON NORMALS: no rashes or lesions noted GENERAL SKIN EXAM: no rashes or lesions noted Course Vital Signs: Vital signs: Vital Signs Temperature 98.2 F 10/16/21 18:25 Pulse Rate 100 10/16/21 18:34 Respiratory Rate 18 10/16/21 18:34 Blood Pressure 119/68 10/16/21 18:34 Pulse Oximetry 99 10/16/21 18:34 MDM - Extremity (Nontraumatic) MDM Narrative: Medical decision making narrative: 50-year-old female comes in with injury to the left foot and lower leg. Patient reports dropping a piece of countertop that hit the bottom part of her leg and the top of her left foot. On exam he can note a superficial abrasion to the leg and foot. There is also some mild swelling tenderness and no obvious ecchymosis at this time. Differential diagnosis includes but not limited to fracture, contusion, sprain. X-ray noted no fractures or dislocations. Reviewed exam with patient recommended treatment with elastic bandage and crutches until she can bear weight comfortably. Recommend follow-up with primary care or front office java developer for further instruction and management. Patient reported understanding. Discharge Plan Discharge Patient Disposition: Home Clinical Impression: Contusion of foot, left Qualifiers: Encounter type: initial encounter Qualified Code(s): S90.32XA - Contusion of left foot, initial encounter Condition: Stable Prescriptions: No Action albuterol sulfate 2.5 mg /3 mL (0.083 %) solution for nebulization 2.5 mg inhalation Q4H PRN (Reason: Shortness Of Breath) 30 Days Qty: 540 RF: 5 metoprolol succinate 25 mg tablet extended release 24 hr 12.5 mg PO DAILY Qty: 45 RF: 3 atorvastatin 20 mg tablet 20 mg PO DAILY Qty: 90 RF: 1 albuterol sulfate [ProAir HFA] 90 mcg/actuation HFA aerosol inhaler 2 puff inhalation Q6H PRN (Reason: bronchospasm) Qty: 8.5 RF: 4 Anoro Ellipta 62.5-25 mcg/actuation blister with device 1 inh inhalation DAILY Qty: 60 RF: 6 lisinopril 5 mg tablet See Rx Instructions .ROUTE .COMPLEX Qty: 90 RF: 1 ibuprofen 800 mg tablet 800 mg PO Q8H PRN (Reason: pain) Qty: 90 RF: 1 prenat.vits,neisha,[id number] Tablet 1 tab PO DAILY Qty: 90 RF: 3 Discharge Orders: Discharge ED (Routine); Ordered 10/16/21 Ordered By: Daron Naranjo Referrals: Violeta Tavarez MD [Primary Care Provider] - Discharge Diet: Usual diet Discharge Activity: Increase activity as tolerated Patient Instructions: Opioid Safety Activity Restrictions/Additional Instructions: Home and rest. Elevate foot and ice foot for comfort and pain. Use acetaminophen and ibuprofen for further pain. Increase activity as tolerated. I would expect the pain to persist up to 2 to 3 weeks. You should notice improvement within 1 week. If you continue to have significant pain without improvement I would recommend repeat x-ray. Follow-up with primary care as needed. Return to the ER for new concerns. Coding Level of Care Code ED Sign Painter Apprentice for Nayeli Fwgio Exam Comprehensive
--- NOTE | 2021-10-16 18:31 | XRR_ITS ---
PROCEDURE INFORMATION: Exam: XR Left Tibia and Fibula Exam date and time: 10/16/2021 6:31 PM Age: 50 years old Clinical indication: Injury or trauma; Other: Dropped countertop on foot; Blunt trauma; Lower leg; Left TECHNIQUE: Imaging protocol: XR Left tibia and fibula. Views: 2 views. COMPARISON: No relevant prior studies available. FINDINGS: Bones/joints: Osseous structures are intact. No evidence of fracture. Soft tissues: Normal. XR/XR tibia fibula LT 2V [id number] IMPRESSION: No acute findings. Radiation Dose CTDIVOL = (mGy): DLP = (mGy-cm)
[2021-10-16 18:34] VITALS: BP 119/68; PULSE 100; RESP 18; O2SAT 99
== END 2021-10-16 18:57 | disposition home or self-care (01) ==
PROVIDERS: Emergency Provider Nurse Practitioner Family; PCP Family Medicine
DX: S90.32XA Contusion of left foot, initial encounter (principal); I11.0 Hypertensive heart disease with heart failure; I50.9 Heart failure, unspecified; J44.9 Chronic obstructive pulmonary disease, unspecified; Z87.891 Personal history of nicotine dependence; W20.8XXA Other cause of strike by thrown, projected or falling object, initial encounter
CPT/HCPCS: 73590; 73630; 99283; E0114

== ENCOUNTER → 2022-01-12 11:46 | Outpatient (BNVA) | payer MEDICAID, SELFPAY | PROVIDERS: PCP Family Medicine; Visit Provider Family Medicine | DX: I11.0 Hypertensive heart disease with heart failure (principal); E78.00 Pure hypercholesterolemia, unspecified; I42.9 Cardiomyopathy, unspecified; I50.9 Heart failure, unspecified; J41.0 Simple chronic bronchitis; I42.0 Dilated cardiomyopathy; F17.200 Nicotine dependence, unspecified, uncomplicated | CPT/HCPCS: 80053; 80061; 85025 ==

== ENCOUNTER 2022-02-02 06:24 | Outpatient (CLI) | payer MEDICAID, SELFPAY ==
--- NOTE | 2022-02-02 06:30 | USCV_ITS ---
Radha Doe Age: 51 Gender: F : 1970 Exam Date: 02/02/2022 06:38 Ordering Phys: Violeta Tavarez MD Technologist: DEEDEE Exam Location: [facility] – [place] Indication: f/u 11 months dx cardiomyopathy BP: 110 / 70 HR: 67 Rhythm: Sinus Technical Quality: Adequate MEASUREMENTS (Male / Female) Normal Values 2D ECHO LV Diastolic Diameter PLAX 2.3 cm 4.2 - 5.9 / 3.9 - 5.3 cm LV Systolic Diameter PLAX 1.2 cm IVS Diastolic Thickness 1.9 cm 0.6 - 1.0 / 0.6 - 0.9 cm IVS Systolic Thickness 2.0 cm LVPW Diastolic Thickness 1.8 cm 0.6 - 1.0 / 0.6 - 0.9 cm LVPW Systolic Thickness 2.3 cm LVOT Diameter 2.0 cm LV Ejection Fraction 2D Teich 85.8 % LV Ejection Fraction MOD 2C 61.7 % LV Ejection Fraction 2C AL 63.0 % LA Diameter 2.5 cm LA Width 3.1 cm LA Height 4.4 cm RA Width 3.3 cm RA Height 4.3 cm Aorta at Sinotubular Diameter 2.4 cm M-MODE Aortic Annulus Diameter 2.6 cm LA Ao Ratio MM 1.0 MV E Point Septal Separation 0.8 cm DOPPLER AV Peak Velocity 153.0 cm/s LVOT Peak Velocity 101.0 cm/s AV Area Cont Eq vti 1.7 cm squared AV Area Cont Eq pk 2.1 cm squared MV Area PHT 3.0 cm squared Mitral E to A Ratio 1.0 MV E' Velocity 51.0 cm/s Mitral E to MV E' Ratio 6.5 Mitral E to LV E' Lateral Ratio 5.9 Mitral E to LV E' Septal Ratio 7.1 TR Peak Velocity 127.8 cm/s TR Peak Gradient 6.5 mmHg TR Mean Velocity 87.6 cm/s TR Mean Gradient 3.4 mmHg TR Velocity Time Integral 26.6 cm PV Peak Velocity 84.0 cm/s FINDINGS Left Ventricle Normal left ventricular size. LV systolic function is normal with EF of 60-65%. No regional wall motion abnormalities. Diastolic function is normal Right Ventricle The right ventricle is normal in size and function. Right Atrium The right atrium is normal in size. Left Atrium The left atrium is normal in size. Mitral Valve Structurally normal mitral valve without significant stenosis or prolapse. There is trace mitral regurgitation. Aortic Valve Structurally normal aortic valve without significant sclerosis or stenosis. There is no aortic regurgitation. Tricuspid Valve Structurally normal tricuspid valve without significant stenosis. Trace tricuspid regurgitation. Pulmonary artery systolic pressure is normal. Pulmonic Valve Structurally normal pulmonic valve without significant stenosis. There is no pulmonic regurgitation. Pericardium Normal pericardium without effusion. Aorta Normal ascending aorta dimension. CONCLUSIONS LV systolic function is normal with EF of 60 to 65%. Trace mitral regurgitation. Trace tricuspid regurgitation Compared to prior echocardiogram from 02/28/2021, LV systolic function has normalized now Matthew Romo MD (Electronically Signed) Final Date: 03 February 2022 17:25 S
== END 2022-02-02 06:25 | disposition home or self-care (01) ==
PROVIDERS: PCP Family Medicine; Visit Provider Family Medicine
DX: I11.0 Hypertensive heart disease with heart failure (principal); I42.9 Cardiomyopathy, unspecified; I50.9 Heart failure, unspecified; I08.1 Rheumatic disorders of both mitral and tricuspid valves
CPT/HCPCS: 93306

== ENCOUNTER 2022-02-27 14:14 | Outpatient (CLI) | payer MEDICAID, SELFPAY ==
--- NOTE | 2022-02-27 14:18 | MM_ITS ---
WS: [email or web address] BILATERAL SCREENING 3D TOMOSYNTHESIS DIGITAL MAMMOGRAM WITH CAD HISTORY: SCREENING COMPARISON: 02/16/2021, 01/25/2021, 11/15/2018 and 10/12/2017 Bilateral CC and MLO views submitted. Computer aided detection analyzed. Breast composition: The breasts are heterogeneously dense, which may obscure small masses. No suspici ous masses, microcalcifications or change in the architectural distortion. The area of mild distortio n seen on the LEFT CC projection is again identified as seen on the prior study from last year. Ther e was no mass identified. No interval change. This does appear stable. MM/[place] [id number] IMPRESSION: BI-RADS: 2-Benign FOLLOW UP: 1 Year Follow-up
== END 2022-02-27 14:15 | disposition home or self-care (01) ==
LOC: RADSHAW 14:15
PROVIDERS: PCP Family Medicine; Visit Provider Family Medicine
DX: Z12.31 Encounter for screening mammogram for malignant neoplasm of breast (principal)
CPT/HCPCS: 77063; 77067

== ENCOUNTER → 2022-07-27 09:01 | Outpatient (BNVA) | payer MEDICAID, SELFPAY | PROVIDERS: PCP Family Medicine; Visit Provider Internal Medicine Critical Care Medicine | DX: J41.0 Simple chronic bronchitis (principal); Z87.891 Personal history of nicotine dependence; J43.2 Centrilobular emphysema | CPT/HCPCS: 99214 ==

== ENCOUNTER 2022-09-29 12:51 | Outpatient (CLI) | payer MEDICAID, SELFPAY ==
--- NOTE | 2022-09-29 12:57 | CT_ITS ---
WS: [email or web address] LDCT LUNG CANCER SCREENING TECHNIQUE: Noncontrast CT of the chest with coronal and sagittal reformatted images. CLINICAL INFORMATION: Lung cancer screening COMPARISON: CTA chest February 23, 2021 DLP: 77.69 mGy.cm DIvol: Mean CTDIvol: 1.60 (mGy) All CT scans at [facility] use at least one of these dose optimization techniques: automat ed exposure control; mA and/or kV adjustment per patient size (includes targeted exams where dose is matched to clinical indication); or iterative reconstruction. FINDINGS: Fibrosis in the RIGHT greater than LEFT lung apices.Advanced chronic emphysematous changes worse in the upper lobes. No acute pulmonary infiltrates. No focal pneumonia or pleural fluid. No jaziel picious pulmonary parenchymal opacities. Normal caliber thoracic aorta. No mediastinal or hilar lymphadenopathy. No axillary lymphadenopathy. Normal GE junction. Cholelithiasis. Adrenal glands are normal. CT/CT lung screening [id number] IMPRESSION: LUNG-RADS: 1-Negative FOLLOW UP: 12 Month: Continue annual screening with LDCT
== END 2022-09-29 12:52 | disposition home or self-care (01) ==
LOC: RAD 12:52
PROVIDERS: PCP Family Medicine; Visit Provider Internal Medicine Pulmonary Disease
DX: Z12.2 Encounter for screening for malignant neoplasm of respiratory organs (principal); Z87.891 Personal history of nicotine dependence
CPT/HCPCS: 71271

== ENCOUNTER 2023-03-05 11:55 | Outpatient (CLI) | payer MEDICAID, SELFPAY ==
--- NOTE | 2023-03-05 12:04 | MM_ITS ---
WS: [email or web address] SCREENING DIGITAL TOMOSYNTHESIS MAMMOGRAM WITH CAD HISTORY: SCREENING COMPARISON: 02/27/2022, 01/25/2021 and 11/20/2019 Bilateral CC and MLO with tomosynthesis views submitted. Synthetic mammography reviewed. Computer aid ed detection analyzed. Breast composition: There are scattered areas of fibroglandular density. No suspicious masses, microc alcifications or architectural distortion. MM/[place] [id number] IMPRESSION: BI-RADS: 1-Negative FOLLOW UP: 1 Year Follow-up
== END 2023-03-05 11:56 | disposition home or self-care (01) ==
LOC: RAD 11:59
PROVIDERS: PCP Family Medicine; Visit Provider Family Medicine
DX: Z12.31 Encounter for screening mammogram for malignant neoplasm of breast (principal)
CPT/HCPCS: 77063; 77067

== ENCOUNTER → 2023-03-07 16:08 | Outpatient (BNVA) | payer MEDICAID, SELFPAY | PROVIDERS: PCP Family Medicine; Visit Provider Internal Medicine Pulmonary Disease | DX: T78.40XA Allergy, unspecified, initial encounter (principal); X58.XXXA Exposure to other specified factors, initial encounter | CPT/HCPCS: 36415; 82785; 86003; 99214 ==

== ENCOUNTER → 2023-09-06 13:04 | Outpatient (BNVA) | payer MEDICAID, SELFPAY | PROVIDERS: PCP Family Medicine; Visit Provider Internal Medicine Pulmonary Disease | DX: J41.0 Simple chronic bronchitis (principal); Z87.891 Personal history of nicotine dependence; J43.2 Centrilobular emphysema | CPT/HCPCS: 99214 ==

== ENCOUNTER 2023-10-09 12:59 | Outpatient (CLI) | payer MEDICAID, SELFPAY ==
--- NOTE | 2023-10-09 13:30 | CT_ITS ---
WS: [email or web address] LDCT LUNG CANCER SCREENING TECHNIQUE: Noncontrast CT of the chest with coronal and sagittal reformatted images. CLINICAL INFORMATION: Cancer Screen COMPARISON: CT 09/29/22 DLP: 63.90 mGy.cm DIvol: Mean CTDIvol: 1.30 (mGy) All CT scans at [facility] use at least one of these dose optimization techniques: automat ed exposure control; mA and/or kV adjustment per patient size (includes targeted exams where dose is matched to clinical indication); or iterative reconstruction. FINDINGS: Advanced chronic emphysematous changes. Fibrosis in the lung apices RIGHT greater than LEFT. No new s uspicious pulmonary parenchymal opacities. No mediastinal or hilar lymphadenopathy. Cholelithiasis. Adrenal glands are normal. Normal caliber thoracic aorta. No axillary lymphadenopathy . Small esophageal hiatal hernia. IMPRESSION: CT/CT lung screening [id number] LUNG-RADS: 1-Negative FOLLOW UP: 12 Month: Continue annual screening with LDCT
[2023-10-09 13:48] VITALS: PULSE 101; RESP 20; O2SAT 97
[2023-10-09] MEDS: albuterol 2.5 mg/3 mL Neb INHALATION (13:48)
[2023-10-09 13:52] VITALS: PULSE 105
== END 2023-10-09 13:00 | disposition home or self-care (01) ==
LOC: RAD 12:59
PROVIDERS: PCP Family Medicine; Visit Provider Internal Medicine Pulmonary Disease
DX: Z12.2 Encounter for screening for malignant neoplasm of respiratory organs (principal); J84.10 Pulmonary fibrosis, unspecified; Z87.891 Personal history of nicotine dependence; K80.20 Calculus of gallbladder without cholecystitis without obstruction; K44.9 Diaphragmatic hernia without obstruction or gangrene
CPT/HCPCS: 71271; 94060; 94618; 94726; 94729; J7613

== ENCOUNTER → 2023-12-06 08:02 | Outpatient (BNVA) | payer MEDICAID, SELFPAY | PROVIDERS: PCP Family Medicine; Visit Provider Internal Medicine Pulmonary Disease | DX: J41.0 Simple chronic bronchitis (principal); F17.210 Nicotine dependence, cigarettes, uncomplicated; J43.2 Centrilobular emphysema | CPT/HCPCS: 99214 ==

== ENCOUNTER 2024-04-02 09:19 | Outpatient (CLI) | payer MEDICAID, SELFPAY ==
--- NOTE | 2024-04-02 09:31 | MM_ITS ---
WS: [email or web address] BILATERAL SCREENING DIGITAL TOMOSYNTHESIS MAMMOGRAM WITH CAD HISTORY: SCREENING COMPARISON: 03/05/2023, 02/27/2022 Bilateral CC and MLO views with tomosynthesis and synthetic mammography submitted. Computer aided det ection analyzed. Breast composition: There are scattered areas of fibroglandular density. No suspicious masses, microc alcifications or architectural distortion. MM/[place] [id number] IMPRESSION: BI-RADS: 1-Negative FOLLOW UP: 1 Year Follow-up
== END 2024-04-02 09:20 | disposition home or self-care (01) ==
LOC: RAD 09:19
PROVIDERS: PCP Family Medicine; Visit Provider Family Medicine
DX: Z12.31 Encounter for screening mammogram for malignant neoplasm of breast (principal)
CPT/HCPCS: 77063; 77067

== ENCOUNTER → 2024-06-18 12:43 | Outpatient (BNVA) | payer MEDICAID, SELFPAY | PROVIDERS: PCP Family Medicine; Visit Provider Internal Medicine Critical Care Medicine | DX: J44.89 Other specified chronic obstructive pulmonary disease (principal); F17.211 Nicotine dependence, cigarettes, in remission | CPT/HCPCS: 99213 ==

== ENCOUNTER → 2024-12-08 15:33 | Outpatient (BNVA) | payer MEDICAID, SELFPAY | PROVIDERS: PCP Family Medicine; Visit Provider Family Medicine | DX: E78.00 Pure hypercholesterolemia, unspecified (principal) | CPT/HCPCS: 80053; 80061; 85025 ==

== ENCOUNTER → 2025-02-24 10:53 | Outpatient (BNVA) | payer MEDICAID, SELFPAY | PROVIDERS: PCP Family Medicine; Visit Provider Family Medicine | DX: E78.00 Pure hypercholesterolemia, unspecified (principal) | CPT/HCPCS: 80053; 80061 ==

== ENCOUNTER 2025-04-07 08:39 | Outpatient (CLI) | payer MEDICAID, SELFPAY ==
--- NOTE | 2025-04-07 08:42 | MM_ITS ---
WS: [email or web address] BILATERAL 3D TOMOSYNTHESIS DIGITAL SCREENING MAMMOGRAPHY WITH CAD CLINICAL INFORMATION: SCREENING HISTORY: Screening mammogram. No current complaints. COMPARISON: 04/02/2024 TECHNIQUE: Bilateral CC and MLO views. FINDINGS: The breasts are composed of heterogeneous fibroglandular density tissue, which can limit the detection of small underlying mass lesions. No suspicious mass, asymmetry, calcifications, or architectural distortion. No evidence of malignancy. MM/MM [facility] tomosynthesis [id number] IMPRESSION: DENSITY: The breasts are heterogeneously dense, which may obscure small masses. BI-RADS: 1 - Negative FOLLOW UP: 1 Year Follow-up Recommend return to annual screening mammography.
== END 2025-04-07 08:40 | disposition home or self-care (01) ==
LOC: RAD 08:41
PROVIDERS: PCP Family Medicine; Visit Provider Family Medicine
DX: Z12.31 Encounter for screening mammogram for malignant neoplasm of breast (principal); R92.333 Mammographic heterogeneous density, bilateral breasts
CPT/HCPCS: 77063; 77067

== ENCOUNTER 2025-06-17 07:58 | Outpatient (CLI) | payer MEDICAID, SELFPAY ==
--- NOTE | 2025-06-17 08:30 | US_ITS ---
WS: [email or web address] RIGHT UPPER QUADRANT ULTRASOUND HISTORY: 1 week of abdominal pain COMPARISON: 02/28/2021 Liver: 15.8 cm in length. Normal size liver and echogenicity. No bile duct dilatation or mass. Portal Vein: Normal hepatopetal flow with monophasic waveform. Gallbladder: There is slightly overdistended. Comet tail artifacts from the gallbladder wall and a few scattered hyperechoic foci within the gallbladder wall. The previously described stone in the gallbladder is not evident. This stone is probably obscured in the gallbladder neck. CBD: 0.3 cm Pancreas: Normal size and echogenicity. Right kidney: 9.0 cm in length. Normal size and echogenicity. No hydronephrosis or mass. Aorta and IVC: Unremarkable abdominal aorta and IVC. No ascites. US/US gall bladder [id number] IMPRESSION: 1. Gallbladder is slightly distended with adenomyomatosis. 2. Previously described gallstone stone is not identified. This stone is proba delta obscured in the gallbladder neck. Suggest surgical evaluation for possible cholecystectomy. Gallstone may be or could become entrapped in the gallbladder neck. At this time there is no acute cholecystitis. 3. Normal common bile duct.
== END 2025-06-17 07:59 | disposition home or self-care (01) ==
LOC: RAD 07:59
PROVIDERS: PCP Family Medicine; Visit Provider Family Medicine
DX: K80.20 Calculus of gallbladder without cholecystitis without obstruction (principal); I10 Essential (primary) hypertension
CPT/HCPCS: 76705; 80053; 85025

== ENCOUNTER → 2025-06-18 12:49 | Outpatient (BNVA) | payer MEDICAID, SELFPAY | PROVIDERS: PCP Family Medicine; Visit Provider Student in an Organized Health Care Education/Training Program | DX: K82.9 Disease of gallbladder, unspecified (principal) | CPT/HCPCS: 99204 ==

== ENCOUNTER → 2025-06-22 07:53 | Outpatient (BNVA) | payer MEDICAID, SELFPAY | PROVIDERS: PCP Family Medicine; Visit Provider Internal Medicine | DX: J43.9 Emphysema, unspecified (principal); Z87.891 Personal history of nicotine dependence; I50.9 Heart failure, unspecified | CPT/HCPCS: 99214 ==

== ENCOUNTER 2025-07-02 08:36 | Outpatient (CLI) | payer SELFPAY ==
--- NOTE | 2025-07-02 09:00 | CT_ITS ---
WS: [email or web address] CT chest wo con [id number] HISTORY: COPD TECHNIQUE: Axial imaging performed through the thorax. Coronal and sagittal reformats are submitted. All CT scans at [facility] use at least one of these dose optimization techniques: automated exposure control; mA and/or kV adjustment per patient size (includes targeted exams where dose is matched to clinical indication); or iterative reconstruction. CONTRAST: None DLP: 696.80 mGy.cm COMPARISON: 10/09/2023, 09/29/2022 Lungs and central airway: Marked hyperexpansion. Bullous lung disease. Biapical parenchymal scarring with distortion and pleural tagging. No pulmonary mass or nodule. No pneumonia. Pleura: Normal. No pleural effusion. Heart and pericardium: Normal size heart with no pericardial effusion. Mediastinum and anita: No mediastinum or hilar adenopathy. Vessels: Mild atherosclerosis aorta. Normal size aorta and pulmonary artery. Chest wall and lower neck: No soft tissue masses. Upper abdomen: Gallbladder is nondistended. There is a stone at the gallbladder neck. No adjacent inflammation surrounding the gallbladder. No adrenal mass. Nonobstructing calcification central LEFT kidney. Osseous structures: No destructive process. CT/CT chest wo con [id number] IMPRESSION: 1. Bullous emphysema with biapical parenchymal scarring and pleural tagging. N o mass. 2. No pulmonary mass or nodule. 3. Cholelithiasis without acute cholecystitis.
== END 2025-07-02 08:37 | disposition home or self-care (01) ==
LOC: RAD 08:37
PROVIDERS: PCP Family Medicine
DX: J44.89 Other specified chronic obstructive pulmonary disease (principal); J43.8 Other emphysema; K80.20 Calculus of gallbladder without cholecystitis without obstruction
CPT/HCPCS: 71250

== ENCOUNTER 2025-07-22 09:00 | Outpatient (CLI) | payer MEDICAID, SELFPAY ==
--- NOTE | 2025-07-22 09:15 | USCV_ITS ---
Radha Doe Age: 54 Gender: F : 1970 Exam Date: 07/22/2025 09:49 Ordering Phys: Aaron Ervin Technologist: Exam Location: [facility] [place] Indication: cp sob BP: 120 / 70 HR: 95 Rhythm: Sinus Technical Quality: Adequate MEASUREMENTS (Male / Female) Normal Values 2D ECHO LV Diastolic Diameter PLAX 4.2 cm 4.2 - 5.9 / 3.9 - 5.3 cm IVS Diastolic Thickness 1.0 cm 0.6 - 1.0 / 0.6 - 0.9 cm IVS Systolic Thickness 1.6 cm LVPW Diastolic Thickness 1.1 cm 0.6 - 1.0 / 0.6 - 0.9 cm LVPW Systolic Thickness 1.5 cm LVOT Diameter 2.0 cm LV Ejection Fraction 2D Teich 45.9 % LV Ejection Fraction MOD 4C 63.3 % LV Ejection Fraction MOD 2C 64.6 % LV Ejection Fraction 2C AL 64.8 % LA Diameter 2.8 cm RA Systolic Volume 4C AL 26.9 ml RA Systolic Volume 4C MOD 26.2 ml Aorta at Sinotubular Diameter 2.6 cm IVC Diameter 1.1 cm M-MODE LA Ao Ratio MM 1.1 MV E Point Septal Separation 1.3 cm AV Cusp Separation MM 2.4 cm DOPPLER AV Peak Velocity 98.0 cm/s LVOT Peak Velocity 88.0 cm/s AV Area Cont Eq vti 4.6 cm squared AV Area Cont Eq pk 3.0 cm squared MV Peak Velocity 85.0 cm/s MV Area PHT 5.8 cm squared Mitral E to A Ratio 0.8 TV Peak Velocity 126.5 cm/s TR Peak Velocity 133.0 cm/s TR Peak Gradient 7.1 mmHg PV Peak Velocity 101.0 cm/s FINDINGS Left Ventricle Normal left ventricular size, systolic function and wall thickness, with no regional wall motion abnormalities. EF is 60- 65%. Right Ventricle Normal right ventricular size and systolic function. Right Atrium Normal right atrial size. Left Atrium Normal left atrial size. Mitral Valve Structurally normal mitral valve. Trace mitral valve regurgitation. Aortic Valve Structurally normal aortic valve. No aortic valve stenosis. Tricuspid Valve Insufficient TR jet to calculate RVSP Pulmonic Valve Not well visualized Pericardium Normal Aorta Normal in size IVC Appears to be normal CONCLUSIONS LV systolic function is normal with EF of 55-60% Trace mitral regurgitation Compared to prior echocardiogram from 2021, no significant changes are seen. Matthew Romo MD (Electronically Signed) Final Date: 24 July 2025 14:33 S
== END 2025-07-22 09:01 | disposition home or self-care (01) ==
LOC: RAD 09:01
PROVIDERS: PCP Family Medicine
DX: I50.22 Chronic systolic (congestive) heart failure (principal)
CPT/HCPCS: 93306

== ENCOUNTER → 2025-07-30 10:38 | Outpatient (BNVA) | payer MEDICAID, SELFPAY | PROVIDERS: PCP Family Medicine; Visit Provider Internal Medicine | DX: J43.9 Emphysema, unspecified (principal); I11.0 Hypertensive heart disease with heart failure; I50.9 Heart failure, unspecified; Z87.891 Personal history of nicotine dependence | CPT/HCPCS: 99214; Q3014 ==

== ENCOUNTER 2025-08-18 08:17 | Outpatient (CLI) | payer MEDICAID, SELFPAY ==
[2025-08-18 08:20] VITALS: O2SAT 86; O2SAT 95
[2025-08-18 08:40] VITALS: PULSE 93; RESP 18; O2SAT 96
== END 2025-08-18 08:18 | disposition home or self-care (01) ==
LOC: RT 08:18
PROVIDERS: PCP Family Medicine
DX: J44.89 Other specified chronic obstructive pulmonary disease (principal)
CPT/HCPCS: 94060; 94618; 94726; 94729; 94760; J7613